=== PATIENT | male | born 1940 | race Two or more races ===

== ENCOUNTER 2016-07-10 17:23 | Inpatient (IN) | payer MEDICAID, MEDICARE ==
[~2016-07-10] VITALS: Ht 172.7 cm; Wt 77.1 kg
[~2016-07-10 17:23] MED LIST: ACET650S26 GT; ALBU2.5V13 HHN; AMIN30LI4 GT; ASCO500S2 GT; ASPI81TA2 GT; BACL10TA GT; BISA10SU8 RC; DOCU50LI GT; FAMO20TA8 GT; FOLI1TAB16 GT; GABA-534 GT; IPRA0.2S9 HHN; LACT-96 GT; MAGN400O6 GT; MULT1TAB11 GT; NA P133E RC; TAMS0.4C34 GT
--- NOTE | 2016-07-10 17:30 | NUR ---
NADER FROM [facility] FOR LOW O2 SAT- PT ON T PIECE. NOTED OBTUNDED. VSS. IV ACCESS DIVISION OPERATIONS MANAGER ON LH 22G. AT BS FOR EVAL. SAFETY AND COMFORT MEASURES PROVIDED. WILL MONITOR.
[2016-07-10] MEDS ORDERED: IV NS 0.9% 1,000 ML ONE (17:55)
[2016-07-10] MEDS ORDERED: IV SET PRIMARY PUMP SET 1 EA INFUS.SET MC ONE ×5 (17:55→21:39)
--- NOTE | 2016-07-10 17:55 | NUR ---
MANAGER DISH AT FOR BLOOD DRAW.
--- NOTE | 2016-07-10 17:55 | NUR ---
CALLED NURSING SUP. FOR INOCENCIO BED
[2016-07-10] MEDS ORDERED: IV NS 0.9% 1,000 ML BAG IV ONE (18:00)
--- NOTE | 2016-07-10 18:00 | NUR ---
IV ACCESS STARTED. PT MEDICATED ORDERED.
[2016-07-10 18:06] LABS: BASOPHILS % (AUTO) 0.2 % (0.0-2.0); EOSINOPHILS % (AUTO) 8.1 % (0.0-6.0); HEMATOCRIT 31 % (39-51); HEMOGLOBIN 10.3 g/dL (13.5-17.5); LYMPHOCYTES # (AUTO) 1.1 /CMM (0.8-4.8); LYMPHOCYTES % (AUTO) 8.2 % (20.0-44.0); MEAN CORPUSCULAR HEMOGLOBIN 30 PG (26.0-33.0); MEAN CORPUSCULAR HGB CONC 33 g/dl (31.0-36.0); MEAN CORPUSCULAR VOLUME 91 fL (80-96); MONOCYTES % (AUTO) 7.5 % (2.0-12.0); NEUTROPHILS # (AUTO) 9.8 /CMM (1.8-8.9); PLATELET COUNT (AUTO) 348 /CMM (150-450); RDW COEFFICIENT OF VARIATION 15.8 (11.5-15.0); RED BLOOD CELL COUNT(AUTO) 3.42 MIL/uL (4.5-6.0); WHITE BLOOD COUNT (AUTO) 12.9 K/uL (4.3-11.0)
[2016-07-10 18:13] LABS: CALCIUM, SERUM 8.8 mg/dL (8.5-10.1); CARBON DIOXIDE 39 mmol/L (21-32); CHLORIDE 93 mmol/L (98-107); CREATININE 0.7 mg/dL (0.6-1.3); GLUCOSE 73 mg/dL (74-106); POTASSIUM 4.2 mmol/L (3.5-5.1); SODIUM SERUM 130 mmol/L (136-145); UREA NITROGEN, BLOOD 17 mg/dL (7-18)
[2016-07-10 18:21] LABS: TROPONIN I < 0.017 ng/mL (0.00-0.056)
[2016-07-10] MEDS ORDERED: FLUO15GE TP (18:21)
[2016-07-10] MEDS ORDERED: FURO-145 GT (18:21)
[2016-07-10] MEDS ORDERED: FERR300L GT (18:21)
[2016-07-10] MEDS ORDERED: IPRA0.2S9 IH (18:21)
[2016-07-10] MEDS ORDERED: EPOE1VIA6 SQ (18:21)
[2016-07-10] MEDS ORDERED: BLOO-668 IN (18:21)
[2016-07-10] MEDS ORDERED: INSU100V3 SQ (18:21)
[2016-07-10] MEDS ORDERED: SCOP1PAT TD (18:21)
[2016-07-10] MEDS ORDERED: SACC250C6 GT (18:21)
[2016-07-10] MEDS ORDERED: BENZ1LOZ58 MM (18:21)
[2016-07-10] MEDS ORDERED: ALBU2.5V13 IH (18:21)
[2016-07-10] MEDS ORDERED: HYDR-3326 GT (18:21)
[2016-07-10] MEDS ORDERED: MONT10TA22 GT (18:21)
[2016-07-10] MEDS ORDERED: INSU100V7 SQ (18:21)
[2016-07-10] MEDS ORDERED: AMOX500C2 GT (18:21)
[2016-07-10 18:26] LABS: ALANINE AMINOTRANSFERASE 20 U/L (12-78); ALBUMIN 2.7 g/dL (3.4-5.0); ALKALINE PHOSPHATASE 70 U/L (46-116); ASPARTATE AMINOTRANSFERASE 17 U/L (15-37); B-TYPE NATRIURETIC PEPTIDE 221 PG/ML (0-125); BILIRUBIN,DIRECT 0.1 mg/dL (0.0-0.2); BILIRUBIN,TOTAL 0.2 mg/dL (0.2-1.0); TOTAL PROTEIN, SERUM 7.2 g/dL (6.4-8.2)
[2016-07-10] MEDS ORDERED: CEFTRIAXONE 1GM BAG (ER ONLY) 50 ML IV ONE ×2 (19:00→19:03)
[2016-07-10] MEDS ORDERED: VANCOMYCIN 1 GM in IV D5W 250 ML IV ONE (19:00)
[2016-07-10] MEDS ORDERED: AZITHROMYCIN 500 MG in IV D5W 250 ML IV ONE (19:00)
--- NOTE | 2016-07-10 19:00 | NUR ---
REPORT RECEIVED BY LABERTA OSORIO
--- NOTE | 2016-07-10 19:01 | NUR ---
PT OBTUNDED, CONNECTED TO TRACH, INTACT AND PATENT CONNECTED TO 02 5LMP. NO SOB NOTED. PT NOTED WITH GT INTACT AND PATENT. PT ALSO NOTED WITH F/C DRAINING WELL. PT ALSO NOTED WITH RASH THROUGHOUT BODY. PT GOWNED AND PLACED ON MONITOR. WILL CONTINUE TO MONITOR.
--- NOTE | 2016-07-10 19:04 | NUR ---
OCCULT STOOL COLLECTED.
--- NOTE | 2016-07-10 19:10 | NUR ---
CLEANED PT, STOOL OB OBTAINED, SENT.
--- NOTE | 2016-07-10 19:25 | NUR ---
PT ASSIGNED TO INOCENCIO BED 104
[2016-07-10] MEDS ORDERED: AZITHROMYCIN 500 MG VIAL ONE (19:50)
[2016-07-10] MEDS ORDERED: IV D5W 250 ML IV ONE ×2 (19:51→21:35)
--- NOTE | 2016-07-10 19:59 | NUR ---
INFORMED DR. MCGARRY PT NOTED WITH RASHS ON PRASANTH ARMS.
[2016-07-10] MEDS ORDERED: diphenhydrAMINE HCL 50 MG/ML VIAL IV ONE (20:00)
[2016-07-10] MEDS ORDERED: diphenhydrAMINE HCL 50 MG/ML VIAL ONE (20:00)
--- NOTE | 2016-07-10 20:15 | NUR ---
REPORT GIVEN TO ALBERTA CABRERA FOR C.O.C.
[2016-07-10 20:25] VITALS: BP 128/71
--- NOTE | 2016-07-10 20:38 | NUR ---
PT TRASNFERED PER ACLS PROTOCOL.
[2016-07-10 20:45] VITALS: BP 128/71
--- NOTE | 2016-07-10 20:45 | NUR ---
WAITER/WAITRESS COCKTAIL LOUNGE INITIAL NOTES RECEIVED PATIENT ASLEEP VIA GURNEY. RECEIVED REPORT FROM ER NURSE ROSALEE. NO S/S OF PAIN OR DISCOMFORT. RESPIRATIONS EVEN AND UNLABORED, WITH T-MASK 5LPMO2, SPO2 100%. SKIN WARM AND DRY TO TOUCH. WITH LAC 20 PATENT AND INTACT WITH ZITHROMAX RUNNING. PER REPORT VANCO STILL NEEDS TO BE GIVEN. WITH GT PATENT AND INTACT, IN PLACE. F/C DRAINING BY GRAVITY. ON TELE MONITOR SINUS RHYTHM. BODY ASSESSMENT DONE. HOB KEPT ELEVATED. SIDE RAILS UP AND LOCKED. BED KEPT AT LOWEST POSITION. WILL CONTINUE TO MONITOR.
[2016-07-10] MEDS ORDERED: ACETAMINOPHEN 650 MG/20.3 ML UDC GT PRN (21:00)
[2016-07-10] MEDS ORDERED: ENOXAPARIN SODIUM 40 MG/0.4 ML DISP.SYRIN SQ SCH (21:00)
[2016-07-10] MEDS ORDERED: MORPHINE SULFATE INJ 2 MG/ML DISP.SYRIN IV PRN (21:00)
[2016-07-10] MEDS ORDERED: BLOOD SUGAR DIAGNOSTIC 1 EACH STRIP IN SCH (21:00)
--- NOTE | 2016-07-10 21:00 | NUR ---
WITH ORDERS FOR ZOSYN, PATIENT WITH ALLERGY TO CEFTRIAXONE, INFORMED CINDA OLSON TO GIVE ZOSYN AND CONTINUE GTF ORDER FROM FACILITY.
[2016-07-10] MEDS ORDERED: FAMOTIDINE (20 MG) 20 MG TABLET ONE (21:35)
[2016-07-10] MEDS ORDERED: ENOXAPARIN SODIUM 40 MG/0.4 ML DISP.SYRIN SQ ONE (21:35)
[2016-07-10] MEDS ORDERED: VANCOMYCIN 1 GM VIAL ONE (21:35)
[2016-07-10] MEDS ORDERED: PIPERACILLIN /TAZOBACTAM 3.375 G VIAL IV ONE (21:35)
[2016-07-10] MEDS ORDERED: IV D5W 100 ML IV ONE (21:36)
[2016-07-10] MEDS ORDERED: SECONDARY IV SET 1 EA INFUS.SET MC ONE (21:40)
[2016-07-10] MEDS ORDERED: IV D5/ 0.9% NACL 1,000 ML IV ONE (21:40)
[2016-07-10] MEDS: IV D5/ 0.9% NACL 1,000 ML IV PRN (21:45)
[2016-07-10] MEDS: PIPERACILLIN /TAZOBACTAM 3.375 G in IV D5W 50 ML IV SCH (21:53)
[2016-07-10] MEDS: FAMOTIDINE (20 MG) 20 MG TABLET GT SCH (21:54)
[2016-07-10] MEDS: FIBERSOURCE HN 1,000 ML BOTTLE GT PRN (22:31)
[2016-07-10] MEDS ORDERED: Z GUARD REMEDY 2 OZ OINT TP PRN (23:30)
[2016-07-10] MEDS ORDERED: IPRATROPIUM NEB FS 0.5 MG/2.5 ML AMPUL.NEB NEB PRN (23:30)
[2016-07-10] MEDS ORDERED: BISACODYL SUPP (10 MG) 10 MG/SUPP.RECT SUPP.RECT RC PRN (23:30)
[2016-07-10] MEDS ORDERED: MENTHOL/CETYLPYRD (CEPACOL) 1 LOZ LOZENGE PO PRN (23:30)
[2016-07-10] MEDS ORDERED: ALBUTEROL FS 2.5 MG/3 ML VIAL.NEB NEB PRN (23:30)
[2016-07-10] MEDS ORDERED: INSULIN DETEMIR 100 UNIT/ML CARTRIDGE SQ ONE (23:46)
[2016-07-10] MEDS: INSULIN REGULAR, HUMAN 100 UNIT/ML 3 ML VIAL SQ PRN (23:56)
[2016-07-10] MEDS: INSULIN DETEMIR 100 UNIT/ML CARTRIDGE SQ SCH (23:56)
[2016-07-11] VITALS: BP 115/55
[2016-07-11] MEDS ORDERED: DEXTROSE 50%-WATER 50 ML DISP.SYRIN IV PRN
[2016-07-11] MEDS ORDERED: NA PHOS,M-B/NA PHOS,DI-BA 1 EA ENEMA RC PRN ×2 (00:30→08:30)
[2016-07-11] MEDS: IPRATROPIUM NEB FS 0.5 MG/2.5 ML AMPUL.NEB NEB SCH ×4 (01:27→20:20)
[2016-07-11] MEDS: ALBUTEROL FS 2.5 MG/3 ML VIAL.NEB NEB SCH ×4 (01:27→20:20)
[2016-07-11] MEDS ORDERED: BACLOFEN (10 MG) 10 MG TABLET ONE (01:28)
--- NOTE | 2016-07-11 01:38 | NUR ---
ALL [facility] ONCE CLEARED FOR PATIENTS SAFETY.
[2016-07-11 04:00] VITALS: BP 110/55
[2016-07-11] MEDS ORDERED: BACLOFEN (10 MG) 10 MG TABLET PO SCH (05:00)
[2016-07-11] MEDS ORDERED: ACETAMINOPHEN 325 MG TABLET ONE (05:01)
[2016-07-11] MEDS ORDERED: ACETAMINOPHEN 650 MG/20.3 ML UDC ONE (05:05)
[2016-07-11] MEDS: PIPERACILLIN /TAZOBACTAM 3.375 G in IV D5W 50 ML IV SCH (05:06)
[2016-07-11] MEDS: BLOOD SUGAR DIAGNOSTIC 1 EACH STRIP IN SCH ×4 (05:06→17:39)
[2016-07-11] MEDS: INSULIN REGULAR, HUMAN 100 UNIT/ML 3 ML VIAL SQ PRN ×2 (05:09→13:04)
[2016-07-11 05:56] LABS: BASOPHILS % (AUTO) 0.2 % (0.0-2.0); EOSINOPHILS # (AUTO) 0.6 /CMM (0.0-0.7); EOSINOPHILS % (AUTO) 5.1 % (0.0-6.0); HEMATOCRIT 30 % (39-51); HEMOGLOBIN 9.7 g/dL (13.5-17.5); LYMPHOCYTES # (AUTO) 1.2 /CMM (0.8-4.8); LYMPHOCYTES % (AUTO) 11.1 % (20.0-44.0); MEAN CORPUSCULAR HEMOGLOBIN 30 PG (26.0-33.0); MEAN CORPUSCULAR HGB CONC 33 g/dl (31.0-36.0); MEAN CORPUSCULAR VOLUME 92 fL (80-96); MONOCYTES # (AUTO) 0.9 /CMM (0.1-1.30); MONOCYTES % (AUTO) 8.6 % (2.0-12.0); NEUTROPHILS # (AUTO) 8.1 /CMM (1.8-8.9); PLATELET COUNT (AUTO) 332 /CMM (150-450); RDW COEFFICIENT OF VARIATION 16.8 (11.5-15.0); RED BLOOD CELL COUNT(AUTO) 3.24 MIL/uL (4.5-6.0); WHITE BLOOD COUNT (AUTO) 10.8 K/uL (4.3-11.0)
[2016-07-11 06:06] LABS: CALCIUM, SERUM 8.6 mg/dL (8.5-10.1); CREATININE 0.7 mg/dL (0.6-1.3); POTASSIUM 4.4 mmol/L (3.5-5.1)
--- NOTE | 2016-07-11 07:30 | NUR ---
RN NOTES RN NOTES RECEIVED PATIENT IN BED ASLEEP WITH BREATHING NORMAL, EVEN AND UNLABORED. NO SOB NOTED. ON COOL AEROSOL WITH O2 5L, SATURATING WELL. NO ACUTE DISTRESS NOTED. NO PAIN, NO DISCOMFORT NOTED. IV LAC AND LH ARE PATENT AND INTACT, NO INFILTRATION NOTED, CONT ON IVF PER ORDER. BOWEL SOUNDS PRESENT. ON GT FEED TOLERATED WELL. ASPIRATION PRECAUTION TAKEN. F/C IS PATENT AND INTACT, DRAINING WITH GRAVITY. PULSES PRESENT. SAFETY MEASURE OBSERVED. ALL NEEDS ATTENDED. CALL LIGHT WITH IN REACH. WILL CONT TO MONITOR.
--- NOTE | 2016-07-11 07:35 | NUR ---
WAREHOUSE ADMINISTRATOR CLOSING NOTES NO SIGNIFICANT CHANGES OVERNIGHT. ALL NEEDS ANTICIPATED AND MET. NO RESPIRATORY DISTRESS NOTED. ALL DUE MEDS GIVEN. TOLERATING GTF. F/C DRAINING. IVF RUNNING. HOB KEPT ELEVATED. SIDE RAILS UP AND LOCKED. BED KEPT AT LOWEST POSITION. CALL LIGHT KEPT WITHIN EASY REACH. CONTINUITY OF CARE ENDORSED TO AM NURSE.
[2016-07-11 08:00] VITALS: BP 129/47
[2016-07-11] MEDS ORDERED: ENOXAPARIN SODIUM 40 MG/0.4 ML DISP.SYRIN SQ SCH (08:29)
[2016-07-11] MEDS ORDERED: FIBER GT SCH (08:30)
[2016-07-11] MEDS ORDERED: [UNRECOGNIZED DRUG - OTHER] GT SCH (08:30)
[2016-07-11] MEDS ORDERED: LACTOSE FREE FOOD GT SCH (08:30)
[2016-07-11] MEDS ORDERED: IPRATROPIUM NEB FS 0.5 MG/2.5 ML AMPUL.NEB IH PRN (08:30)
[2016-07-11] MEDS ORDERED: INSULIN REGULAR, HUMAN 100 UNIT/ML 3 ML VIAL SQ PRN (08:30)
[2016-07-11] MEDS ORDERED: FEE PK DOSING 1 MIN EA MC ONE (08:49)
[2016-07-11] MEDS ORDERED: HYDROCODONE/APAP 5/325MG 1 EACH TABLET GT SCH (09:00)
[2016-07-11] MEDS ORDERED: GABAPENTIN 300 MG CAPSULE GT SCH (09:00)
[2016-07-11] MEDS ORDERED: Medication Not On Formulary EA (Saccharomyces Boulardii (Florastor) 250 MG) GT SCH (09:00)
[2016-07-11] MEDS ORDERED: FUROSEMIDE 20 MG TABLET GT SCH (09:00)
[2016-07-11] MEDS ORDERED: FOLIC ACID 1 MG TABLET GT SCH (09:00)
[2016-07-11] MEDS ORDERED: FERROUS SULFATE UDC 300 MG/5 ML UDC GT SCH (09:00)
[2016-07-11] MEDS ORDERED: DOCUSATE SODIUM LIQ 100 MG/10 ML UDC GT SCH (09:00)
[2016-07-11] MEDS ORDERED: SECONDARY IV SET 1 EA INFUS.SET MC ONE (09:09)
[2016-07-11] MEDS: LACTOBACILLUS RHAMNOSUS GG 1 EACH CAP.SPRINK PO SCH ×2 (09:25→17:39)
[2016-07-11] MEDS: FERROUS SULFATE UDC 300 MG/5 ML UDC PO SCH (09:25)
[2016-07-11] MEDS: DOCUSATE SODIUM LIQ 100 MG/10 ML UDC GT SCH (09:25)
[2016-07-11] MEDS: GABAPENTIN 300 MG CAPSULE GT SCH (09:25)
[2016-07-11] MEDS: FOLIC ACID 1 MG TABLET GT SCH (09:25)
[2016-07-11] MEDS: FUROSEMIDE 20 MG TABLET GT SCH (09:27)
[2016-07-11] MEDS: FAMOTIDINE (20 MG) 20 MG TABLET GT SCH ×2 (09:27→21:12)
[2016-07-11] MEDS: VANCOMYCIN 1 GM in IV D5W 250 ML IV SCH ×2 (09:28→21:13)
[2016-07-11] MEDS: HYDROCODONE/APAP 5/325MG 1 EACH TABLET GT SCH ×2 (09:29→21:13)
[2016-07-11] MEDS: FLUOCINONIDE 0.05% 15 GM OINT..GM. TP SCH ×2 (09:42→17:40)
[2016-07-11] MEDS ORDERED: FAMOTIDINE (20 MG) 20 MG TABLET GT SCH (11:00)
[2016-07-11 12:00] VITALS: BP 105/49
[2016-07-11] MEDS: PIPERACILLIN /TAZOBACTAM 4.5 G in IV D5W 50 ML IV SCH ×2 (12:56→17:39)
[2016-07-11] MEDS: BACLOFEN (10 MG) 10 MG TABLET GT SCH ×2 (12:56→21:13)
[2016-07-11] MEDS ORDERED: IPRATROPIUM NEB FS 0.5 MG/2.5 ML AMPUL.NEB HHN SCH (13:30)
[2016-07-11 16:00] VITALS: BP 101/43
[2016-07-11] MEDS: IV D5/ 0.9% NACL 1,000 ML IV PRN (17:58)
--- NOTE | 2016-07-11 19:50 | NUR ---
RN NOTES RECEIVED PT AWKE WATCHING TV ON BED. NO ACUTE RESP DISTRESS NALLELY. TRACH WITH C/A SATING 96% ABLE TO EXPRESS FEELINGS AOX 1 NON VERBAL. WITH GTF FIBERSOURCE @ 60 CC/HR NALLELY/ WELL INTACT PATENCY CHECKED NO RESIDUAL IV SITE ON LAC G 20 AND LEFT HAND G 22 WITH D5NS @ 70 CC/HR INTACT AND PATENT. F/C DRAINED WITH YELLOW COLOR URINE. KEPT PT CLEAN AND COMFORTABLE IN BED. BED LOCKED AND SECURED. OFFLOADED EXT WITH PILLOWS. REDUCED PRESSURE TO BONY PROMINENCE AREA. WILL CONTINUE TO MONITOR.
--- NOTE | 2016-07-11 19:52 | NUR ---
RN NOTES PATIENT ENDORSED TO NEXT SHIFT IN STABLE CONDITION WITH BREATHING NORMAL, EVEN AND UNLABORED. NO SOB NOTED. NO ACUTE DISTRESS NOTED. KEPT CLEAN, DRY AND COMFORTABLE. ALL NEEDS ATTENDED. CALL LIGHT WITH IN REACH. SAFETY MEASURE OBSERVED. WILL CONT TO MONITOR.
[2016-07-11 20:00] VITALS: BP 115/70
[2016-07-11] MEDS: TAMSULOSIN 0.4 MG CAP.SR.24H GT SCH (21:12)
[2016-07-11] MEDS: MONTELUKAST SODIUM (10MG) 10 MG TABLET GT SCH (21:13)
[2016-07-11] MEDS: ENOXAPARIN SODIUM 40 MG/0.4 ML DISP.SYRIN SQ SCH (21:14)
[2016-07-11] MEDS: FIBERSOURCE HN 1,000 ML BOTTLE GT PRN (21:14)
[2016-07-11] MEDS: INSULIN DETEMIR 100 UNIT/ML CARTRIDGE SQ SCH (21:32)
[2016-07-11] MEDS ORDERED: TAMSULOSIN 0.4 MG CAP.SR.24H GT SCH (22:00)
[2016-07-11] MEDS ORDERED: INSULIN GLARGINE HUM REC ANLOG 10 UNIT SQ SCH (22:00)
[2016-07-11] MEDS ORDERED: MONTELUKAST SODIUM (10MG) 10 MG TABLET GT SCH (22:00)
[2016-07-12] MEDS: PIPERACILLIN /TAZOBACTAM 4.5 G in IV D5W 50 ML IV SCH ×4 (00:22→17:00)
[2016-07-12] MEDS: BLOOD SUGAR DIAGNOSTIC 1 EACH STRIP IN SCH ×4 (00:31→17:01)
[2016-07-12] MEDS: INSULIN REGULAR, HUMAN 100 UNIT/ML 3 ML VIAL SQ PRN ×3 (00:41→11:36)
[2016-07-12] MEDS: ALBUTEROL FS 2.5 MG/3 ML VIAL.NEB NEB SCH ×4 (01:54→19:28)
[2016-07-12] MEDS: IPRATROPIUM NEB FS 0.5 MG/2.5 ML AMPUL.NEB NEB SCH ×4 (01:54→19:28)
[2016-07-12 04:00] VITALS: BP 115/50
[2016-07-12] MEDS: BACLOFEN (10 MG) 10 MG TABLET GT SCH ×3 (05:14→22:11)
--- NOTE | 2016-07-12 06:24 | NUR ---
RN NOTES PT REMAINED IN STABLE CONDITION TOLERATED TRACH WITH C/A SATING 97%. NO ACUTE RESP DISTRESS. SUCTIONED FREQ. DUE TO EXCESSIVE SECRETION WITH WHITISH THICK SECRETIONS. PT EXPRESSED. DENIED ANY PAIN REPOSITIONED Q 2HOURS AND PRN PT COMFORTABLE. F/C REMAINED INTACT WITH ADEQ URINE OUTPUT. IV SITE INTACT AND PATENT. NO S/S OF HYPO OR HYPERGLYCEMIA NOTED. PHOTO TAKEN FOR ANY SKIN ISSUE. KEPT CLEAN AND DRY. ALL NEEDS ATTENDED.
--- NOTE | 2016-07-12 07:00 | NUR ---
RN NOTES RECEIVED PT ON BED ,ALERT , NON VERBAL , TRACH PORTEX #8 WITH 35% COOL AEROSOL, TRACH CARE DONE , NO SOB NOTED, FIBERSOURCE @ 60 CC/HR RUNNING VIA GT , TOLERATING WELL, NO RESIDUAL IV SITE ON LAC G 20 AND LEFT HAND G 22 WITH D5NS @ 70 CC/HR INTACT AND PATENT. F/C DRAINED WITH YELLOW COLOR URINE.SR UP x3, CALL LIGHT WITHIN EASY REACH , OFFLOADED EXT WITH PILLOWS. REDUCED PRESSURE TO BONY PROMINENCE AREA. WILL CONTINUE TO MONITOR PT CLOSELY AND NOTIFY MD FOR ANY SIGNIFICANT CHANGES.
[2016-07-12 07:31] LABS: CALCIUM, SERUM 8.3 mg/dL (8.5-10.1); CREATININE 0.7 mg/dL (0.6-1.3); POTASSIUM 4.1 mmol/L (3.5-5.1)
[2016-07-12 08:00] VITALS: BP 130/65
[2016-07-12] MEDS: FERROUS SULFATE UDC 300 MG/5 ML UDC PO SCH (08:28)
[2016-07-12] MEDS: DOCUSATE SODIUM LIQ 100 MG/10 ML UDC GT SCH (08:28)
[2016-07-12] MEDS: FAMOTIDINE (20 MG) 20 MG TABLET GT SCH ×2 (08:29→22:11)
[2016-07-12] MEDS: LACTOBACILLUS RHAMNOSUS GG 1 EACH CAP.SPRINK PO SCH ×2 (08:29→16:00)
[2016-07-12] MEDS: FOLIC ACID 1 MG TABLET GT SCH (08:29)
[2016-07-12] MEDS: VANCOMYCIN 1 GM in IV D5W 250 ML IV SCH ×2 (08:29→21:00)
[2016-07-12] MEDS: HYDROCODONE/APAP 5/325MG 1 EACH TABLET GT SCH ×2 (08:29→22:12)
[2016-07-12] MEDS: GABAPENTIN 300 MG CAPSULE GT SCH (08:29)
[2016-07-12] MEDS: FUROSEMIDE 20 MG TABLET GT SCH (08:29)
[2016-07-12] MEDS: FLUOCINONIDE 0.05% 15 GM OINT..GM. TP SCH ×2 (08:31→16:02)
[2016-07-12] MEDS: LORAZEPAM INJ 2 MG/ML VIAL IV PRN ×2 (10:00→15:58)
[2016-07-12] MEDS ORDERED: HYDROGEL DRESSING 90 GM TUBE TP PRN (10:30)
--- NOTE | 2016-07-12 10:37 | NUR ---
WOUND CARE CONSULT: PT PRESENTS WITH RASHES AND WOUNDS, PRESENT ON ADMISSION. RAISED SCAR NOTED TO SACRAL AREA. RECOMMENDATIONS MADE FOR SKIN PROTECTION AND WOUND CARE. DISCUSSED WITH NURSING STAFF. PT ON RAFFAELE ISOFLEX LOW AIRLOSS BED. PT HAS CONTRACTED LOWER EXTREMITIES. PT TO BE TURNED AND REPOSITIONED EVERY 2 HRS PT CONDITION PERMITS, HEELS FLOATED. IN AGREEMENT WITH PLAN OF CARE. Addendum: 07/12/16 at 1039 by DOMINIQUE BLUNT WNDNU Amended: Links added.
[2016-07-12] MEDS: HYDROGEL DRESSING 90 GM TUBE TP SCH (11:33)
[2016-07-12] MEDS: CLOTRIMAZOLE 1% 15 GM TUBE TP SCH ×2 (11:33→16:03)
[2016-07-12 12:00] VITALS: BP_SYST 101; BP_DIAS 43; BP_DIAS 53
--- NOTE | 2016-07-12 12:00 | NUR ---
RN NOTES DR GILLIAM NOTIFIED REGARDING DIETITIAN RECOMMENDATION FOR TUBE FEEDING AND VITAMIN C AND MVI , NO NEW ORDER GIVEN .
[2016-07-12] MEDS: FIBERSOURCE HN 1,000 ML BOTTLE GT PRN (14:53)
[2016-07-12 16:00] VITALS: BP 118/62
--- NOTE | 2016-07-12 18:06 | NUR ---
RN NOTES TRACH CARE DONE, VSS STABLE, TOLERATING TF WELL, NO RESIDUAL NOTED, ON TELE SR -ST , SR UP x3. CALL LIGHT WITHIN EASY REACH , MEDICATED PER MD ORDER , NO SIGNIFICANT CHANGES NOTED ON THIS SHIFT.
--- NOTE | 2016-07-12 19:00 | NUR ---
RN INITIAL NOTES: PT RECEIVED FROM AM STAFF. PT WITH TRACH PORTEX 8 /COOL AEROSOL W/FIO2 35%, TOLERATING WELL, NO SHORTNESS OF BREATH OR S/S OF DISTRESS. ON TELE ST/HR 108. SUCTION W/ WHITE THICK SECRETION. ON GTF/FIBERSOUCE TOLERATING WELL. PATENCY CHECK NO RESIDUAL. IV SITE LAC/20G LH 22HL. INTACT AND PATENT FLUSHED. KEPT PT CLEAN AND DRY. OFF LOADED EXTREMITIES WITH PILLOWS. WILL CONTINUE TO MONITOR PT.
[2016-07-12 20:00] VITALS: BP 125/61
[2016-07-12] MEDS: TAMSULOSIN 0.4 MG CAP.SR.24H GT SCH (22:11)
[2016-07-12] MEDS: ENOXAPARIN SODIUM 40 MG/0.4 ML DISP.SYRIN SQ SCH (22:13)
[2016-07-12] MEDS: INSULIN DETEMIR 100 UNIT/ML CARTRIDGE SQ SCH (22:22)
[2016-07-12] MEDS: MONTELUKAST SODIUM (10MG) 10 MG TABLET GT SCH (22:22)
[2016-07-13] VITALS (7 sets, daily range): BP systolic 98–135; BP diastolic 43–90
[2016-07-13] MEDS: PIPERACILLIN /TAZOBACTAM 4.5 G in IV D5W 50 ML IV SCH ×4 (00:33→17:38)
[2016-07-13] MEDS: BLOOD SUGAR DIAGNOSTIC 1 EACH STRIP IN SCH ×4 (00:41→17:38)
[2016-07-13] MEDS: INSULIN REGULAR, HUMAN 100 UNIT/ML 3 ML VIAL SQ PRN ×3 (00:44→17:48)
[2016-07-13] MEDS: ALBUTEROL FS 2.5 MG/3 ML VIAL.NEB NEB SCH ×4 (01:53→19:19)
[2016-07-13] MEDS: IPRATROPIUM NEB FS 0.5 MG/2.5 ML AMPUL.NEB NEB SCH ×4 (01:53→19:19)
[2016-07-13] MEDS: LORAZEPAM INJ 2 MG/ML VIAL IV PRN ×2 (04:34→16:07)
[2016-07-13] MEDS: BACLOFEN (10 MG) 10 MG TABLET GT SCH ×3 (04:43→21:37)
[2016-07-13] MEDS ORDERED: IV D5/ 0.9% NACL 0 ML IV ONE (04:50)
[2016-07-13] MEDS ORDERED: IV NS 0.9% 250 ML IV ONE (05:39)
--- NOTE | 2016-07-13 07:02 | NUR ---
RN NOTES TRACH CARE DONE, VSS STABLE, TOLERATING TF WELL, AFEBRILE, SUCTIONED FREQUENTLY, NO RESIDUAL NOTED, ON TELE SR 98 , SR UP x3. CALL LIGHT WITHIN EASY REACH , MEDICATED PER MD ORDER , NO SIGNIFICANT CHANGES NOTED ON SCALE TANK OPERATOR. WILL ENDORSE TO MORNING SHIFT.
[2016-07-13 07:15] LABS: CALCIUM, SERUM 9.1 mg/dL (8.5-10.1); CREATININE 0.7 mg/dL (0.6-1.3); MAGNESIUM 1.9 mg/dL (1.8-2.4); POTASSIUM 4.4 mmol/L (3.5-5.1)
[2016-07-13] MEDS: HYDROGEL DRESSING 90 GM TUBE TP SCH (08:05)
[2016-07-13] MEDS: FAMOTIDINE (20 MG) 20 MG TABLET GT SCH ×2 (08:16→21:38)
[2016-07-13] MEDS: GABAPENTIN 300 MG CAPSULE GT SCH (08:16)
[2016-07-13] MEDS: FUROSEMIDE 20 MG TABLET GT SCH (08:16)
[2016-07-13] MEDS: LACTOBACILLUS RHAMNOSUS GG 1 EACH CAP.SPRINK PO SCH ×2 (08:16→16:04)
[2016-07-13] MEDS: HYDROCODONE/APAP 5/325MG 1 EACH TABLET GT SCH ×2 (08:17→21:38)
[2016-07-13] MEDS: FOLIC ACID 1 MG TABLET GT SCH (08:17)
[2016-07-13] MEDS: DOCUSATE SODIUM LIQ 100 MG/10 ML UDC GT SCH (08:17)
[2016-07-13] MEDS: FERROUS SULFATE UDC 300 MG/5 ML UDC PO SCH (08:17)
[2016-07-13] MEDS: CLOTRIMAZOLE 1% 15 GM TUBE TP SCH ×2 (08:21→16:01)
[2016-07-13] MEDS: FLUOCINONIDE 0.05% 15 GM OINT..GM. TP SCH ×2 (08:21→16:00)
[2016-07-13 08:26] LABS: BASOPHILS % (AUTO) 0.3 % (0.0-2.0); EOSINOPHILS # (AUTO) 0.5 /CMM (0.0-0.7); EOSINOPHILS % (AUTO) 4.6 % (0.0-6.0); HEMATOCRIT 30 % (39-51); HEMOGLOBIN 9.7 g/dL (13.5-17.5); LYMPHOCYTES # (AUTO) 1.8 /CMM (0.8-4.8); LYMPHOCYTES % (AUTO) 16.4 % (20.0-44.0); MEAN CORPUSCULAR HEMOGLOBIN 30 PG (26.0-33.0); MEAN CORPUSCULAR HGB CONC 32 g/dl (31.0-36.0); MEAN CORPUSCULAR VOLUME 92 fL (80-96); MONOCYTES # (AUTO) 1.1 /CMM (0.1-1.30); MONOCYTES % (AUTO) 10.3 % (2.0-12.0); NEUTROPHILS # (AUTO) 7.6 /CMM (1.8-8.9); NEUTROPHILS % (AUTO) 68.4 % (43.0-81.0); PLATELET COUNT (AUTO) 306 /CMM (150-450); RDW COEFFICIENT OF VARIATION 17.4 (11.5-15.0); RED BLOOD CELL COUNT(AUTO) 3.28 MIL/uL (4.5-6.0); WHITE BLOOD COUNT (AUTO) 11.1 K/uL (4.3-11.0)
--- NOTE | 2016-07-13 09:00 | NUR ---
INSTITUTIONAL RESEARCH COORDINATOR NOTE Pt in bed. AOx1, anxious. Denies pain. Gtube going at 60ml/hr, no residuals. Tpiece, O2 100% on cool aerosol. Tele monitoring. Esparza patent with yellow urine. Ok'd by pharmacy to hang vanco in left hand PIV, left AC SL. Will cont to monitor.
[2016-07-13] MEDS: VANCOMYCIN 0.75 GM in IV D5W 250 ML IV SCH ×2 (10:54→21:43)
[2016-07-13] MEDS: FIBERSOURCE HN 1,000 ML BOTTLE GT PRN (12:09)
--- NOTE | 2016-07-13 17:55 | NUR ---
POND SCALER NOTE No changes. Esparza with adequate UO. Restless, ativan x1 given, desatted to 88-90's from ativan. VSS. Will endorse to next RN.
--- NOTE | 2016-07-13 19:30 | NUR ---
RN NOTES RECEIVED PT RESTING ON BED WITH PORTEX 8 AND C/A FIO2 35%. NO SOB OR DISTRESS. SATING 96% BILATERAL BREATH SOUND DIMINISHED/AOX 1-2 ABLE TO EXPRESSED FEELINGS AND MOUTHING NEEDS BUT UNABLE TO UNDERSTAND. SR HR 94 DENIES PAIN. WITH GTF FIBERSOURCE @ 60 CC/HR PATENCY CHECKED ZERO RESIDUAL. IV SITE ON LAC G 20 AND LH G 22 INTACT AND PATENT/ F/C DRAINED WITH YELLOW COLOR URINE VIA GRAVITY. KEPT PT CLEAN AND DRY OFFLOADED EXT WITH PILLOWS. WILL MONITORED CLOSELY.
[2016-07-13] MEDS: TAMSULOSIN 0.4 MG CAP.SR.24H GT SCH (21:38)
[2016-07-13] MEDS: MONTELUKAST SODIUM (10MG) 10 MG TABLET GT SCH (21:38)
[2016-07-13] MEDS: ENOXAPARIN SODIUM 40 MG/0.4 ML DISP.SYRIN SQ SCH (21:39)
[2016-07-13] MEDS: INSULIN DETEMIR 100 UNIT/ML CARTRIDGE SQ SCH (21:53)
[2016-07-14] VITALS: BP 112/64
[2016-07-14] MEDS: PIPERACILLIN /TAZOBACTAM 4.5 G in IV D5W 50 ML IV SCH ×5 (00:50→23:51)
[2016-07-14] MEDS: INSULIN REGULAR, HUMAN 100 UNIT/ML 3 ML VIAL SQ PRN ×4 (00:53→23:58)
[2016-07-14] MEDS: LORAZEPAM INJ 2 MG/ML VIAL IV PRN (00:56)
[2016-07-14] MEDS: ALBUTEROL FS 2.5 MG/3 ML VIAL.NEB NEB SCH ×4 (01:39→19:24)
[2016-07-14] MEDS: IPRATROPIUM NEB FS 0.5 MG/2.5 ML AMPUL.NEB NEB SCH ×4 (01:39→19:24)
[2016-07-14 04:00] VITALS: BP 133/60
[2016-07-14] MEDS: FIBERSOURCE HN 1,000 ML BOTTLE GT PRN (05:30)
[2016-07-14] MEDS: BACLOFEN (10 MG) 10 MG TABLET GT SCH ×3 (05:30→21:18)
[2016-07-14] MEDS: BLOOD SUGAR DIAGNOSTIC 1 EACH STRIP IN SCH ×5 (05:32→23:53)
--- NOTE | 2016-07-14 06:41 | NUR ---
RN NOTES PT ASLEEP AND RESTING WELL ON THIS SHIFT NO SIGNIFICANT CHANGES NOTED. AFEBRILE VS MAINTAINED WNL. ALL DUE MEDICINE TOLERATED WELL CONTINUE ON IV ATB ORDERED. KEPT EXT OFFLOADED WITH PILLOWS. KEPT CLEAN AND DRY. FREQ. MONITOR AND SUCTIONED. WILL CONTINUE TO MONITOR.
[2016-07-14 06:59] LABS: CALCIUM, SERUM 8.8 mg/dL (8.5-10.1); CREATININE 0.6 mg/dL (0.6-1.3)
[2016-07-14 07:19] LABS: POTASSIUM 4.1 mmol/L (3.5-5.1)
--- NOTE | 2016-07-14 07:23 | NUR ---
FLEET MECHANIC INITIAL NOTES RECEIVED REPORT AND PT FROM PM NURSE, PT RESTING IN BED NOT IN ANY ACUTE DISTRESS OR SOB, ON TPIECE PORTEX 8 WITH FIO2 35% SAT ABOVE 97%, ON TELE MON SR WITH HR 86, , BAPTISTE CATH DRAINING URINE VIA GRAVITY, ON GTUBE FEEDING INTACT RUNNING FIBERSOURCE @ 60 C[facility] NO RESIDUAL NOTED, LT AC 20 G AND LT HAND 22 G ALL INTACT AND PATENT NO S.S OF INFILTRATION, ALL NEEDS MET, ALL SAFETY MEASURES INITIATED SIDE RAILS X2, BED LOW AND LOCKED, CALL LIGHT WITHIN REACH.
[2016-07-14 08:00] VITALS: BP_SYST 124; BP_DIAS 54; BP_DIAS 56
[2016-07-14] MEDS: FOLIC ACID 1 MG TABLET GT SCH (08:24)
[2016-07-14] MEDS: FERROUS SULFATE UDC 300 MG/5 ML UDC PO SCH (08:24)
[2016-07-14] MEDS: FAMOTIDINE (20 MG) 20 MG TABLET GT SCH ×2 (08:24→21:18)
[2016-07-14] MEDS: FUROSEMIDE 20 MG TABLET GT SCH (08:24)
[2016-07-14] MEDS: LACTOBACILLUS RHAMNOSUS GG 1 EACH CAP.SPRINK PO SCH ×2 (08:24→17:49)
[2016-07-14] MEDS: GABAPENTIN 300 MG CAPSULE GT SCH (08:24)
[2016-07-14] MEDS: DOCUSATE SODIUM LIQ 100 MG/10 ML UDC GT SCH (08:24)
[2016-07-14] MEDS: CLOTRIMAZOLE 1% 15 GM TUBE TP SCH ×2 (08:25→17:50)
[2016-07-14] MEDS: FLUOCINONIDE 0.05% 15 GM OINT..GM. TP SCH ×2 (08:25→17:49)
[2016-07-14] MEDS: HYDROGEL DRESSING 90 GM TUBE TP SCH (08:25)
[2016-07-14] MEDS: HYDROCODONE/APAP 5/325MG 1 EACH TABLET GT SCH ×2 (08:32→21:18)
[2016-07-14] MEDS: VANCOMYCIN 0.75 GM in IV D5W 250 ML IV SCH ×2 (08:32→21:17)
[2016-07-14 12:00] VITALS: BP 135/64
--- NOTE | 2016-07-14 14:00 | NUR ---
CALLED TO PATIENT'S ROOM DUE TO DESATURATION. UPON ARRIVAL PATIENT'S SP02=96%. TREATMENT GIVEN AND SUCTIONED TO OBTAIN LARGE THICK OLIVAREZ SECRETIONS. WILL CONTINUE TO MONITOR.
[2016-07-14 16:00] VITALS: BP 112/46
--- NOTE | 2016-07-14 18:25 | NUR ---
COPRA PROCESSOR ENDING NOTES NO ACUTE CHANGES NOTED, PT STABLE AND WILL ENDORSE TO PM NURSE.
--- NOTE | 2016-07-14 19:20 | NUR ---
RN NOTES RECEIVED PT RESTING ON BED WITH PORTEX 8 AND C/A FIO2 35%. NO SOB OR DISTRESS. SATURATION WENT TO 86% SUCTIONED WITH MODERATE WHITISH THICK SECRETION SATING 95% AFETR SX. BILATERAL BREATH SOUND DIMINISHED AOX 1-2 ABLE TO EXPRESSED FEELINGS AND MOUTH NEEDS. SR HR 94 DENIES PAIN. WITH GTF FIBERSOURCE @ 60 CC/HR PATENCY CHECKED ZERO RESIDUAL. IV SITE ON LAC G 20 AND LH G 22 INTACT AND PATENT/ F/C DRAINED WITH YELLOW COLOR URINE VIA GRAVITY. KEPT PT CLEAN AND DRY OFFLOADED EXT WITH PILLOWS. REDUCED PRESSURE TO BONY PROMINENCE AREA. WILL MONITORED CLOSELY.
[2016-07-14 20:00] VITALS: BP 116/57
[2016-07-14] MEDS: MONTELUKAST SODIUM (10MG) 10 MG TABLET GT SCH (21:18)
[2016-07-14] MEDS: ENOXAPARIN SODIUM 40 MG/0.4 ML DISP.SYRIN SQ SCH (21:18)
[2016-07-14] MEDS: TAMSULOSIN 0.4 MG CAP.SR.24H GT SCH (21:18)
[2016-07-14] MEDS: INSULIN DETEMIR 100 UNIT/ML CARTRIDGE SQ SCH (21:29)
[2016-07-15] VITALS: BP 107/53
[2016-07-15] MEDS: FIBERSOURCE HN 1,000 ML BOTTLE GT PRN (00:05)
[2016-07-15] MEDS: IPRATROPIUM NEB FS 0.5 MG/2.5 ML AMPUL.NEB NEB SCH ×3 (01:23→13:06)
[2016-07-15] MEDS: ALBUTEROL FS 2.5 MG/3 ML VIAL.NEB NEB SCH ×3 (01:23→13:06)
[2016-07-15 04:00] VITALS: BP 106/60
--- NOTE | 2016-07-15 04:13 | NUR ---
EXTRACTIONS TECHNOLOGIST NOTES RECEIVED REPORT FROM RORY. PATIENT IN STABLE CONDITION. NO RESPIRATORY DISTRESS NOTED. WILL CONTINUE TO MONITOR.
--- NOTE | 2016-07-15 04:15 | NUR ---
RN NOTES TRANSFER CARE TO [facility] FOR CONTINUITY OF CARE
[2016-07-15] MEDS: BACLOFEN (10 MG) 10 MG TABLET GT SCH ×2 (05:21→12:25)
[2016-07-15] MEDS: BLOOD SUGAR DIAGNOSTIC 1 EACH STRIP IN SCH ×2 (05:21→11:36)
[2016-07-15] MEDS: PIPERACILLIN /TAZOBACTAM 4.5 G in IV D5W 50 ML IV SCH ×2 (05:21→11:36)
[2016-07-15] MEDS ORDERED: SECONDARY IV SET 1 EA INFUS.SET MC ONE (05:22)
--- NOTE | 2016-07-15 06:38 | NUR ---
HAM ROLLING MACHINE OPERATOR CLOSING NOTES NO SIGNIFICANT CHANGES OVERNIGHT. NO RESPIRATORY DISTRESS NOTED. SUCTIONED NEEDED. KEPT CLEAN AND DRY. TURNED AND REPOSITIONED Q2 AND PRN. TOLERATED GTF. SIDE RAILS UP AND LOCKED. BED KEPT AT LOWEST POSITION. HOB KEPT ELEVATED. CALL LIGHT KEPT WITHIN EASY REACH. WILL ENDORSE CONTINUITY OF CARE TO AM NURSE.
[2016-07-15 06:56] LABS: CALCIUM, SERUM 8.8 mg/dL (8.5-10.1); CREATININE 0.7 mg/dL (0.6-1.3); POTASSIUM 4.4 mmol/L (3.5-5.1)
[2016-07-15 08:00] VITALS: BP 125/65
--- NOTE | 2016-07-15 08:00 | NUR ---
STRUCTURAL STEEL EQUIPMENT ERECTOR NOTE PATIENT IN BED, VERY ANXIOUS AND RESTLESS, REPOSITION DONE ,ASKED RT TO DO BREATHING TX , WITH TRACH TO T [place] TO COLLER AEROSOL 36% 8L O2 , IN TELE MONITOR, SR , WITH F\C TO GRAVITY WITH YELLOW COLOR URINE , ON ISOFLEX BED FOR SKIN MANAGEMENT , WITH GTUBE FEEDING ORDERED NO RESIDUAL NOTED , KEEP HOB ELEVATED AT ALL TIME,BED IN LOWEST AND LOCKED POSITION , PLAN OF CARE DISCUSSED WITH PATIENT , LT HAND HL FLUSHED WELL . CHEST X RAY DONE ORDERED WILL CONT TO MONITOR CLOSELY
[2016-07-15] MEDS: DOCUSATE SODIUM LIQ 100 MG/10 ML UDC GT SCH (08:01)
[2016-07-15] MEDS: FERROUS SULFATE UDC 300 MG/5 ML UDC PO SCH (08:01)
[2016-07-15] MEDS: LACTOBACILLUS RHAMNOSUS GG 1 EACH CAP.SPRINK PO SCH ×2 (08:01→16:20)
[2016-07-15] MEDS: FUROSEMIDE 20 MG TABLET GT SCH (08:01)
[2016-07-15] MEDS: GABAPENTIN 300 MG CAPSULE GT SCH (08:01)
[2016-07-15] MEDS: HYDROGEL DRESSING 90 GM TUBE TP SCH (08:02)
[2016-07-15] MEDS: FAMOTIDINE (20 MG) 20 MG TABLET GT SCH (08:02)
[2016-07-15] MEDS: HYDROCODONE/APAP 5/325MG 1 EACH TABLET GT SCH (08:02)
[2016-07-15] MEDS: VANCOMYCIN 0.75 GM in IV D5W 250 ML IV SCH (08:02)
[2016-07-15] MEDS: FOLIC ACID 1 MG TABLET GT SCH (08:02)
[2016-07-15] MEDS: FLUOCINONIDE 0.05% 15 GM OINT..GM. TP SCH ×2 (08:03→16:20)
[2016-07-15] MEDS: CLOTRIMAZOLE 1% 15 GM TUBE TP SCH ×2 (08:03→16:21)
--- NOTE | 2016-07-15 09:00 | NUR ---
WIRED MUSIC OPERATOR NOTE VERY AGITATED ATIVAN 0.25 MG IV GIVEN ORDERED
[2016-07-15] MEDS ORDERED: IV SET PRIMARY PUMP SET 1 EA INFUS.SET MC ONE (09:36)
[2016-07-15] MEDS ORDERED: IV NS 0.9% 500 ML IV ONE (09:38)
[2016-07-15] MEDS ORDERED: IV NS 0.9% 250 ML IV ONE (09:39)
[2016-07-15] MEDS: LORAZEPAM INJ 2 MG/ML VIAL IV PRN (09:54)
--- NOTE | 2016-07-15 11:00 | NUR ---
FIELD PROPERTY LOSS SPECIALIST NOTE PER DR GILLIAM DISCHARGE TO SNF CASE [facility]I ANDRES
[2016-07-15] MEDS: INSULIN REGULAR, HUMAN 100 UNIT/ML 3 ML VIAL SQ PRN (11:39)
[2016-07-15 12:00] VITALS: BP 133/60
--- NOTE | 2016-07-15 13:00 | NUR ---
SPONGE PRESS OPERATOR NOTE ALL NEEDS ATTENDED ,NOT IN ACUTE DISTRESS
[2016-07-15 16:00] VITALS: BP 118/59
--- NOTE | 2016-07-15 16:30 | NUR ---
RADIO FREQUENCY DESIGN ENGINEER NOTE CALLED TO FACILITY SPOKE WITH RAHAT SHAH GIVEN
--- NOTE | 2016-07-15 17:30 | NUR ---
HAM PUMPER NOTE TELE REMOVED , HL REMOVED WENT TO SNF WITH STABLE CONDITION
--- NOTE | 2016-07-15 17:32 | NUR ---
APPEALS ANALYST NOTE AMBULANCE ARRIVED REPORT GIVEN
== END 2016-07-15 18:00 | DRG 720 ==
LOC: ER 17:25 → TELE-TD 19:57 → TELE1 21:30 → MEDSG1 07-11 14:42 → TELE1 07-12 11:43
PROVIDERS: ADMIT Legal Medicine; ATTEND Legal Medicine
DX: A41.9 Sepsis, unspecified organism (principal); J96.20 Acute and chronic respiratory failure, unspecified whether with hypoxia or hypercapnia; G93.40 Encephalopathy, unspecified; G82.50 Quadriplegia, unspecified; J96.10 Chronic respiratory failure, unspecified whether with hypoxia or hypercapnia; J15.9 Unspecified bacterial pneumonia; Z93.0 Tracheostomy status; E11.22 Type 2 diabetes mellitus with diabetic chronic kidney disease; I25.10 Atherosclerotic heart disease of native coronary artery without angina pectoris; I12.9 Hypertensive chronic kidney disease with stage 1 through stage 4 chronic kidney disease, or unspecified chronic kidney disease; J44.0 Chronic obstructive pulmonary disease with (acute) lower respiratory infection; J45.909 Unspecified asthma, uncomplicated; M19.90 Unspecified osteoarthritis, unspecified site; M54.5 Low back pain; G89.29 Other chronic pain; G95.9 Disease of spinal cord, unspecified; B86 Scabies; R21 Rash and other nonspecific skin eruption; K21.9 Gastro-esophageal reflux disease without esophagitis; N18.9 Chronic kidney disease, unspecified; N40.0 Benign prostatic hyperplasia without lower urinary tract symptoms; Y95 Nosocomial condition
CPT/HCPCS: 31720; 36415; 71010-TC; 80048-TC; 80076-TC; 80202-TC; 82962-TC; 83605-TC; 83735-TC; 83880; 84484-TC; 85025-TC; 87040-TC; 87070-TC; 87081-TC; 87186-TC; 94640-TC; 94760-TC; A4606; A6248; A6253; A6402; J0456; J0696; J1200; J1650; J1815; J2060; J2543; J3370; J7030; J7040; J7042; J7050; J7060; Z7610

== ENCOUNTER 2017-05-29 16:50 | Inpatient (IN) | payer MEDICARE, MEDICAID ==
[~2017-05-29] VITALS: Ht 170.2 cm; Wt 68.0 kg
[~2017-05-29 16:50] MED LIST changes: +ALBU2.5V13 IH; -AMIN30LI4 GT; +AMOX500C2 GT; -ASCO500S2 GT; -ASPI81TA2 GT; +BENZ1LOZ58 MM; +BLOO-668 IN; +FERR300L GT; +FLUO15GE TP; +FURO-145 GT; +HYDR-3974 GT; +INSU100V3 SQ; +INSU100V7 SQ; +IPRA0.2S9 IH; +MONT10TA22 GT; -MULT1TAB11 GT; +SACC250C GT; +SCOP1PAT TD
[2017-05-29 18:13] LABS: BASOPHILS % (AUTO) 0.3 % (0.0-2.0); EOSINOPHILS # (AUTO) 0.2 /CMM (0.0-0.7); EOSINOPHILS % (AUTO) 1.9 % (0.0-6.0); HEMATOCRIT 30 % (39-51); HEMOGLOBIN 10.2 g/dL (13.5-17.5); LYMPHOCYTES # (AUTO) 1.1 /CMM (0.8-4.8); LYMPHOCYTES % (AUTO) 11.5 % (20.0-44.0); MEAN CORPUSCULAR HEMOGLOBIN 30 PG (26.0-33.0); MEAN CORPUSCULAR HGB CONC 35 g/dl (31.0-36.0); MEAN CORPUSCULAR VOLUME 87 fL (80-96); MONOCYTES # (AUTO) 0.6 /CMM (0.1-1.30); MONOCYTES % (AUTO) 6.5 % (2.0-12.0); NEUTROPHILS # (AUTO) 7.8 /CMM (1.8-8.9); NEUTROPHILS % (AUTO) 79.8 % (43.0-81.0); PLATELET COUNT (AUTO) 331 /CMM (150-450); RDW COEFFICIENT OF VARIATION 14.8 (11.5-15.0); RED BLOOD CELL COUNT(AUTO) 3.39 MIL/uL (4.5-6.0); WHITE BLOOD COUNT (AUTO) 9.7 K/uL (4.3-11.0)
[2017-05-29] MEDS ORDERED: EPOE1VIA6 SQ (18:15)
[2017-05-29] MEDS ORDERED: FINA5TAB11 GT (18:15)
[2017-05-29] MEDS ORDERED: HYDR-552 PO (18:15)
[2017-05-29] MEDS ORDERED: NUT.237L30 GT (18:15)
[2017-05-29] MEDS ORDERED: ASPI-1169 PO (18:15)
[2017-05-29 18:23] LABS: CALCIUM, SERUM 9.1 mg/dL (8.5-10.1); CARBON DIOXIDE 35 mmol/L (21-32); CHLORIDE 93 mmol/L (98-107); CREATININE 0.7 mg/dL (0.6-1.3); GLUCOSE 112 mg/dL (74-106); POTASSIUM 5.1 mmol/L (3.5-5.1); SODIUM SERUM 127 mmol/L (136-145); UREA NITROGEN, BLOOD 31 mg/dL (7-18)
[2017-05-29 18:30] LABS: ALANINE AMINOTRANSFERASE 28 U/L (12-78); ALBUMIN 2.8 g/dL (3.4-5.0); ALKALINE PHOSPHATASE 75 U/L (46-116); ASPARTATE AMINOTRANSFERASE 19 U/L (15-37); BILIRUBIN,DIRECT 0.2 mg/dL (0.0-0.2); BILIRUBIN,TOTAL 0.5 mg/dL (0.2-1.0); TOTAL PROTEIN, SERUM 7.3 g/dL (6.4-8.2)
[2017-05-29 18:31] LABS: TROPONIN I < 0.017 ng/mL (0.00-0.056)
[2017-05-29 18:32] LABS: INR 0.94 (0.85-1.15)
[2017-05-29 20:00] VITALS: BP 94/52
[2017-05-29] MEDS ORDERED: IPRATROPIUM NEB FS 0.5 MG/2.5 ML AMPUL.NEB IH PRN (23:00)
[2017-05-29] MEDS ORDERED: MAGNESIUM HYDROXIDE 30 ML UDC GT PRN (23:00)
[2017-05-29] MEDS ORDERED: NA PHOS,M-B/NA PHOS,DI-BA 1 EA ENEMA RC PRN (23:00)
[2017-05-29] MEDS ORDERED: ALBUTEROL FS 2.5 MG/0.5 ML VIAL.NEB IH PRN (23:00)
[2017-05-29] MEDS ORDERED: ACETAMINOPHEN 650 MG/20.3 ML UDC GT PRN (23:00)
[2017-05-29] MEDS ORDERED: HYDROCODONE/APAP 5/325MG 1 EACH TABLET PO PRN (23:00)
[2017-05-29] MEDS ORDERED: BISACODYL SUPP (10 MG) 10 MG/SUPP.RECT SUPP.RECT RC PRN (23:00)
[2017-05-29] MEDS ORDERED: LEVOFLOXACIN 500 MG /D5W 100ML 100 ML IV ONE (23:24)
[2017-05-29] MEDS ORDERED: VANCOMYCIN 1 GM in IV NS 0.9% 250 ML IV ONE (23:30)
[2017-05-30] VITALS: BP 121/75
[2017-05-30] MEDS ORDERED: DEXTROSE 50%-WATER 50 ML DISP.SYRIN IV PRN
[2017-05-30] MEDS: LEVOFLOXACIN 500 MG /D5W 100ML 500 MG in PREMIX 1 EA IV SCH ×2 (00:11→22:44)
[2017-05-30] MEDS ORDERED: VANCOMYCIN 1 GM VIAL ONE (00:59)
[2017-05-30] MEDS: IPRATROPIUM NEB FS 0.5 MG/2.5 ML AMPUL.NEB HHN SCH ×4 (01:33→19:32)
[2017-05-30] MEDS: ALBUTEROL FS 2.5 MG/0.5 ML VIAL.NEB HHN SCH ×4 (01:33→19:32)
[2017-05-30] MEDS ORDERED: GLYTROL 1,000 ML BAG GT PRN (02:00)
[2017-05-30] MEDS: GLYTROL 1,000 ML BAG GT SCH (03:58)
[2017-05-30 04:00] VITALS: BP 111/50
[2017-05-30] MEDS: BLOOD SUGAR DIAGNOSTIC 1 EACH STRIP IN SCH ×4 (06:21→21:18)
[2017-05-30 08:00] VITALS: BP 120/57
[2017-05-30] MEDS ORDERED: FEE PK DOSING 1 MIN EA MC ONE (08:21)
[2017-05-30 08:28] LABS: BASOPHILS % (AUTO) 0.2 % (0.0-2.0); EOSINOPHILS # (AUTO) 0.1 /CMM (0.0-0.7); EOSINOPHILS % (AUTO) 0.6 % (0.0-6.0); HEMATOCRIT 30 % (39-51); HEMOGLOBIN 10.1 g/dL (13.5-17.5); LYMPHOCYTES # (AUTO) 1.2 /CMM (0.8-4.8); LYMPHOCYTES % (AUTO) 12.1 % (20.0-44.0); MEAN CORPUSCULAR HEMOGLOBIN 30 PG (26.0-33.0); MEAN CORPUSCULAR HGB CONC 34 g/dl (31.0-36.0); MEAN CORPUSCULAR VOLUME 89 fL (80-96); MONOCYTES # (AUTO) 0.7 /CMM (0.1-1.30); MONOCYTES % (AUTO) 7.1 % (2.0-12.0); NEUTROPHILS # (AUTO) 7.9 /CMM (1.8-8.9); PLATELET COUNT (AUTO) 348 /CMM (150-450); RDW COEFFICIENT OF VARIATION 15.6 (11.5-15.0); WHITE BLOOD COUNT (AUTO) 9.8 K/uL (4.3-11.0)
[2017-05-30 08:34] LABS: ALANINE AMINOTRANSFERASE 30 U/L (12-78); ALBUMIN 2.9 g/dL (3.4-5.0); ALKALINE PHOSPHATASE 72 U/L (46-116); ASPARTATE AMINOTRANSFERASE 16 U/L (15-37); B-TYPE NATRIURETIC PEPTIDE 398 PG/ML (0-125); BILIRUBIN,TOTAL 0.6 mg/dL (0.2-1.0); CALCIUM, SERUM 9.3 mg/dL (8.5-10.1); CARBON DIOXIDE 33 mmol/L (21-32); CHLORIDE 98 mmol/L (98-107); CREATININE 0.7 mg/dL (0.6-1.3); GLUCOSE 111 mg/dL (74-106); PHOSPHORUS 3.6 mg/dL (2.5-4.9); POTASSIUM 4.8 mmol/L (3.5-5.1); SODIUM SERUM 137 mmol/L (136-145); TOTAL PROTEIN, SERUM 7.5 g/dL (6.4-8.2); UREA NITROGEN, BLOOD 27 mg/dL (7-18)
[2017-05-30 08:38] LABS: CHOLESTEROL 82 mg/dL (<200); LDL 45 mg/dL (0-99); THYROID STIMULATING HORMONE 0.891 uIU/mL (0.358-3.74); TRIGLYCERIDES 63 mg/dL (30-150)
[2017-05-30] MEDS: ASPIRIN 81 MG TAB.CHEW PO SCH (09:26)
[2017-05-30] MEDS: DOCUSATE SODIUM LIQ 100 MG/10 ML UDC GT SCH ×2 (09:29→16:51)
[2017-05-30] MEDS: FUROSEMIDE 20 MG/2 ML VIAL IV SCH (09:29)
[2017-05-30] MEDS: HYDROCODONE/APAP 5/325MG 1 EACH TABLET GT SCH ×2 (09:29→21:16)
[2017-05-30] MEDS: FERROUS SULFATE UDC 300 MG/5 ML UDC GT SCH (09:35)
[2017-05-30 09:58] LABS: IRON, SERUM 17 ug/dl (50-175); TOTAL IRON BINDING CAPACITY 197 ug/dl (250-450)
[2017-05-30] MEDS: FAMOTIDINE (20 MG) 20 MG TABLET GT SCH (11:38)
[2017-05-30] MEDS: INSULIN REGULAR, HUMAN 100 UNIT/ML 3 ML VIAL SQ PRN ×2 (12:05→18:47)
[2017-05-30 12:06] LABS: HDL CHOLESTEROL < 10 mg/dL (40-60)
[2017-05-30] MEDS: VANCOMYCIN 1 GM in IV D5W 250 ML IV SCH (14:15)
[2017-05-30 16:00] VITALS: BP 123/50
[2017-05-30 20:00] VITALS: BP 118/57
[2017-05-30] MEDS: INSULIN GLARGINE, 100 UNIT/ML CARTRIDGE SQ SCH (21:14)
[2017-05-30] MEDS: MONTELUKAST SODIUM (10MG) 10 MG TABLET GT SCH (21:16)
[2017-05-30] MEDS: FINASTERIDE (5 MG) 5 MG TABLET GT SCH (21:16)
[2017-05-30] MEDS: TAMSULOSIN 0.4 MG CAP.SR.24H GT SCH (21:16)
[2017-05-31] MEDS: VANCOMYCIN 1 GM in IV D5W 250 ML IV SCH ×2 (01:07→14:00)
[2017-05-31] MEDS: ALBUTEROL FS 2.5 MG/0.5 ML VIAL.NEB HHN SCH ×4 (02:13→19:41)
[2017-05-31] MEDS: IPRATROPIUM NEB FS 0.5 MG/2.5 ML AMPUL.NEB HHN SCH ×4 (02:13→19:41)
[2017-05-31] MEDS: GLYTROL 1,000 ML BAG GT SCH (03:54)
[2017-05-31] MEDS: BLOOD SUGAR DIAGNOSTIC 1 EACH STRIP IN SCH ×4 (06:39→21:12)
[2017-05-31 08:00] VITALS: BP_SYST 116; BP_DIAS 58; BP_DIAS 85
[2017-05-31 08:05] LABS: BASOPHILS % (AUTO) 0.3 % (0.0-2.0); EOSINOPHILS % (AUTO) 0.3 % (0.0-6.0); HEMATOCRIT 31 % (39-51); HEMOGLOBIN 10.2 g/dL (13.5-17.5); LYMPHOCYTES # (AUTO) 1.2 /CMM (0.8-4.8); LYMPHOCYTES % (AUTO) 13.6 % (20.0-44.0); MEAN CORPUSCULAR HEMOGLOBIN 30 PG (26.0-33.0); MEAN CORPUSCULAR HGB CONC 33 g/dl (31.0-36.0); MEAN CORPUSCULAR VOLUME 89 fL (80-96); MONOCYTES # (AUTO) 0.7 /CMM (0.1-1.30); MONOCYTES % (AUTO) 8.1 % (2.0-12.0); NEUTROPHILS # (AUTO) 6.8 /CMM (1.8-8.9); NEUTROPHILS % (AUTO) 77.7 % (43.0-81.0); PLATELET COUNT (AUTO) 341 /CMM (150-450); RDW COEFFICIENT OF VARIATION 15.8 (11.5-15.0); RED BLOOD CELL COUNT(AUTO) 3.45 MIL/uL (4.5-6.0); WHITE BLOOD COUNT (AUTO) 8.8 K/uL (4.3-11.0)
[2017-05-31 08:09] LABS: CALCIUM, SERUM 9.2 mg/dL (8.5-10.1); CARBON DIOXIDE 33 mmol/L (21-32); CHLORIDE 97 mmol/L (98-107); CREATININE 0.9 mg/dL (0.6-1.3); GLUCOSE 131 mg/dL (74-106); POTASSIUM 4.5 mmol/L (3.5-5.1); SODIUM SERUM 136 mmol/L (136-145); UREA NITROGEN, BLOOD 29 mg/dL (7-18)
[2017-05-31] MEDS: FERROUS SULFATE UDC 300 MG/5 ML UDC GT SCH (08:52)
[2017-05-31] MEDS: HYDROCODONE/APAP 5/325MG 1 EACH TABLET GT SCH ×2 (08:52→21:16)
[2017-05-31] MEDS: ASPIRIN 81 MG TAB.CHEW PO SCH (08:52)
[2017-05-31] MEDS: DOCUSATE SODIUM LIQ 100 MG/10 ML UDC GT SCH ×2 (08:52→17:05)
[2017-05-31] MEDS: FUROSEMIDE 20 MG/2 ML VIAL IV SCH (08:52)
[2017-05-31] MEDS: FAMOTIDINE (20 MG) 20 MG TABLET GT SCH (11:55)
[2017-05-31] MEDS: INSULIN REGULAR, HUMAN 100 UNIT/ML 3 ML VIAL SQ PRN ×2 (12:01→18:03)
[2017-05-31 16:00] VITALS: BP 115/75
[2017-05-31 19:01] LABS: ABG BASE EXCESS 7.3 mmol/L; ABG PCO2 49.4 mmHg (35.0-45.0); ABG PH 7.441 (7.350-7.450); ABG PO2 68.7 mmHg (75.0-100.0); AaDO2 159.7 mmHg; COHb 0.6 % (0.5-1.5); MetHb 0.8 % (0.0-1.5); O2Hb 92.1 % (94.0-97.0); SITE, ABG Right Brachial; VENT MODE, BG COOL AEROSOL 40%
[2017-05-31] MEDS ORDERED: GLYTROL 1,000 ML BAG GT SCH (19:37)
[2017-05-31 20:00] VITALS: BP 144/61
[2017-05-31] MEDS: FINASTERIDE (5 MG) 5 MG TABLET GT SCH (21:15)
[2017-05-31] MEDS: MONTELUKAST SODIUM (10MG) 10 MG TABLET GT SCH (21:15)
[2017-05-31] MEDS: TAMSULOSIN 0.4 MG CAP.SR.24H GT SCH (21:15)
[2017-05-31] MEDS: INSULIN GLARGINE, 100 UNIT/ML CARTRIDGE SQ SCH (21:16)
[2017-06-01] MEDS: ALBUTEROL FS 2.5 MG/0.5 ML VIAL.NEB HHN SCH ×3 (01:26→14:19)
[2017-06-01] MEDS: IPRATROPIUM NEB FS 0.5 MG/2.5 ML AMPUL.NEB HHN SCH ×3 (01:26→14:19)
[2017-06-01] MEDS: VANCOMYCIN 0.75 GM in IV D5W 250 ML IV SCH ×2 (02:47→15:17)
[2017-06-01] MEDS: BLOOD SUGAR DIAGNOSTIC 1 EACH STRIP IN SCH ×2 (06:34→12:33)
[2017-06-01 07:48] LABS: CALCIUM, SERUM 9.2 mg/dL (8.5-10.1); CARBON DIOXIDE 34 mmol/L (21-32); CHLORIDE 98 mmol/L (98-107); CREATININE 0.9 mg/dL (0.6-1.3); GLUCOSE 106 mg/dL (74-106); POTASSIUM 4.7 mmol/L (3.5-5.1); SODIUM SERUM 138 mmol/L (136-145); UREA NITROGEN, BLOOD 36 mg/dL (7-18)
[2017-06-01 08:00] VITALS: BP 136/88
[2017-06-01] MEDS ORDERED: PROSOURCE / PROSTAT (PYXIS) 30 ML UDC GT SCH (09:00)
[2017-06-01] MEDS ORDERED: MUPIROCIN OINT 2% 22 GM TUBE TP SCH (09:30)
[2017-06-01] MEDS: DOCUSATE SODIUM LIQ 100 MG/10 ML UDC GT SCH (09:48)
[2017-06-01] MEDS: ASPIRIN 81 MG TAB.CHEW PO SCH (09:48)
[2017-06-01] MEDS: FUROSEMIDE 20 MG/2 ML VIAL IV SCH (09:48)
[2017-06-01] MEDS: HYDROCODONE/APAP 5/325MG 1 EACH TABLET GT SCH (09:49)
[2017-06-01] MEDS: FERROUS SULFATE UDC 300 MG/5 ML UDC GT SCH (10:48)
[2017-06-01] MEDS: FAMOTIDINE (20 MG) 20 MG TABLET GT SCH (11:17)
[2017-06-01] MEDS: INSULIN REGULAR, HUMAN 100 UNIT/ML 3 ML VIAL SQ PRN (12:36)
[2017-06-01] MEDS ORDERED: Z GUARD REMEDY 4 OZ OINT TP PRN (13:30)
[2017-06-01 16:00] VITALS: BP 113/59
== END 2017-06-01 16:45 | DRG 393 ==
LOC: ER 16:52 → TELE 19:38 → MED 05-30 09:37
PROVIDERS: ADMIT Internal Medicine; ATTEND Internal Medicine
DX: K94.22 Gastrostomy infection (principal); E43 Unspecified severe protein-calorie malnutrition; J69.0 Pneumonitis due to inhalation of food and vomit; G92 Toxic encephalopathy; J96.12 Chronic respiratory failure with hypercapnia; R53.2 Functional quadriplegia; D68.59 Other primary thrombophilia; E11.22 Type 2 diabetes mellitus with diabetic chronic kidney disease; E11.65 Type 2 diabetes mellitus with hyperglycemia; L03.311 Cellulitis of abdominal wall; N39.0 Urinary tract infection, site not specified; E87.1 Hypo-osmolality and hyponatremia; L03.114 Cellulitis of left upper limb; J44.1 Chronic obstructive pulmonary disease with (acute) exacerbation; S42.442 Displaced fracture (avulsion) of medial epicondyle of left humerus; E87.5 Hyperkalemia; Y83.3 Surgical operation with formation of external stoma as the cause of abnormal reaction of the patient, or of later complication, without mention of misadventure at the time of the procedure; Y92.009 Unspecified place in unspecified non-institutional (private) residence as the place of occurrence of the external cause; Y82.9 Unspecified medical devices associated with adverse incidents; Z87.891 Personal history of nicotine dependence; Z86.73 Personal history of transient ischemic attack (TIA), and cerebral infarction without residual deficits; Z79.82 Long term (current) use of aspirin; Z74.01 Bed confinement status; N40.0 Benign prostatic hyperplasia without lower urinary tract symptoms; M81.0 Age-related osteoporosis without current pathological fracture; K21.9 Gastro-esophageal reflux disease without esophagitis; M48.00 Spinal stenosis, site unspecified; Z88.1 Allergy status to other antibiotic agents; Z79.899 Other long term (current) drug therapy; Z79.4 Long term (current) use of insulin; M77.9 Enthesopathy, unspecified; I25.10 Atherosclerotic heart disease of native coronary artery without angina pectoris; Z87.310 Personal history of (healed) osteoporosis fracture; E86.0 Dehydration; F09 Unspecified mental disorder due to known physiological condition; D50.9 Iron deficiency anemia, unspecified; G89.29 Other chronic pain; I12.9 Hypertensive chronic kidney disease with stage 1 through stage 4 chronic kidney disease, or unspecified chronic kidney disease; N18.9 Chronic kidney disease, unspecified; W19.XXXD Unspecified fall, subsequent encounter
CPT/HCPCS: 31720; 36415; 36600; 71045-TC; 73080-TC; 73090-TC; 73110; 80048-TC; 80053-TC; 80061-TC; 80076-TC; 80202-TC; 82962-TC; 83540-TC; 83735-TC; 83880; 84100-TC; 84443-TC; 84484-TC; 85025-TC; 85730-TC; 87081-TC; 93307-TC; 93971-TC; 94640-TC; 94664-TC; 94760-TC; 94762-TC; 94799-TC; A4216; A4606; A4623; A7526; J1815; J1940; J1956; J3370; J7040; J7050; J7060; Z7610

== ENCOUNTER 2019-06-29 20:27 | Inpatient (IN) | payer MEDICARE, OTHER ==
[~2019-06-29] VITALS: Ht 172.7 cm; Wt 86.2 kg
[~2019-06-29 20:27] MED LIST changes: -AMOX500C2 GT; +ASPI-1169 GT; -BACL10TA GT; -BENZ1LOZ58 MM; +BISA10SU11 RC; -BISA10SU8 RC; -BLOO-668 IN; +EPOE1VIA6 SQ; +FINA5TAB11 GT; -FLUO15GE TP; -FOLI1TAB16 GT; -FURO-145 GT; +HYDR-4384 PO; -LACT-96 GT; +NUT.237L30 GT; -SACC250C GT; -SCOP1PAT TD
[2019-06-29] MEDS ORDERED: IV NS 0.9% 500 ML BAG IV ONE (21:00)
--- NOTE | 2019-06-29 21:14 | NUR ---
PRIETO FROM [facility] C/O FEVER. PER REPORT "HIGH SUSPICION FOR VIRAL INFECTION". PT HAS TRACH IN PLACE AND VENT DEPENDENT. CONSTANTLY PRODUCES FOAMY SPUTUM AND SPITS IT OUT. ALL FOUR EXTREMITIES SLIGHTLY CONTRACTED. SKIN WARM, DRY, INTACT. NO ACUTE DISTRESS NOTED. CONTACT/DROPLET PRECAUTIONS IN PLACE. SEEN BY DR HARDY. AWAITING ORDERS
[2019-06-29 22:00] LABS: BASOPHILS % (AUTO) 0.3 % (0.0-2.0); EOSINOPHILS % (AUTO) 0.1 % (0.0-6.0); HEMATOCRIT 32 % (39-51); HEMOGLOBIN 10.5 g/dL (13.5-17.5); LYMPHOCYTES # (AUTO) 1.8 /CMM (0.8-4.8); LYMPHOCYTES % (AUTO) 12.7 % (20.0-44.0); MEAN CORPUSCULAR HGB CONC 33 g/dl (31.0-36.0); MEAN CORPUSCULAR VOLUME 92 fL (80-96); MONOCYTES # (AUTO) 1.2 /CMM (0.1-1.30); MONOCYTES % (AUTO) 8.3 % (2.0-12.0); NEUTROPHILS # (AUTO) 11.2 /CMM (1.8-8.9); NEUTROPHILS % (AUTO) 78.6 % (43.0-81.0); PLATELET COUNT (AUTO) 193 /CMM (150-450); RED BLOOD CELL COUNT(AUTO) 3.47 MIL/uL (4.5-6.0); WHITE BLOOD COUNT (AUTO) 14.3 K/uL (4.3-11.0)
[2019-06-29 22:06] LABS: CALCIUM, SERUM 9.4 mg/dL (8.5-10.1); CARBON DIOXIDE 29 mmol/L (21-32); CHLORIDE 98 mmol/L (98-107); CREATININE 1.2 mg/dL (0.6-1.3); GLUCOSE 140 mg/dL (74-106); POTASSIUM 4.6 mmol/L (3.5-5.1); SODIUM SERUM 134 mmol/L (136-145); UREA NITROGEN, BLOOD 70 mg/dL (7-18)
--- NOTE | 2019-06-29 22:20 | NUR ---
RT pt received in er. placed on settings from facility. trached with portex 7. vent plugged in to red outlet. ambu bag at bedside. hob at 30 degrees. suctioned moderate thick, yellow secretions via inline. awaiting md orders. will continue to monitor
[2019-06-29 22:22] LABS: ALANINE AMINOTRANSFERASE 24 U/L (12-78); ALBUMIN 3.4 g/dL (3.4-5.0); ALKALINE PHOSPHATASE 112 U/L (46-116); ASPARTATE AMINOTRANSFERASE 23 U/L (15-37); B-TYPE NATRIURETIC PEPTIDE 890 PG/ML (0-125); BILIRUBIN,DIRECT 0.2 mg/dL (0.0-0.2); BILIRUBIN,TOTAL 0.8 mg/dL (0.2-1.0); TOTAL PROTEIN, SERUM 8.6 g/dL (6.4-8.2)
[2019-06-29 22:41] LABS: APPEARANCE,URINE CLOUDY (CLEAR)
[2019-06-29 22:43] LABS: BLOOD, URINE 2+ Ery/uL (NEGATIVE); PROTEIN,URINE 2+ mg/dl (NEGATIVE); UGLUCOSE NEGATIVE (NEGATIVE)
[2019-06-29 22:44] LABS: BILIRUBIN,URINE NEGATIVE (NEGATIVE); KETONES,URINE NEGATIVE (NEGATIVE); LEUKOCYTE ESTERASE ,URINE 3+ (NEGATIVE); NITRITE, URINE POSITIVE (NEGATIVE); UROBILINOGEN,URINE 0.2 EU/dL (0.2)
[2019-06-29 22:48] LABS: BACTERIA,URINE Many /HPF (None Seen)
[2019-06-29 22:49] LABS: SQUAMOUS EPITHELIAL CELL,UR Few /HPF (None Seen); WBC,URINE TOO NUMEROUS TO COUN /HPF (0-3)
--- NOTE | 2019-06-29 22:52 | NUR ---
PT RESTING COMFORTABLY IN BED. NO ACUTE DISTRESS NOTED. VSS. WILL CONT TO MONITOR.
[2019-06-29] MEDS ORDERED: VANCOMYCIN 1 GM in IV D5W 250 ML IV ONE (23:00)
[2019-06-29] MEDS ORDERED: PIPERACILLIN /TAZOBACTAM 3.375 G in IV D5W 50 ML IV ONE (23:00)
[2019-06-29] MEDS ORDERED: TRAM50TA2 GT (23:05)
[2019-06-29] MEDS ORDERED: GLYC2TAB21 GT (23:05)
[2019-06-29] MEDS ORDERED: SENN-168 GT (23:05)
[2019-06-29] MEDS ORDERED: BACL10TA GT (23:05)
[2019-06-29] MEDS ORDERED: ATOR20TA GT (23:05)
[2019-06-29] MEDS ORDERED: METO25TA6 GT (23:05)
[2019-06-29] MEDS ORDERED: NUTR1PAC14 GT (23:05)
[2019-06-29] MEDS ORDERED: SIME80TA15 GT (23:05)
[2019-06-29] MEDS ORDERED: INSU100V27 SQ (23:05)
--- NOTE | 2019-06-29 23:06 | NUR ---
RECIEVED BED 101
--- NOTE | 2019-06-29 23:12 | NUR ---
SPOKE WITH GARLAND FROM PUBLIC HEALTH DEPARTMENT AND INFORMED PATIENT WILL BE ADMITTED. THEY WILL FOLLOW UP REGARDING COVID TESTING
--- NOTE | 2019-06-29 23:38 | NUR ---
report given to rn bandar for rufina 101
[2019-06-29] MEDS ORDERED: PIPERACILLIN /TAZOBACTAM 3.375 G VIAL IV ONE (23:40)
[2019-06-29] MEDS ORDERED: VANCOMYCIN 1 GM VIAL ONE (23:40)
--- NOTE | 2019-06-30 00:23 | NUR ---
[facility]
[2019-06-30] MEDS ORDERED: Z GUARD REMEDY 2 OZ OINT TP PRN (00:30)
[2019-06-30] MEDS ORDERED: MAG HYDROX/AL HYDROX/SIMETH 30 ML UDC PO PRN (00:30)
[2019-06-30] MEDS ORDERED: ONDANSETRON HCL/PF 4 MG/2 ML VIAL IVP PRN (00:30)
[2019-06-30] MEDS ORDERED: DEXTROSE 50%-WATER 50 ML DISP.SYRIN IV PRN (00:30)
[2019-06-30] MEDS ORDERED: MAGNESIUM HYDROXIDE 30 ML UDC PO PRN (00:30)
[2019-06-30 00:38] VITALS: BP 117/53
--- NOTE | 2019-06-30 00:58 | NUR ---
SPOKE WITH DR. ANDRE FROM [facility] HEALTH DEPARTMENT. PER DR. ANDRE, PT SHOULD BE TESTED FOR COVID. COLLECT SPECIMEN AND SEND IT TO OUTSIDE LAB. DR. ZHANG MADE AWARE.
--- NOTE | 2019-06-30 01:05 | NUR ---
PER [facility] LAB DEPARTMENT, UNABLE TO COLLECT SPECIMEN AND SEND TO OUTSIDE LAB FOR COVID TESTING. CALLED DEPARTMENT OF PUBLIC HEALTH TO INFORM NO KITS AVAILABLE. WILL CALL BACK WITH MORE INFORMATION
--- NOTE | 2019-06-30 01:20 | NUR ---
SPOKE WITH DR. ANDRE FROM DEPARTMENT OF PUBLIC HEALTH. INFORMED BY DR. ANDRE TO COLLECT SPECIMEN AND FORMS ON THE DEPARTMENT OF PUBLIC HEALTH [facility] AND SOMEONE FROM THE DEPARTMENT WILL OIL PRODUCER SPECIMEN IN THE MORNING. INOCENCIO CHARGE NURSE MADE AWARE.
[2019-06-30] MEDS: IV NS 0.9% 1,000 ML IV PRN ×2 (01:24→18:56)
[2019-06-30] MEDS: JEVITY 1.2 CAL 1,000 ML BOTTLE GT PRN (02:34)
--- NOTE | 2019-06-30 03:00 | NUR ---
SPOKE WITH DR. ANDRE FROM DEPARTMENT OF PUBLIC HEALTH AND INFORMED [facility] DOES NOT HAVE PROPER SWABS/TRANSPORTATION VIAL FOR SPECIMEN COLLECTION. PER DR. ANDRE, WILL FOLLOW UP IN THE MORNING.
[2019-06-30 04:00] VITALS: BP 136/65
[2019-06-30] MEDS: ACETAMINOPHEN 325 MG TABLET PO PRN (04:26)
[2019-06-30] MEDS ORDERED: PIPERACILLIN /TAZOBACTAM 3.375 G VIAL IV ONE (05:21)
--- NOTE | 2019-06-30 05:26 | NUR ---
RN NOTE @0426 ADMINISTERED ACETAMINOPHEN 325MG 2 TABS VIA GT FOR TEMP 102.7 AXILLARY. COOLING MEASURES ALSO APPLIED. @0581 NOTED WITH IMPROVEMENT IN TEMP 99.7 AXILLARY.
[2019-06-30] MEDS ORDERED: PIPERACILLIN /TAZOBACTAM 3.375 G in IV NS 0.9% 50 ML IV ONE (06:00)
[2019-06-30] MEDS: BLOOD SUGAR DIAGNOSTIC 1 EACH STRIP VI SCH ×4 (07:30→23:36)
--- NOTE | 2019-06-30 07:40 | NUR ---
RN NOTE RECEIVED CALL FROM DR. CHRISTINA GARZA [phone] FROM [facility]. PER MD. HOSPITAL IS SUPPOSED TO PROVIDE VIRAL KIT SWAB FOR CORONAVIRUS TESTING. NOTIFIED LAB WHO STATES THAT TESTING CANNOT BE DONE HERE AT [facility] PER MILITARY AIRCRAFT DESIGNER AND THAT [facility] MUST PROVIDE TESTING KIT. ENDORSED TO MORNING SHIFT TO FOLLOW UP.
--- NOTE | 2019-06-30 07:40 | NUR ---
rn opening note: Patient on negative room air room. On contact and droplet precautions. Precautions strictly observed. Received patient in bed. Awake, alert and oriented x2. Patient is non-verbal but responds with yes or no questions by nodding and making noises. No pain reported. No SOB noted and patient is not on respiratory distress. On Mechanical Ventilation and tolerating it well. IV sites clean, dry, patent and intact. call light in reach. Side rails up x3. Bed locked, low and at semi-spaulding's position. safety ensured and observed. will continue to monitor. Will f/u endorsed information by Night Nurse regarding obtaining and doing testing to R/O Covid-19.
[2019-06-30 08:00] VITALS: BP 122/62
--- NOTE | 2019-06-30 09:13 | NUR ---
rn note: spoke to JUWAN Sin coordinator regarding patient's current situation. Read back disposition note from Dr. Meza's admission note. She acknowledged information. I asked whether there is a need to follow-up with CDC about the testing to be done to the patient and was informed that it need not be and that they were already informed by the ER staff upon admission. ID and MD will be the ones to communicate with the CDC regarding matter. Strict infection control measures to be followed were reiterated.
[2019-06-30 12:00] VITALS: BP_SYST 122; BP_SYST 123; BP_DIAS 52
[2019-06-30] MEDS: PIPERACILLIN /TAZOBACTAM 3.375 G in IV D5W 100 ML IV SCH ×2 (12:28→21:00)
[2019-06-30] MEDS: *INSULIN REGULAR(HUMULIN R)HUM 100 UNIT/ML VIAL SQ PRN (12:29)
[2019-06-30 16:00] VITALS: BP 112/56
--- NOTE | 2019-06-30 16:16 | NUR ---
rn note: JUWAN Sin called back and asked for update regarding patient. Informed her that no one from the CDC came and did the swab for the patient. Informed her that Dr. Estrada is the attending and that Dr. crow is covering for him today. Dr. crow is aware of the situation.
[2019-06-30] MEDS: INSULIN REGULAR, HUMAN 100 UNIT/ML 3 ML VIAL SQ PRN ×2 (18:33→23:36)
--- NOTE | 2019-06-30 19:50 | NUR ---
rn closing note: Patient still on negative room air room. On contact and droplet precautions. Precautions strictly observed. He is in bed. Awake, alert and oriented x2. Tele monitoring showing Sinus Tachycardia. Patient is non-verbal but responds with yes or no questions by nodding and making noises. No pain reported. No SOB noted and patient is not on respiratory distress. On Mechanical Ventilation and tolerating it well. IV sites clean, dry, patent and intact. call light in reach. Side rails up x3. Bed locked, low and at semi-spaulding's position. safety ensured and observed. No testing to R/O Covid-19 was done. January is aware that no CDC staff came for testing. Patient medications not yet reconciled. Dr. Dowell is aware of the situation. Endorsed to oncoming shift for ELEANOR.
[2019-06-30 20:00] VITALS: BP 127/69
[2019-07-01] VITALS: BP 123/59
[2019-07-01 04:00] VITALS: BP 127/82
--- NOTE | 2019-07-01 05:30 | NUR ---
PATIENT RECEIVED ON VENT SUPPORT WITH A SHILEY XLT 8 TRACH TUBE AND SETTINGS OF AC 16, 500 VT, 40%, +5. SUCTIONED FOR MINIMAL, THIN, WHITE, FROTHY SECRETIONS. AMBU BAG AT BEDSIDE. VENT AND PULSE OXIMETER ALARMS AUDIBLE AND VISIBLE. VENT PLUGGED INTO RED OUTLET. Addendum: 07/01/19 at 0532 by HARIS HIGH RT Amended: Links added.
[2019-07-01] MEDS: PIPERACILLIN /TAZOBACTAM 3.375 G in IV D5W 100 ML IV SCH ×3 (06:28→20:37)
[2019-07-01] MEDS: JEVITY 1.2 CAL 1,000 ML BOTTLE GT PRN ×2 (06:30→14:30)
[2019-07-01] MEDS: IV NS 0.9% 1,000 ML IV PRN ×2 (06:33→18:52)
[2019-07-01 08:00] VITALS: BP 109/49
[2019-07-01] MEDS: INSULIN REGULAR, HUMAN 100 UNIT/ML 3 ML VIAL SQ PRN ×3 (08:05→18:18)
[2019-07-01] MEDS: BLOOD SUGAR DIAGNOSTIC 1 EACH STRIP VI SCH ×4 (08:05→22:51)
[2019-07-01 10:24] LABS: CREATININE 0.7 mg/dL (0.6-1.3); MAGNESIUM 1.4 mg/dL (1.8-2.4); PHOSPHORUS 1.9 mg/dL (2.5-4.9); POTASSIUM 2.9 mmol/L (3.5-5.1)
[2019-07-01 12:00] VITALS: BP 135/60
[2019-07-01] MEDS ORDERED: NEUTRA PHOS 1 POWD.PACKET GT ONE (12:00)
[2019-07-01 16:00] VITALS: BP 136/67
--- NOTE | 2019-07-01 19:12 | NUR ---
Handoff with night team registered nurse. Олег Mo RN
--- NOTE | 2019-07-01 19:25 | NUR ---
RN OPENING NOTE PATIENT RECEIVED ON VENT SUPPORT, PT IN NO RESPIRATORY DISTRESS BREATHING EVEN AND UNLABORED, JEVITY 1.2 RUNNING AT 70 ML/HE, IVF NS TO LEFT HAND RUNNING AT 75 ML/HR SIDE RAIL UP X 2 AMBU BAG AT BEDSIDE. VENT AND PULSE OXIMETER ALARMS AUDIBLE AND VISIBLE.WILL CONTINUE TO MONITOR PT.
[2019-07-01 20:00] VITALS: BP_SYST 136; BP_SYST 138; BP_DIAS 60; BP_DIAS 67
[2019-07-01] MEDS: *INSULIN REGULAR(HUMULIN R)HUM 100 UNIT/ML VIAL SQ PRN (23:34)
[2019-07-02] VITALS: BP 141/72
[2019-07-02 04:00] VITALS: BP 158/75
[2019-07-02] MEDS: PIPERACILLIN /TAZOBACTAM 3.375 G in IV D5W 100 ML IV SCH ×3 (05:12→21:14)
[2019-07-02] MEDS: JEVITY 1.2 CAL 1,000 ML BOTTLE GT PRN ×2 (05:34→21:15)
--- NOTE | 2019-07-02 07:07 | NUR ---
RN CLOSING NOTE PATIENT AWAKE ON VENT SUPPORT, PT IN NO RESPIRATORY DISTRESS BREATHING EVEN AND UNLABORED, JEVITY 1.2 RUNNING AT 70 ML/HE, IVF NS TO LEFT HAND RUNNING AT 75 ML/HR SIDE RAIL UP X 2 AMBU BAG AT BEDSIDE, PT TURNED AND REPOSITIONED Q 2 HRS, WILL ENDORSE TO AM NURSE FOR ELEANOR.
[2019-07-02] MEDS: BLOOD SUGAR DIAGNOSTIC 1 EACH STRIP VI SCH ×4 (07:30→22:21)
--- NOTE | 2019-07-02 07:30 | NUR ---
RN OPENING NOTE RECEIVED PT AWAKE IN BED NO SIGNS OF DISTRESS. ON TRACH AND VENT. TRIES TO COMMUNICATE BY POINTING WITH LIPS. NOTED WITH GT. PATENT AND FEEDING RUNNING. BOWEL SOUNDS PRESENT. TELE READING SR. IV LINE ON R HAND AND L HAND INTACT AND PATENT. NO SIGNS OF INFILTRATION. NOTED WITH FEVER OF 103.0 F. WILL GIVE ORDERED ANTIPYRETIC. CONTINUES ON IV HYDRATION AND ANTIBIOTICS. SAFETY MEASURES IMPLEMENTED. BED ON LOCKED AND LOWEST POSITION. CALL LIGHT WITHIN REACH. WILL CONTINUE TO MONITOR. Addendum: 07/02/19 at 1315 by TERRA PATRICIO RN CORRECTION: FEVER CORRECT TEMP IS 100.2. COOLING MEASURES APPLIED. ADDENDUM: PATIENT STILL FOR TESTING FOR COVID 19. WILL CALL DR. CHRISTINA [facility] [phone]
--- NOTE | 2019-07-02 07:50 | NUR ---
RT PATIENT REC'D TRACHED ON [facility] WITH ORDERED SETTINGS NALLELY WELL. VENT ALARMS CHECKED + AUDIBLE. AIRWAY PATENT AND SECURE. AIRWAY SUCTIONED. AMBU BAG AT HOB Addendum: 07/02/19 at 1817 by TREVIN GIMENEZ RT Amended: Links added.
[2019-07-02 08:00] VITALS: BP_SYST 150; BP_SYST 156; BP_DIAS 75
--- NOTE | 2019-07-02 08:00 | NUR ---
ALBERTA NOTE NOT ABLE TO GIVE REGULAR INSULIN AT 730AM. ORDERED FROM PHARMACY. Addendum: 07/02/19 at 1316 by TERRA PATRICIO RN ADDENDUM: DRUG NOT AVAILABLE. CALLED IN TWICE TO PHARMACY
--- NOTE | 2019-07-02 08:15 | NUR ---
RN NOTES PLACED A CALL TO DR. CHRISTINA PATIÑO [facility] FOR PATIENT NEEDED TO BE TESTED FOR COVID 19. NO ANSWER. LEFT A MESSAGE.
[2019-07-02 08:48] LABS: BASOPHILS % (AUTO) 0.3 % (0.0-2.0); EOSINOPHILS % (AUTO) 0.7 % (0.0-6.0); HEMATOCRIT 28 % (39-51); HEMOGLOBIN 9.2 g/dL (13.5-17.5); LYMPHOCYTES # (AUTO) 0.9 /CMM (0.8-4.8); LYMPHOCYTES % (AUTO) 11.4 % (20.0-44.0); MEAN CORPUSCULAR HGB CONC 33 g/dl (31.0-36.0); MEAN CORPUSCULAR VOLUME 94 fL (80-96); MONOCYTES # (AUTO) 0.8 /CMM (0.1-1.30); MONOCYTES % (AUTO) 9.9 % (2.0-12.0); NEUTROPHILS % (AUTO) 77.7 % (43.0-81.0); PLATELET COUNT (AUTO) 173 /CMM (150-450); RED BLOOD CELL COUNT(AUTO) 2.98 MIL/uL (4.5-6.0); WHITE BLOOD COUNT (AUTO) 7.7 K/uL (4.3-11.0)
[2019-07-02 08:56] LABS: CALCIUM, SERUM 8.5 mg/dL (8.5-10.1); POTASSIUM 4.3 mmol/L (3.5-5.1)
[2019-07-02 09:21] LABS: PHOSPHORUS 2.7 mg/dL (2.5-4.9)
[2019-07-02] MEDS: ACETAMINOPHEN 325 MG TABLET PO PRN ×3 (09:44→22:44)
[2019-07-02 09:46] LABS: ALBUMIN 2.7 g/dL (3.4-5.0); BILIRUBIN,TOTAL 0.4 mg/dL (0.2-1.0); MAGNESIUM 2.2 mg/dL (1.8-2.4); PHOSPHORUS 2.7 mg/dL (2.5-4.9); POTASSIUM 4.3 mmol/L (3.5-5.1); TOTAL PROTEIN, SERUM 7.6 g/dL (6.4-8.2)
[2019-07-02] MEDS: IV NS 0.9% 1,000 ML IV PRN ×2 (11:46→22:45)
--- NOTE | 2019-07-02 11:48 | NUR ---
RN NOTES FOLLOW UP CALL TO DR. CHRISTINA PATIÑO, [facility] FOR PATIENT NEEDED TO BE TESTED FOR COVID 19. NO ANSWER. LEFT A MESSAGE Addendum: 07/02/19 at 1151 by STEPHAN VILLA RN ADDENDUM: JERSON INFECTION CONTROL AWARE.
[2019-07-02 12:00] VITALS: BP 157/73
--- NOTE | 2019-07-02 12:00 | NUR ---
RN NOTE BS 308 REGULAR INSULIN ADMNISTERED WAS 12 UNITS NOT 9 UNITS.
[2019-07-02] MEDS: INSULIN REGULAR, HUMAN 100 UNIT/ML 3 ML VIAL SQ PRN ×2 (12:20→18:37)
--- NOTE | 2019-07-02 13:18 | NUR ---
RN NOTES PLACED A CALL AT [facility] [phone]. SPOKE WITH NOBLE. WILL HAVE A DOCTOR CALL WITHIN 10 MINUTES.
--- NOTE | 2019-07-02 13:34 | NUR ---
RN NOTES SPOKE WITH BEST FROM [facility] [phone]. RELAYED HISTORY OF PATIENT, THAT PATIENT RESIDES FROM [facility]. CHEST XRAY RESULT RELAYED AND THAT [facility] WAS CONTACTED BY ER STAFF ON 06/29/19 FOR A TEST KIT, HOWEVER, NO TEST WAS DONE. SHE SAID SHE WILL CALL BACK TO FOLLOW UP IF THE PATIENT WAS ALREADY REPORTED PRIOR.
--- NOTE | 2019-07-02 15:42 | NUR ---
RN NOTES SPOKE WITH BEST FROM [facility], ASKED FOR SOME INFORMATION ABOUT PATIENT. DR. MARY GILLIAM'S PHONE NUMBER GIVEN. PER BEST, THEY WILL CONTACT PT'S PCP- DR. GILLIAM. THEN A DOCTOR FROM [facility], PROBABLY DR. CHRISTINA PATIÑO WILL GIVE US A CALL FOR FURTHER INSTRUCTIONS. CHARGE NURSE SOON, LETITIA INFECTION CRYPTOLOGIST AND BECCA PAINTER ICU DIRECTOR NOTIFIED.
[2019-07-02 16:00] VITALS: BP_SYST 157; BP_SYST 163; BP_DIAS 71; BP_DIAS 73
--- NOTE | 2019-07-02 18:54 | NUR ---
RN CLOSING NOTE PT IS AWAKE APPEARS CALM AND RELAXED. NO FEVER AT THIS TIME. ON VENT AND GT FEEDING. R HAND AND LEFT HAND IV LINE INTACT. GT FEEDING RUNNING. TOLERATING WELL. NO CHANGE OF CONDITION AT THIS. SUCTION NEEDED THROUGHOUT THE SHIFT. ALL NEEDS MET. REINFORCED SAFETY MEASURES. WILL ENDORSE TO AUTOMATIC MACHINE ATTENDANT.
--- NOTE | 2019-07-02 19:05 | NUR ---
RN OPENING NOTES RECEIVED PATIENT RESTING IN BED, NONVERBAL, OPENS EYES. ON TELE MONITOR SR-ST WITH HR 90'S-100'S. [facility] ORDERED, NO SOB OR RESPIRATORY DISTRESS NOTED. SATURATING 100% AT THE MOMENT. NOTED WITH YELLOW FROTHY SPUTUM FROM MOUTH, SUCTIONED NEEDED. GTF RUNNING AT 70ML/HR, MINIMAL RESIDUAL NOTED. IV SITES BOTH FLUSHING AND PATENT, SITES C/D/I. ON ISOLATION PRECAUTION, RULE OUT COVID-19; [facility] AWARE AND AWAITING FOR TEST KIT PER AM RN. SAFETY MEASURES IN PLACE; CALL LIGHT WITHIN REACH, SIDE RAILS UP X2, HOB ELEVATED, BED LOCKED AND IN LOW POSITION. WILL CONT TO MONITOR PATIENT CLOSELY.
--- NOTE | 2019-07-02 19:17 | NUR ---
RN CLOSING NOTE ENDORSED TO THE NEXT SHIFT FOR ELEANOR.
[2019-07-02 20:00] VITALS: BP 147/69
--- NOTE | 2019-07-02 20:00 | NUR ---
RN NOTES AT 1930: LAB PERSONNEL, CYRUS GAVE TOWEL ROLLING MACHINE OPERATOR KIT FOR COVID-19 AND STATED "FOLLOW THE INSTRUCTIONS GIVEN HERE AND SEND THIS TO LAB, PLEASE DOUBLE BAG THE CULTURES" AT 1999: CALLED NURSING ERECTING ENGINEER FOR N95 MASK, AWAITING FOR RESPONSE.
--- NOTE | 2019-07-02 20:45 | NUR ---
RN NOTES PATIENT TEMP 99.4 VIA AXILLARY, COOLING MEASURES PLACED, WILL ADMINISTER PRN TYLENOL.
--- NOTE | 2019-07-02 22:00 | NUR ---
RN NOTES AT 2114: RN PAGED RT AND SPOKE TO AD REGARDING HOW TO SWAB/COLLECT VIA OROPHARYNGEAL ON A PATIENT WITH TRACH/MECHANICAL VENT AND STATED "IT'S THE SAME WITH PATIENTS WITH NO TRACH" AT 2199: RN COLLECTED SPECIMEN FOR COVID-19 VIA OROPHARYNGEAL AND NASOPHARYNGEAL USING THE TEST KIT FROM LAB AND FOLLOWING THE INSTRUCTIONS PROVIDED BY [facility]. AT 2214: RN SENT SPECIMEN TO LAB, SPECIMEN TAKEN BY LUCIO, AND STATED "[facility] WILL PICK THIS UP TOMORROW BECAUSE IT IS NOT A STAT ORDER" CHARGE NURSE, SANKET MADE AWARE.
[2019-07-02] MEDS: *INSULIN REGULAR(HUMULIN R)HUM 100 UNIT/ML VIAL SQ PRN (22:49)
[2019-07-03] VITALS (7 sets, daily range): BP systolic 138–162; BP diastolic 68–85
--- NOTE | 2019-07-03 | NUR ---
RN NOTES PATIENT TEMP 99.7, PRN TYLENOL GIVEN AT 2249, COOLING MEASURES KEPT IN PLACE. WILL CONT TO MONITOR CLOSELY.
--- NOTE | 2019-07-03 02:05 | NUR ---
REPORT GIVEN TO ALBERTA OLIVA FOR ELEANOR.
--- NOTE | 2019-07-03 02:10 | NUR ---
RT Pt trach remains on [facility] vent. No resp distress noted. Trach secure and patent. Addendum: 07/03/19 at 0211 by TASNEEM VANG RT Amended: Links added.
--- NOTE | 2019-07-03 04:34 | NUR ---
RN NOTE: REPORT GIVEN TO ALBERTA PRAKASH FOR CONTINUITY OF CARE.
--- NOTE | 2019-07-03 04:35 | NUR ---
RN NOTES RECEIVED ENDORSEMENT FROM ALBERTA OLIVA FOR Pt's ELEANOR.
[2019-07-03] MEDS: PIPERACILLIN /TAZOBACTAM 3.375 G in IV D5W 100 ML IV SCH ×3 (06:02→21:34)
[2019-07-03 06:36] LABS: BASOPHILS % (AUTO) 0.3 % (0.0-2.0); EOSINOPHILS % (AUTO) 1.7 % (0.0-6.0); HEMATOCRIT 29 % (39-51); HEMOGLOBIN 9.5 g/dL (13.5-17.5); LYMPHOCYTES # (AUTO) 1.2 /CMM (0.8-4.8); LYMPHOCYTES % (AUTO) 17.6 % (20.0-44.0); MEAN CORPUSCULAR HGB CONC 33 g/dl (31.0-36.0); MEAN CORPUSCULAR VOLUME 94 fL (80-96); MONOCYTES # (AUTO) 0.6 /CMM (0.1-1.30); MONOCYTES % (AUTO) 9.2 % (2.0-12.0); NEUTROPHILS # (AUTO) 4.8 /CMM (1.8-8.9); NEUTROPHILS % (AUTO) 71.2 % (43.0-81.0); PLATELET COUNT (AUTO) 176 /CMM (150-450); RED BLOOD CELL COUNT(AUTO) 3.09 MIL/uL (4.5-6.0); WHITE BLOOD COUNT (AUTO) 6.7 K/uL (4.3-11.0)
[2019-07-03] MEDS: ACETAMINOPHEN 325 MG TABLET PO PRN (06:40)
[2019-07-03 06:44] LABS: ALBUMIN 2.6 g/dL (3.4-5.0); BILIRUBIN,TOTAL 0.4 mg/dL (0.2-1.0); MAGNESIUM 2.1 mg/dL (1.8-2.4); POTASSIUM 4.6 mmol/L (3.5-5.1); TOTAL PROTEIN, SERUM 7.7 g/dL (6.4-8.2)
--- NOTE | 2019-07-03 08:00 | NUR ---
RN CLOSING NOTES REPORT GIVEN TO INOCENCIO RN MAICO FOR Pt's ELEANOR. Pt IS A/OX0, NONVERBAL, BUT CAN OPEN EYES AND TRACK, Pt SEEMS TO BE ABLE TO NOD HEAD. Pt CAN ALSO CLICK TONGUE TO GET ATTENTION. Pt IS ON [facility] VENT, WITH SETTINGS AT: AC 16, TV 500, FIO2 40%, PEEP 5. PORTEX #7. TELE READING 90 SR O2 100%. NO S/S OF ACUTE DISTRESS OR SOB NOTED DURING THE NIGHT. ALL NEEDS MET AND ATTENDED TO. SAFETY MEASURES IN PLACE.
[2019-07-03] MEDS: BLOOD SUGAR DIAGNOSTIC 1 EACH STRIP VI SCH ×4 (08:49→21:34)
[2019-07-03] MEDS: INSULIN REGULAR, HUMAN 100 UNIT/ML 3 ML VIAL SQ PRN ×4 (08:50→21:55)
--- NOTE | 2019-07-03 09:55 | NUR ---
WOUND CARE CONSULT: PT PRESENTS WITH RT LOWER LEG SCARRING, SACRAL SCARRING WHICH EXTENDS TO BUTTOCKS AND FRAGILE SKIN TO LEFT HEEL, PRESENT ON ADMISSION. RECOMMENDATIONS MADE FOR SKIN PROTECTION. DISCUSSED WITH NURSING STAFF. PT ON LUCILE ISOFLEX LOW AIRLOSS BED. WILL SEE PRN. [place] IN AGREEMENT WITH PLAN OF CARE.
--- NOTE | 2019-07-03 13:28 | NUR ---
PT RCVD TRACH'D ON MECHANICAL VENT WITH CHARTED SETTINGS. SX DONE. PT TRACH IS PATENT AND SECURE. VENT ALARMS ARE ON, SET, AND AUDIBLE. VENT PLUGGED INTO RED OUTLET. AMBU BAG AT BEDSIDE. NO SOB NOTED. Addendum: 07/03/19 at 1328 by MAYDA JOHNSON RT Amended: Links added.
[2019-07-03] MEDS ORDERED: GLUCERNA 1.2 1,000 ML BOTTLE NG PRN (14:00)
[2019-07-03] MEDS ORDERED: GLUCERNA 1.2 1,000 ML BOTTLE GT PRN (14:30)
[2019-07-03] MEDS ORDERED: CEFTRIAXONE 1 G in IV D5W 50 ML IV SCH (14:30)
[2019-07-03] MEDS: GLUCERNA 1.2 1,000 ML BOTTLE NG PRN (19:19)
[2019-07-03] MEDS: IV NS 0.9% 1,000 ML IV PRN (19:19)
--- NOTE | 2019-07-03 19:34 | NUR ---
TELE/RN CLOSING NOTES PATIENT CONTINUES TO REMAIN IN STABLE CONDITION THROUGHOUT THE SHIFT. PROVIDED COMFORT AND SAFETY. PATIENT ABLE TO TOLERATE FEEDING AND MEDS WELL. HOB ELEVATED AT ALL TIMES. BED WAS ALSO SWITCHED TO ISOFLEX PER WOUND CARE NURSE. STILL AWAITING RESULTS FOR COVID-19 AFTER SENDING SPECIMEN. ALL NEEDS ANTICIPATED. CALL LIGHT WITHIN REACHED. BED LOCKED AND IN LOWEST POSITION. WILL CONTINUE TO MONITOR CLOSELY. ENDORSED TO PM NURSE FOR ELEANOR.
--- NOTE | 2019-07-03 19:40 | NUR ---
RN OPENING NOTES RECEIVED PATIENT IN BED, NONVERBAL, OPENS EYES. BREATHING NORMAL NO SOB NOTED. SKIN WARM AND DRY TO TOUCH. ON TELE MONITOR SR-ST WITH HR IN 90'S. ON [facility] VENT SETTINGS ORDERED, NO SOB OR RESPIRATORY DISTRESS NOTED. SATURATING 97% AT THIS TIME. CONTINUES ON GTF RUNNING AT GLUCERNA 1.2 AT 65ML/HR NO RESIDUAL NOTED. HOB ELEVATED. IV SITES BOTH FLUSHING WELL, PATENT AND INTACT. PT REMAINS ON ISOLATION PRECAUTION, SAFETY MEASURES IN PLACE; CALL LIGHT WITHIN REACH, SIDE RAILS UP X2, BED LOCKED AND IN LOW POSITION. WILL CONT TO MONITOR
[2019-07-04] VITALS (7 sets, daily range): BP systolic 136–155; BP diastolic 63–85
[2019-07-04] MEDS: PIPERACILLIN /TAZOBACTAM 3.375 G in IV D5W 100 ML IV SCH ×3 (04:03→21:00)
--- NOTE | 2019-07-04 06:47 | NUR ---
CABLE WEAVER CLOSING NOTE PT IS AWAKE APPEARS CALM AND RELAXED. NO FEVER AT THIS TIME. CONT ON VENT SETTING TOLERATING ORDERED. CONTINUE ON GT FEEDING TOLERATING WELL. R HAND AND LEFT HAND IV LINE INTACT. NO CHANGE OF CONDITION AT THIS. SUCTION NEEDED THROUGHOUT THE SHIFT. CONTINUE ON ISOLATION. TURNING AND REPOSITIONING Q2H ORDERED. KEPT PT CLEAN, DRY, AND COMFORTABLE.SAFETY MEASURES IN PLACE, BED IN LOW AND LOCKED POSITION. WILL ENDORSE TO DAY SHIFT NURSE.
--- NOTE | 2019-07-04 07:30 | NUR ---
WOOD TREATING INSPECTOR NOTES ON TELEMONITORING ST: 108
--- NOTE | 2019-07-04 07:30 | NUR ---
CHIMNEY CONSTRUCTION SUPERVISOR NOTES RECEIVED PATIENT IN BED ALERT AND AWAKE. HOB ELEVATED. NO SOB. ON MECHANICAL VENTILATION ORDERED NALLELY WELL. SUCTIONED PATIENT, OBTAINED THICK YELLOW SECRETION VIA TRACH. LEFT HAND # 20 INTACT AND PATENT INFUSING NS @ 75ML/HR. GT INTACT AND PATENT, NO RESIDUAL NOTED NALLELY FEEDING WELL ORDERED. ON CONTACT PRECAUTIONS OBSERVED AT ALL TIMES. BED IN LOWEST POSITION, LOCKED. BED ALARM ON. CALL LIGHT WITHIN REACH.
[2019-07-04] MEDS: BLOOD SUGAR DIAGNOSTIC 1 EACH STRIP VI SCH ×4 (09:45→21:00)
[2019-07-04] MEDS: IV NS 0.9% 1,000 ML IV PRN (12:21)
[2019-07-04] MEDS: HYDROCODONE/APAP 5/325MG 1 EACH TABLET PO PRN (12:27)
[2019-07-04] MEDS: INSULIN REGULAR, HUMAN 100 UNIT/ML 3 ML VIAL SQ PRN ×2 (12:51→17:26)
--- NOTE | 2019-07-04 19:10 | NUR ---
RN OPENING NOTES: Received pt in bed, A&Ox1, opening eyes, nonverbal. On trach and vent tolerating settings well. No respiratory distress noted. On tele monitor showing SR. On GT feeding of Glucerna 1.2 at 65cc/hr. Tolerating well. Has IV sites on right hand #22 and left hand #20 with NS running at 75cc/hr. Lines patent, flushed and dressings c/d/i. Has woods cath, patent and draining urine. Safety measures in place. Bed in lowest and locked position, side rails up x3, and call light within reach. Will continue to monitor.
--- NOTE | 2019-07-04 19:28 | NUR ---
HYDROELECTRIC MACHINERY MECHANIC NOTES PATIENT RESTING COMFORTABLY IN BED. HOB ELEVATED. NO S/S OF RESPIRATORY DISTRESS. . ON MECHANICAL VENTILATION ORDERED NALLELY WELL AC 16 TV 500 FIO2 4% PEEP 5 SHILEY XLT # 8 INTACT . LEFT HAND # 20 INTACT AND PATENT INFUSING NS @ 75ML/HR. GT INTACT AND PATENT NALLELY FEEDING WELL OF GLUCERNA 1.2 @ 65ML/HR. NO RESIDUAL NOTED. ON CONTACT PRECAUTIONS OBSERVED AT ALL TIMES. BED IN LOWEST POSITION, LOCKED. BED ALARM ON. CALL LIGHT WITHIN REACH. IN NO APPARENT DISTRESS.
--- NOTE | 2019-07-04 20:37 | NUR ---
RT NOTE Pt rec'd trached on [facility] vent on AC mode settings as charted. Pt shows no signs of resp distress or sob. Sx'd for thick mod amt of carranza secretions. Alarms are set and audible. Vent plugged into red outlet. Ambu bag bedside. Will continue to monitor. Addendum: 07/04/19 at 2037 by CHACHO MANCERA RT Amended: Links added.
[2019-07-04] MEDS: ACETAMINOPHEN 325 MG TABLET PO PRN (21:22)
[2019-07-04] MEDS: *INSULIN REGULAR(HUMULIN R)HUM 100 UNIT/ML VIAL SQ PRN (21:29)
--- NOTE | 2019-07-04 21:31 | NUR ---
RN NOTE: Pt noted w/ temp of 102.6. Tylenol given, cooling measures implemented. Will continue to monitor.
[2019-07-05] VITALS (18 sets, daily range): BP systolic 103–160; BP diastolic 48–75
[2019-07-05] MEDS: IV NS 0.9% 1,000 ML IV PRN ×2 (00:02→16:05)
[2019-07-05] MEDS: PIPERACILLIN /TAZOBACTAM 3.375 G in IV D5W 100 ML IV SCH ×3 (04:16→21:02)
[2019-07-05] MEDS: GLUCERNA 1.2 1,000 ML BOTTLE NG PRN ×2 (05:38→23:50)
--- NOTE | 2019-07-05 06:49 | NUR ---
RN CLOSING NOTES: Pt in bed A&Ox1, opens eyes and is nonverbal. On trach and vent tolerating settings well. No respiratory distress noted during shift. Pt on isolation to rule out Covid-19, awaiting results. On tele monitor showing sinus tachy. Tolerating GT feeding of Glucerna 1.2 at 65cc/hr with no residuals noted. Has IV sites on right and left hands, #22 both lines patent and flushed. Dressings c/d/i. Safety measures in place. Bed in lowest and locked position, side rails up x3, call light within reach. Will endorse to AM nurse for ELEANOR.
--- NOTE | 2019-07-05 07:30 | NUR ---
television anchor note received patent in bed with a lot of secretion noted from trach and mouth , patient with trach to vent setting as ordered, saturation was at this time 73% trach and mouth care done suction , keep hob elevated with g tube feeding as ordered g tube changed due to was plugged, , Patient awake alert time 1, ,called rt ,abg done per dr GILLIAM order, Addendum: 07/05/19 at 1845 by HALEY GUEVARA RN 0730 IV HL ON RT HAND IS SWOLLEN WITH BLISTER INTACT , CHANGED IV ON LT HAND
--- NOTE | 2019-07-05 08:00 | NUR ---
telehealth director note on 100% setting by rt ,sat 91% will transfer to icu per dr rivas order ,report given to elsi marion
[2019-07-05] MEDS: INSULIN REGULAR, HUMAN 100 UNIT/ML 3 ML VIAL SQ PRN ×3 (08:51→17:35)
[2019-07-05] MEDS: BLOOD SUGAR DIAGNOSTIC 1 EACH STRIP VI SCH ×2 (08:58→12:00)
--- NOTE | 2019-07-05 09:20 | NUR ---
GENERATOR REPAIRER NOTES RECEIVED REPORT FROM HALEY FOR CONTINUITY OF CARE
--- NOTE | 2019-07-05 09:30 | NUR ---
SHOT LIGHTER NOTES RECEIVED PATIENT OPENS EYES ,TRACKS NON VERBAL , ON MECHANICAL VENT WITH SETTINGS OF AC 22 TV 550 FIO2 100% AND PEEP OF 9 WITH SPO2 OF 98% , ST 102 ON BEDSIDE MONITOR , GT PATENT AND INTACT WITH GLUCERNA @ 65ML/HR WITH NO RESIDUALS NOTED , FC DRAINING VIA GRAVITY , IV OF L HAND # 20 WITH NS @75ML/HR , R HAND # 20 PATENT AND INTACT , ALL NEEDS ATTENDED , BED ON LOW AND LOCKED POSITION , SIDE RAILS X2 ,CALL LIGHT WITHIN REACH , HOB @ 45 , ISOLATION PREC OBSERVED WILL CONTINUE TO MONITOR .
--- NOTE | 2019-07-05 09:40 | NUR ---
rn tele note transferred patient to icu by bed with acls protocol
--- NOTE | 2019-07-05 10:00 | NUR ---
FIRE ALARM OPERATOR NOTES RIGHT HAND # 20 IV INFILTRATED WITH BLISTER , DISCONTINUED LEFT HAND # 20 LEAKING , DISCONTINUED INSERTED IV @ MIKE # 20 AND LEFT WRIST # 22 PATENT AND INTACT , WITH NS @ 75ML/HR
--- NOTE | 2019-07-05 11:00 | NUR ---
PEDIATRIC SURGEON NOTES NOTIFIED DR MILNER REGARDING ABG RESULT , ORDERED TO CHANGE VENT SETTINGS TO AC 16 TV 550 FIO2 TITRATE TO KEEP SPO2 ABOVE 92% , PEEP OF 5 , ORDERS CARRIED OUT , RT EYAD CHANGED VENT SETTINGS
[2019-07-05 11:04] LABS: ABG BASE EXCESS 3.6 mmol/L; ABG OXYGEN SATURATION 99.1 % (92.0-98.5); ABG PCO2 38.1 mmHg (35.0-45.0); ABG PH 7.473 (7.350-7.450); ABG PO2 447.4 mmHg (75.0-100.0); AaDO2 227.5 mmHg; COHb 0.3 % (0.5-1.5); MetHb 0.4 % (0.0-1.5); O2Hb 98.4 % (94.0-97.0); PEEP,BG 8 cm H2O; SITE, ABG Left Brachial; VT, ABG 550 mL
[2019-07-05] MEDS: ACETYLCYSTEINE 10% SOLN 400 MG/4 ML VIAL NEB SCH ×3 (11:30→23:56)
[2019-07-05] MEDS: ALBUTEROL HALF STRENGTH 1.25 MG/3 ML VIAL.NEB NEB SCH ×5 (11:30→23:56)
[2019-07-05] MEDS: methylPREDNISolone SOD SUCC 125 MG/2ML VIAL IV SCH ×2 (11:36→16:05)
--- NOTE | 2019-07-05 12:00 | NUR ---
SAFETY PERSON NOTES SEEN AND EVALUATED BY DR GLILIAM , DISCUSSED PT GOT TRANSFERRED IN ICU DUE TO HYPOXIA , SPO2 OF 70% ON VENT SETTINGS ORDERED THIS AM , AFEBIRLE , VS WNL , PT IS TOLERATING CURRENT VENT SETTINGS @ AC 16 TV 550 FIO2 50% AND PEEP OF 5 WITH NO DISTRESS . MD AWARE
[2019-07-05] MEDS: IPRATROPIUM NEB FS 0.5 MG/2.5 ML AMPUL.NEB NEB SCH ×4 (12:04→23:55)
[2019-07-05] MEDS ORDERED: INSULIN REGULAR, HUMAN 100 UNIT/ML 3 ML VIAL SQ PRN (14:00)
[2019-07-05] MEDS ORDERED: DEXTROSE 50%-WATER 50 ML DISP.SYRIN IV PRN ×2 (14:00→17:30)
--- NOTE | 2019-07-05 17:33 | NUR ---
ROOM SERVICE RUNNER NOTES NOTIFIED DR GILLIAM REGARDING BS OF 315 ON MODERATE SSI Q6 , PT TOLERATING GT FEEDING OF GLYTROL @ 65ML/HR , VERIFIED IF HE WANTS TO CHANGE SSI TO AGGRESSIVE AND ORDER LABS TOMORROW , PER MD CHANGE SSI TO AGGRESSIVE AND OK FOR LABS TOMORROW , ORDERS CARRIED OUT .
[2019-07-05] MEDS: BLOOD SUGAR DIAGNOSTIC 1 EACH STRIP IN SCH (17:35)
[2019-07-05] MEDS ORDERED: BLOOD SUGAR DIAGNOSTIC 1 EACH STRIP IN SCH (18:00)
--- NOTE | 2019-07-05 18:47 | NUR ---
ABRASIVES SALES REPRESENTATIVE NOTES PATIENT STABLE , OPENS EYES ,TRACKS NON VERBAL , ON MECHANICAL VENT WITH SETTINGS OF AC 16 TV 550 FIO2 50% AND PEEP OF 5 WITH SPO2 OF 98% , SR 90 ON BEDSIDE MONITOR , GT PATENT AND INTACT WITH GLUCERNA @ 65ML/HR WITH NO RESIDUALS NOTED , FC DRAINING VIA GRAVITY , IV OF MIKE #20 PATENT AND INTACT , R WRIST # 22 WITH NS @ 75ML/HR INFUSING WELL , ALL NEEDS ATTENDED , BED ON LOW AND LOCKED POSITION , SIDE RAILS X2 ,CALL LIGHT WITHIN REACH , HOB @ 45 , ISOLATION PREC OBSERVED REPORT GIVEN TO HENRY FOR CONTINUITY OF CARE
--- NOTE | 2019-07-05 19:00 | NUR ---
Received patient on isolation ,r/o Covid 19. Awake,alert,seems to understand, with trache to the ventilator on AC mode,not in any distress,saturating 99-100 %. + generalized edema. G tube intact with on going tube feeding ,tolerating ,no residuals. Comfort care done,needs attended.
--- NOTE | 2019-07-05 20:10 | NUR ---
RT NOTE PT RECEIVED TRACHD ON MECHANICAL VENT. PATIENT IS TOLERATING CURRENT ORDERED AC SETTINGS. NO SIGNS OF RESPIRATORY DISTRESS NOTED. PATIENT SUCTIONED FOR THICK, OLIVAREZ SECRETIONS. ALARMS ARE SET AND AUDIBLE. MECHANICAL VENT IS PLUGGED INTO RED OUTLET. EMERGENCY EQUIPMENT AT BEDSIDE. Addendum: 07/05/19 at 2234 by CLAIRE MCGARRY RT Amended: Links added.
--- NOTE | 2019-07-05 22:00 | NUR ---
Stable,alert.copious amount of secretions orally.
[2019-07-06] VITALS (25 sets, daily range): BP systolic 124–162; BP diastolic 42–72
--- NOTE | 2019-07-06 | NUR ---
Status unchanged ,stable,not in any distress,awake,does not follow .
[2019-07-06] MEDS: BLOOD SUGAR DIAGNOSTIC 1 EACH STRIP IN SCH ×4 (00:22→17:47)
[2019-07-06] MEDS: INSULIN REGULAR, HUMAN 100 UNIT/ML 3 ML VIAL SQ PRN ×4 (00:25→17:50)
[2019-07-06] MEDS: ALBUTEROL HALF STRENGTH 1.25 MG/3 ML VIAL.NEB NEB SCH ×6 (03:53→23:20)
[2019-07-06] MEDS: IPRATROPIUM NEB FS 0.5 MG/2.5 ML AMPUL.NEB NEB SCH ×6 (03:53→23:20)
--- NOTE | 2019-07-06 04:00 | NUR ---
Still febrile,AM bath done with cool water,patient remains stable,not in any distress.
[2019-07-06] MEDS: ACETAMINOPHEN 325 MG TABLET PO PRN ×2 (04:47→17:26)
[2019-07-06] MEDS: IV NS 0.9% 1,000 ML IV PRN ×2 (04:54→18:18)
[2019-07-06] MEDS: PIPERACILLIN /TAZOBACTAM 3.375 G in IV D5W 100 ML IV SCH ×3 (04:54→20:36)
[2019-07-06 05:08] LABS: HEMATOCRIT 26 % (39-51); HEMOGLOBIN 8.2 g/dL (13.5-17.5); LYMPHOCYTES # (AUTO) 0.7 /CMM (0.8-4.8); LYMPHOCYTES % (AUTO) 5.6 % (20.0-44.0); MEAN CORPUSCULAR HGB CONC 32 g/dl (31.0-36.0); MEAN CORPUSCULAR VOLUME 95 fL (80-96); MONOCYTES # (AUTO) 0.6 /CMM (0.1-1.30); MONOCYTES % (AUTO) 5.3 % (2.0-12.0); NEUTROPHILS # (AUTO) 10.6 /CMM (1.8-8.9); NEUTROPHILS % (AUTO) 89.1 % (43.0-81.0); PLATELET COUNT (AUTO) 147 /CMM (150-450); RED BLOOD CELL COUNT(AUTO) 2.71 MIL/uL (4.5-6.0); WHITE BLOOD COUNT (AUTO) 11.9 K/uL (4.3-11.0)
[2019-07-06 05:25] LABS: CALCIUM, SERUM 8.9 mg/dL (8.5-10.1); CREATININE 1.1 mg/dL (0.6-1.3); MAGNESIUM 2.1 mg/dL (1.8-2.4); PHOSPHORUS 3.2 mg/dL (2.5-4.9); POTASSIUM 4.1 mmol/L (3.5-5.1)
--- NOTE | 2019-07-06 07:00 | NUR ---
Report given to Ansley PINZON
--- NOTE | 2019-07-06 07:05 | NUR ---
BUILDINGS PAINTER NOTES NITROGLYCERIN NOT AVAILABLE CALLED PHARMACY FOR DELIVERY.
[2019-07-06] MEDS: ENOXAPARIN SODIUM 40 MG/0.4 ML DISP.SYRIN SQ SCH (07:24)
[2019-07-06] MEDS: ACETYLCYSTEINE 10% SOLN 400 MG/4 ML VIAL NEB SCH ×3 (07:35→23:20)
--- NOTE | 2019-07-06 07:38 | NUR ---
WOUND CARE CONSULT: PT PRESENTS WITH BLISTERS TO RT HAND. RECOMMENDATIONS MADE FOR SKIN PROTECTION AND WOUND CARE. DISCUSSED WITH NURSING STAFF. PT REMAINS ON [place] ISOFLEX LOW AIRLOSS BED. WILL SEE PRN.
[2019-07-06] MEDS: methylPREDNISolone SOD SUCC 125 MG/2ML VIAL IV SCH (08:24)
[2019-07-06] MEDS: NITROGLYCERIN 30 GM TUBE TP SCH ×3 (08:26→20:38)
--- NOTE | 2019-07-06 08:30 | NUR ---
SUPERVISOR WARPING DEPARTMENT OPENING PATIENT IN BED AWAKE ALERT BUT NONVERBAL. NO SOB OR DISTRESS NOTED AT THIS TIME. NO RESIDUAL NOTED FROM GTUBE. LEFT HAND IV PATENT RUNNING NS AT 75ML/HR. NOTED DISTENDED ABDOMEN , AUSCULTATED AND HYPERACTIVE. BAPTISTE CATHETER 200CC.CALL LIGHT WITHIN REACH BED AT THE LOWEST POSITION LOCKED. WILL CONTINUE TO MONITOR PATIENT.
--- NOTE | 2019-07-06 09:09 | NUR ---
ICU NURSING NOTES (NITROGLYCERINE OINT) THE MEDICATION WAS NOT ADMINISTRATED AT 0900 BECAUSE THE MEDICATION WAS NOT GIVEN AT 0630 BY PREVIOUS NURSE DUE TO UNAVAILABILITY OF MED. THE 0630 MED WAS ADMINISTRATED AT 0826.
--- NOTE | 2019-07-06 13:27 | NUR ---
MUNITIONS HANDLER SUPERVISOR NOTES SOLU MEDROL GIVEN AT 0824 IN THE MORNING, PER DR MILNER IT IS OK TO SCHEDULE THE NEW DOSE 40MG IN THE MORNING ON 07/07/2019.
[2019-07-06] MEDS ORDERED: methylPREDNISolone SOD SUCC 125 MG/2ML VIAL IV SCH (13:30)
[2019-07-06] MEDS: SOD FERRIC GLUC 125 MG in IV NS 0.9% 100 ML IV SCH (13:54)
--- NOTE | 2019-07-06 16:00 | NUR ---
OPERATIONS ANALYST NOTES (CALL FROM LAB ABOUT COVID-19) RECEIVED A CALL FROM LAB THAT THE COVID-19 SAMPLE WAS REJECTED BY LAB [facility] AND THEY REQUESTED ANOTHER SAMPLE FOR IT. COVID-19 KIT OBTAINED FROM LAB PERSONALLY AND PERFORMED THE TEST WITH THE HELP OF CHARGE NURSE. DROP OFF THE SAMPLE BY GURJIT ALVAREZ RN TO LAB.
--- NOTE | 2019-07-06 17:26 | NUR ---
LAYBOY OPERATOR NOTES (TYLENOL ADMINISTRATION) ASKED PATIENT IF HE HAS ANY PAIN AND HE NODDED HIS HEAD. TYLENOL ADMINISTRATED.
--- NOTE | 2019-07-06 17:39 | NUR ---
RT NOTE: PATIENT RECEIVED TRACHED ON MECHANICAL VENT. ALARMS VERIFIED AND AUDIBLE. VENT PLUGGED INTO RED OUTLET. AMBU BAG @ [facility].
[2019-07-06] MEDS: GLUCERNA 1.2 1,000 ML BOTTLE NG PRN (18:41)
--- NOTE | 2019-07-06 19:15 | NUR ---
ICU/RN OPENING NOTE RECEIVED PATIENT ON VENTILATOR WITH NO SIGN OF ANY DISTRESS. RESPONSIVE TO PAIN STIMULI, NO SIGNS OF SOB.. RESPIRATIONS EVEN AND UNLABORED. SPO2@ 100% VIA MECHANICAL VENT SETTINGS ORDERED. TRACH IN PLACE, SR 95 ON BEDSIDE MONITOR GTUBE PATENT AND FLUSHED AND ASPIRATED WITH NO RESIDUAL AND GLUCERNA RUNNING AT 65ML/HR. FC DRAINING VIA GRAVITY WITH YELLOW OUTPUT.NS RUNNING AT 75CC/HR ON MIKE #20, LT HAND #22G PATENT AND FLUSHED. NS TKO INFUSING WELL. ALL SAFETY PRECAUTIONS APPLIED. WILL CONTINUE TO MONITOR PATIENT THROUGHOUT SHIFT.
--- NOTE | 2019-07-06 19:26 | NUR ---
HIV NURSE NOTES PATIENT IN BED NON VERBAL/ALERT AWAKE. ALL MEEDS ATTENDED ALL MEDICATIONS ADMINISTRATED. NO SOB OR DISCOMFORT AT THIS TIME. CALL LIGHT WITHIN REACH BED AT THE LOWEST POSITION LOCKED. ENDORSED TO NIGHT SHIDT NURSE FOR ELEANOR.
--- NOTE | 2019-07-06 19:54 | NUR ---
RT NOTES PT RECEIVED TRACHED ON [facility] VENT ON CHARTED SETTINGS. NO SIGNS OF RESP DISTRESS/SOB NOTED AT THIS TIME. AIRWAY PATENT AND SECURED. CYBER LEGAL ADVISOR DONE. PT SUCTIONED. HHN TX GIVEN. NO ADVERSE REACTIONS NOTED. ALARMS SET AND AUDIBLE. AMBUBAG AND SPARE TRACH PRESENT. VENT PLUGGED INTO RED OUTLET. WILL CONT TO MONITOR. Addendum: 07/06/19 at 2025 by JESSICA FRANZ RT Amended: Links added.
[2019-07-07] VITALS (24 sets, daily range): BP systolic 126–160; BP diastolic 56–74
[2019-07-07] MEDS: BLOOD SUGAR DIAGNOSTIC 1 EACH STRIP IN SCH ×4 (00:43→18:42)
[2019-07-07] MEDS: INSULIN REGULAR, HUMAN 100 UNIT/ML 3 ML VIAL SQ PRN ×4 (00:45→18:46)
[2019-07-07] MEDS: ALBUTEROL HALF STRENGTH 1.25 MG/3 ML VIAL.NEB NEB SCH ×6 (03:53→23:03)
[2019-07-07] MEDS: IPRATROPIUM NEB FS 0.5 MG/2.5 ML AMPUL.NEB NEB SCH ×6 (03:53→23:03)
[2019-07-07] MEDS: ACETAMINOPHEN 325 MG TABLET PO PRN ×2 (04:01→09:00)
[2019-07-07] MEDS: HYDROCODONE/APAP 5/325MG 1 EACH TABLET PO PRN (04:01)
--- NOTE | 2019-07-07 04:24 | NUR ---
ICU/RN NOTE DROPPED OFF CORONAVIRUS SPECIMEN AT LAB.
[2019-07-07 05:29] LABS: EOSINOPHILS % (AUTO) 0.1 % (0.0-6.0); HEMATOCRIT 24 % (39-51); HEMOGLOBIN 7.7 g/dL (13.5-17.5); LYMPHOCYTES % (AUTO) 8.1 % (20.0-44.0); MEAN CORPUSCULAR HGB CONC 32 g/dl (31.0-36.0); MEAN CORPUSCULAR VOLUME 95 fL (80-96); MONOCYTES # (AUTO) 0.6 /CMM (0.1-1.30); MONOCYTES % (AUTO) 4.6 % (2.0-12.0); NEUTROPHILS # (AUTO) 11.3 /CMM (1.8-8.9); NEUTROPHILS % (AUTO) 87.2 % (43.0-81.0); PLATELET COUNT (AUTO) 156 /CMM (150-450); RED BLOOD CELL COUNT(AUTO) 2.53 MIL/uL (4.5-6.0); WHITE BLOOD COUNT (AUTO) 12.9 K/uL (4.3-11.0)
[2019-07-07] MEDS: PIPERACILLIN /TAZOBACTAM 3.375 G in IV D5W 100 ML IV SCH (05:39)
[2019-07-07 05:43] LABS: CALCIUM, SERUM 8.8 mg/dL (8.5-10.1); POTASSIUM 3.7 mmol/L (3.5-5.1)
--- NOTE | 2019-07-07 07:10 | NUR ---
ICU/RN CLOSING NOTE PATIENT ON VENTILATOR WITH NO SIGN OF ANY DISTRESS. RESPONSIVE TO PAIN STIMULI, NO SIGNS OF SOB.. RESPIRATIONS EVEN AND UNLABORED. SPO2@ 100% VIA MECHANICAL VENT SETTINGS ORDERED. TRACH IN PLACE, SR 100 ON BEDSIDE MONITOR GTUBE PATENT AND FLUSHED AND ASPIRATED WITH NO RESIDUAL AND GLUCERNA RUNNING AT 65ML/HR. FC DRAINING VIA GRAVITY WITH YELLOW OUTPUT.NS RUNNING AT 75CC/HR ON MIKE #20, LT HAND #22G PATENT AND FLUSHED. NS TKO INFUSING WELL. ALL SAFETY PRECAUTIONS APPLIED. ENDORSED PATIENT TO MORNING SHIFT NURSE FOR ELEANOR.
--- NOTE | 2019-07-07 07:15 | NUR ---
TIN CAN FEEDER NOTES RECEIVED PT , ALERT TO SELF, OPENS EYES ,TRACKS NON VERBAL , ON MECHANICAL VENT WITH SETTINGS OF AC 16 TV 550 FIO2 50% AND PEEP OF 5 WITH SPO2 OF 100% , JUNCTIONAL RYTHM 96 ON BEDSIDE MONITOR , GT PATENT AND INTACT WITH GLUCERNA @ 65ML/HR WITH NO RESIDUALS NOTED , FC DRAINING VIA GRAVITY , IV OF MIKE #20 PATENT AND INTACT , L WRIST # 22 WITH NS @ 75ML/HR INFUSING WELL , ALL NEEDS ATTENDED , BED ON LOW AND LOCKED POSITION , SIDE RAILS X2 ,CALL LIGHT WITHIN REACH , HOB @ 45 , ISOLATION PREC OBSERVED , WILL CONTINUE TO MONITOR
[2019-07-07] MEDS: ACETYLCYSTEINE 10% SOLN 400 MG/4 ML VIAL NEB SCH ×3 (07:47→23:03)
[2019-07-07] MEDS: IV NS 0.9% 1,000 ML IV PRN ×2 (08:00→22:26)
[2019-07-07] MEDS: GLUCERNA 1.2 1,000 ML BOTTLE NG PRN (08:00)
--- NOTE | 2019-07-07 08:00 | NUR ---
SENIOR SYSTEMS SOFTWARE ENGINEER NOTES PT TOLERATING GT FEEDING NO RESIDUALS , ABDOMEN MILDLY DISTENDED , SOFT TO TOUCH , WILL CONTINUE TO MONITOR
[2019-07-07] MEDS: methylPREDNISolone SOD SUCC 125 MG/2ML VIAL IV SCH (08:08)
[2019-07-07] MEDS: NITROGLYCERIN 30 GM TUBE TP SCH ×2 (08:09→20:43)
[2019-07-07] MEDS: ENOXAPARIN SODIUM 40 MG/0.4 ML DISP.SYRIN SQ SCH (08:09)
--- NOTE | 2019-07-07 09:06 | NUR ---
VEGETABLE GRADER NOTES SEEN AND EVALUATED BY MAICO CAPELLAN NEWSPAPER COLUMNIST , DISCUSSED LABS , PT TEMP OF 101F , COOLING MEASURES RENDERED , TYLENOL PRN GIVEN , TOLERATING CURRENT VENT SETTINGS WITH NO SIGNS OF DISTRESS , SPO2 OF 100% , GOOD URINE OUTPUT , TOLERATING GTF . WILL CONTINUE TO MONITOR
--- NOTE | 2019-07-07 10:12 | NUR ---
CITY JAILER NOTES SEEN AND EVALUATED BY DR MILNER , DISCUSSED LABS , PT TEMP OF 101F , COOLING MEASURES RENDERED , TYLENOL PRN GIVEN , TOLERATING CURRENT VENT SETTINGS WITH NO SIGNS OF DISTRESS , SPO2 OF 100% , GOOD URINE OUTPUT , TOLERATING GTF . PER MD ORDER BLOOD CULTURE X2 , URINALYSIS AND URINE CULTURE , ORDERS CARRIED OUT
[2019-07-07 11:33] LABS: IRON, SERUM 43 ug/dl (50-175); TOTAL IRON BINDING CAPACITY 117 ug/dl (250-450)
[2019-07-07 11:59] LABS: FERRITIN 1349 ng/mL (8-388)
[2019-07-07] MEDS ORDERED: MEROPENEM 1 G in IV NS 0.9% 100 ML IV ONE (12:00)
[2019-07-07] MEDS: PANTOPRAZOLE 40 MG VIAL IV SCH (12:25)
[2019-07-07] MEDS: SUCRALFATE 1 G TABLET PO SCH ×3 (12:25→22:37)
[2019-07-07] MEDS: SOD FERRIC GLUC 125 MG in IV NS 0.9% 100 ML IV SCH (13:15)
--- NOTE | 2019-07-07 16:00 | NUR ---
IVORY POLISHER NOTES ABDOMEN NOTED WITH DISTENTION , BUT SOFT TO TOUCH , TOLERATING GT FEEDING ,MIKE # 20 IV INTACT , PT IS HARD STICK , , NOTIFIED MAICO CAPELLAN , AWAITING FOR CALL BACK
--- NOTE | 2019-07-07 16:00 | NUR ---
JET INSPECTOR NOTES GT FEEDING HELD DUE TO ABD DISTENTION , NO RESIDUALS , SOFT TO TOUCH, WILL NOTIFY MD .
--- NOTE | 2019-07-07 16:30 | NUR ---
MORTGAGE LENDER NOTES CALLED [facility] , SPOKE WITH GURJIT , DISCUSSED THAT [facility] FOR [facility]ENSITIVITY TO [place] TO [place] , ADVICE TO CALL TOMORROW AM
--- NOTE | 2019-07-07 18:30 | NUR ---
ART HISTORY INSTRUCTOR NOTES COVID SWAB COLLECTED , LABELED AND DROPPED TO LAB , LABELED NOTED WITH NASAL PER [facility] , SPUTUM AND URINE SPECIMEN COLLECTED, LABELED , CALL LAB FOR FUSING MACHINE FEEDER .
--- NOTE | 2019-07-07 18:30 | NUR ---
STAGE BUILDER NOTES SPOKE WITH AUSTEN CAPELLAN , PER SHIFT LAB TECHNICIAN OK TO INSERT MIDLINE , NOTIFIED [facility] , AND OK TO DO KUV , FEEDING HELD , GT CLAMPED , WILL CONTINUE TO MONITOR
[2019-07-07] MEDS: MEROPENEM 1 G in IV NS 0.9% 100 ML IV SCH (18:42)
[2019-07-07 18:52] LABS: APPEARANCE,URINE SL CLOUDY (CLEAR); BILIRUBIN,URINE NEGATIVE (NEGATIVE); BLOOD, URINE SMALL Ery/uL (NEGATIVE); COLOR,URINE YELLOW (YELLOW); KETONES,URINE NEGATIVE (NEGATIVE); LEUKOCYTE ESTERASE ,URINE SMALL (NEGATIVE); NITRITE, URINE NEGATIVE (NEGATIVE); PH,URINE 6.5 (5.0-8.0); PROTEIN,URINE 100 mg/dl (NEGATIVE); UGLUCOSE 100 MG/DL mg/dL (NEGATIVE); UROBILINOGEN,URINE 0.2 EU/dL (0.2)
[2019-07-07] MEDS ORDERED: FEE PK DOSING 1 MIN EA MC ONE (19:00)
[2019-07-07 19:22] LABS: BACTERIA,URINE 1+ /HPF (None Seen); SQUAMOUS EPITHELIAL CELL,UR 0-2 /HPF (None Seen); YEAST,URINE Few /HPF (None Seen)
[2019-07-07 19:40] LABS: HEMOGLOBIN 8.3 g/dL (13.5-17.5)
[2019-07-07] MEDS: VANCOMYCIN 0.75 GM in IV D5W 250 ML IV SCH (20:42)
[2019-07-08] VITALS (24 sets, daily range): BP systolic 111–160; BP diastolic 49–96
--- NOTE | 2019-07-08 01:50 | NUR ---
ICU/BREAK AND LOAD OPERATOR REPORT FROM LONA De La Cruz RN FOR CONT OF CARE.
[2019-07-08] MEDS: MEROPENEM 1 G in IV NS 0.9% 100 ML IV SCH ×3 (02:10→17:04)
[2019-07-08] MEDS: ALBUTEROL HALF STRENGTH 1.25 MG/3 ML VIAL.NEB NEB SCH ×6 (03:03→22:49)
[2019-07-08] MEDS: IPRATROPIUM NEB FS 0.5 MG/2.5 ML AMPUL.NEB NEB SCH ×6 (03:03→22:49)
[2019-07-08 05:20] LABS: BASOPHILS % (AUTO) 0.1 % (0.0-2.0); EOSINOPHILS % (AUTO) 0.1 % (0.0-6.0); HEMATOCRIT 24 % (39-51); HEMOGLOBIN 7.7 g/dL (13.5-17.5); LYMPHOCYTES # (AUTO) 1.2 /CMM (0.8-4.8); LYMPHOCYTES % (AUTO) 11.3 % (20.0-44.0); MEAN CORPUSCULAR HGB CONC 33 g/dl (31.0-36.0); MEAN CORPUSCULAR VOLUME 94 fL (80-96); MONOCYTES # (AUTO) 0.6 /CMM (0.1-1.30); MONOCYTES % (AUTO) 5.6 % (2.0-12.0); NEUTROPHILS # (AUTO) 8.9 /CMM (1.8-8.9); NEUTROPHILS % (AUTO) 82.9 % (43.0-81.0); PLATELET COUNT (AUTO) 162 /CMM (150-450); WHITE BLOOD COUNT (AUTO) 10.7 K/uL (4.3-11.0)
[2019-07-08 05:30] LABS: CALCIUM, SERUM 8.5 mg/dL (8.5-10.1); CREATININE 0.9 mg/dL (0.6-1.3); POTASSIUM 3.2 mmol/L (3.5-5.1)
[2019-07-08] MEDS: VANCOMYCIN 0.75 GM in IV D5W 250 ML IV SCH ×2 (06:04→21:58)
[2019-07-08] MEDS: BLOOD SUGAR DIAGNOSTIC 1 EACH STRIP IN SCH ×4 (06:06→17:05)
--- NOTE | 2019-07-08 08:00 | NUR ---
ICU/RN AM SHIFT OPENING NOTES Received Pt. awake in bed, A/O x 1, open eyes, no acute change of condition or grimacing. Vent dependent with rates set as prescribed, saturating @ 94%, respirations even & unlabored, noted with diminished lung sounds, foamy clear secretion in the mouth, suctioned orally and through trached tube for airway clearance. On tele monitoring with sinus rhythm with junctional rhythm, HR 87. Noted with pitting edema on all extremities, Noted with distended, abdomen, GT intact, clamp, on NPO status at this time. Esparza catheter intact with cloudy yellow urine output with sediments. IV sites, flushed, patent with no S/S of infection, with on going IV infusion on Left Upper arm peripheral IV with NS @ 75cc/hr. Pt is comfortable, scheduled AM meds to be given. CL within reached, safety maintained and isolation observed for possible coronavirus infection. On going monitoring.
[2019-07-08] MEDS: ACETYLCYSTEINE 10% SOLN 400 MG/4 ML VIAL NEB SCH ×3 (08:10→22:49)
[2019-07-08] MEDS: IV NS 0.9% 1,000 ML IV PRN (09:59)
[2019-07-08] MEDS: SUCRALFATE 1 G TABLET PO SCH ×4 (11:06→22:07)
[2019-07-08] MEDS: methylPREDNISolone SOD SUCC 125 MG/2ML VIAL IV SCH (11:07)
[2019-07-08] MEDS: POTASSIUM CL. PREMIX PERIPHER. 50 ML IV SCH ×4 (11:07→17:04)
[2019-07-08] MEDS: NITROGLYCERIN 30 GM TUBE TP SCH ×2 (11:08→21:52)
[2019-07-08] MEDS: ENOXAPARIN SODIUM 40 MG/0.4 ML DISP.SYRIN SQ SCH (11:09)
--- NOTE | 2019-07-08 12:00 | NUR ---
ICU/RN NOON ROUNDS Pt needing frequent trach and oral suctioning, noted with thick clear secretions. No change of condition. Monitoring continued.
[2019-07-08] MEDS: PANTOPRAZOLE 40 MG VIAL IV SCH (12:49)
--- NOTE | 2019-07-08 13:00 | NUR ---
ICU/RN FOLLOW-UP RESULT Called laboratory to follow-up on result of the coronavirus test, per earth science laboratory technician no result yet. Notified both charge nurse and pharmacy.
[2019-07-08] MEDS: INSULIN REGULAR, HUMAN 100 UNIT/ML 3 ML VIAL SQ PRN ×2 (13:04→17:16)
--- NOTE | 2019-07-08 17:30 | NUR ---
ICU/RN AFTERNOON ROUNDS PM care provided, no change of condition. On going monitoring.
[2019-07-08 17:45] LABS: HEMOGLOBIN 8.1 g/dL (13.5-17.5)
--- NOTE | 2019-07-08 19:30 | NUR ---
ICU/RN AM SHIFT CLOSING NOTES All needs met. No acute change of condition noted during the shift. Pt endorsed to PM nurse to continue care. CL within reached, safety maintained and isolation observed.
--- NOTE | 2019-07-08 19:30 | NUR ---
FRONT END WHEEL LOADER OPERATOR OPENING NOTES RECEIVED PATIENT, A/O X1. UNDERSTANDS [place] AND FOLLOWS COMMENDS. PATIENT IS ON DROPLET ISOLATION TO R/O COVID 19. NOTED WITH WHITE FOAMY SECREATION AROUND MOUTH AND NECK, SUCTIONED BY MOUTH AND TRACH TO CLEAR THE AIRWAY. ON MECHANICAL VENT WITH SETTINGS OF AC 16, TV 550, FIO2 50% AND PEEP OF 5 WITH SPO2 OF 100%, JUNCTIONAL RHYTHM OF LOW 60s ON BEDSIDE MONITOR, GT CLAMPED AND PATIENT IS ON NPO STATUES UNTIL FARTHER NOTE. GT SITE PATENT AND NO RESIDUAL NOTED AT THIS TIME. ABDOMEN IS EXTENDED WITH NO BOWEL SOUND AT THIS TIME. BAPTISTE DRAINING VIA GRAVITY. IV OF MIKE#20 PATENT AND INTACT, WITH NS @75ML/HR INFUSING, AND JOSE MIDLINE #18 PATENT AND INTACT. NO S/S OF INFILTRATION NOTED AT IV SITES. BED IN LOW LOCKED POSITION. CALL LIGHT WITHIN REACH, SIDE RAILS UP X2, WILL CONTINUE TO MONITOR THE PATIENT CLOSELY.
[2019-07-09] VITALS (24 sets, daily range): BP systolic 132–168; BP diastolic 48–80
[2019-07-09] MEDS: BLOOD SUGAR DIAGNOSTIC 1 EACH STRIP IN SCH ×4 (00:14→17:33)
[2019-07-09] MEDS: INSULIN REGULAR, HUMAN 100 UNIT/ML 3 ML VIAL SQ PRN ×2 (00:27→17:34)
[2019-07-09] MEDS: MEROPENEM 1 G in IV NS 0.9% 100 ML IV SCH ×3 (01:52→17:05)
[2019-07-09] MEDS: ALBUTEROL HALF STRENGTH 1.25 MG/3 ML VIAL.NEB NEB SCH ×6 (03:13→23:30)
[2019-07-09] MEDS: IPRATROPIUM NEB FS 0.5 MG/2.5 ML AMPUL.NEB NEB SCH ×6 (03:14→23:30)
[2019-07-09 05:08] LABS: BASOPHILS % (AUTO) 0.1 % (0.0-2.0); EOSINOPHILS % (AUTO) 0.1 % (0.0-6.0); HEMATOCRIT 25 % (39-51); LYMPHOCYTES # (AUTO) 1.1 /CMM (0.8-4.8); LYMPHOCYTES % (AUTO) 11.6 % (20.0-44.0); MEAN CORPUSCULAR HGB CONC 32 g/dl (31.0-36.0); MEAN CORPUSCULAR VOLUME 94 fL (80-96); MONOCYTES # (AUTO) 0.5 /CMM (0.1-1.30); MONOCYTES % (AUTO) 5.6 % (2.0-12.0); NEUTROPHILS # (AUTO) 7.7 /CMM (1.8-8.9); NEUTROPHILS % (AUTO) 82.6 % (43.0-81.0); PLATELET COUNT (AUTO) 146 /CMM (150-450); RED BLOOD CELL COUNT(AUTO) 2.61 MIL/uL (4.5-6.0); WHITE BLOOD COUNT (AUTO) 9.3 K/uL (4.3-11.0)
[2019-07-09 05:37] LABS: CALCIUM, SERUM 8.4 mg/dL (8.5-10.1); CREATININE 0.8 mg/dL (0.6-1.3); POTASSIUM 3.4 mmol/L (3.5-5.1)
[2019-07-09] MEDS: IV NS 0.9% 1,000 ML IV PRN ×2 (06:11→20:17)
[2019-07-09] MEDS: ACETYLCYSTEINE 10% SOLN 400 MG/4 ML VIAL NEB SCH ×3 (07:25→23:30)
--- NOTE | 2019-07-09 07:30 | NUR ---
ELDER ASSISTANT OPENING NOTE RECEIVED BEDSIDE REPORT. PATIENT IN BED, A/O X1. PATIENT IS ON DROPLET ISOLATION TO R/O COVID 19. ON MECHANICAL VENT, TOLERATING SETTINGS WELL, NO SIGNS OF RESPIRATORY DISTRESS NOTED. SINUS RHYTHM ON TELE MONITOR, GT CLAMPED, PATENT, NO RESIDUAL NOTED AT THIS TIME. ABDOMEN IS DISTENDED. BAPTISTE CATH INTACT, PATENT, DRAINING CLEAR YELLOW URINE. IV SITE ON LEFT AC G20, INTACT, PATENT, WITH NS INFUSING AT 75CC/HR, NO SIGNS OF INFILTRATION NOTED. JOSE MIDLINE PATENT, INTACT. BED IN LOW LOCKED POSITION. CALL LIGHT WITHIN REACH, SIDE RAILS UP X2.
--- NOTE | 2019-07-09 07:35 | NUR ---
TRANSPORTATION DEPARTMENT HEAD CLOSING NOTES, PATIENT IN BED, A/O X1. PATIENT IS ON DROPLET ISOLATION TO R/O COVID 19. ON MECHANICAL VENT WITH SETTINGS OF AC 16, TV 550, FIO2 50% AND PEEP OF 5 WITH SPO2 OF 100%, SINUS RHYTHM OF LOW 60s ON BEDSIDE MONITOR, GT CLAMPED AND PATIENT IS ON NPO STATUES UNTIL FARTHER NOTE. SUCTIONED MOUTH AND TRACH TO CLEAR THE AIRWAY THOROUGH THE NIGHT. GT SITE PATENT AND NO RESIDUAL NOTED AT THIS TIME. ABDOMEN IS EXTENDED WITH NO BOWEL SOUND AT THIS TIME. BAPTISTE DRAINING VIA GRAVITY. IV OF MIKE#20 PATENT AND INTACT, WITH NS @75ML/HR INFUSING, AND JOSE MIDLINE #18 PATENT AND INTACT. NO S/S OF INFILTRATION NOTED AT IV SITES. BED IN LOW LOCKED POSITION. CALL LIGHT WITHIN REACH, SIDE RAILS UP X2, ENDORSED THE PATIENT TO AM RN FOR ELEANOR.
[2019-07-09] MEDS: POTASSIUM CL. PREMIX PERIPHER. 50 ML IV SCH ×2 (07:52→08:55)
[2019-07-09] MEDS: SUCRALFATE 1 G TABLET PO SCH ×4 (07:52→21:49)
[2019-07-09] MEDS: VANCOMYCIN 0.75 GM in IV D5W 250 ML IV SCH ×2 (07:53→19:39)
[2019-07-09] MEDS: methylPREDNISolone SOD SUCC 125 MG/2ML VIAL IV SCH (08:03)
[2019-07-09] MEDS: ENOXAPARIN SODIUM 40 MG/0.4 ML DISP.SYRIN SQ SCH (08:06)
[2019-07-09] MEDS: NITROGLYCERIN 30 GM TUBE TP SCH ×2 (08:08→20:18)
--- NOTE | 2019-07-09 08:59 | NUR ---
WOUND CARE CONSULT: PT SEEN FOR LEFT HEEL FRAGILE HEALED AREA (PRESENT ON ADMISSION) AND RT LOWER LEG RE-OPENED ARTERIAL ULCER, PRESENT ON ADMISSION SCARRING WELL PINK AREA OF DISCOLORATION ON LEFT LOWER LEG, NO DRAINAGE. RECOMMEND DPM CONSULT. DR OCONNOR NOTIFIED OF CONSULT REQUEST. PT ON [place] ISOFLEX LOW AIRLOSS BED. ALL SKIN PROTECTION RECOMMENDATIONS DISCUSSED WITH NURSING STAFF. DEFER TO DPM FOR LOWER EXTREMITIES. IN AGREEMENT WITH PLAN OF CARE. Addendum: 07/09/19 at 0902 by DOMINIQUE BLUNT WNDNU Amended: Links added.
[2019-07-09] MEDS: PANTOPRAZOLE 40 MG VIAL IV SCH (10:49)
--- NOTE | 2019-07-09 19:35 | NUR ---
FINANCIAL OPERATIONS ANALYST OPENING NOTE RECEIVED BEDSIDE REPORT. PATIENT IN BED, A/O X1. PATIENT IS ON DROPLET ISOLATION TO R/O COVID 19. ON MECHANICAL VENT, TOLERATING SETTINGS WELL, NO SOB OR NO SIGNS OF RESPIRATORY DISTRESS NOTED. SINUS RHYTHM ON TELE MONITOR, GT CLAMPED, PATENT, NO RESIDUAL NOTED AT THIS TIME. ABDOMEN IS DISTENDED. BAPTISTE CATH INTACT, PATENT, DRAINING CLEAR YELLOW URINE. IV SITE ON LEFT AC 20G, INTACT, PATENT, WITH NS INFUSING AT 75CC/HR, NO SIGNS OF INFILTRATION NOTED. JOSE MIDLINE PATENT, INTACT. BED IN LOW LOCKED POSITION. CALL LIGHT WITHIN REACH, SIDE RAILS UP X2. WILL CONTINUE TO MONITOR
[2019-07-10] VITALS (17 sets, daily range): BP systolic 131–161; BP diastolic 56–80
[2019-07-10] MEDS: BLOOD SUGAR DIAGNOSTIC 1 EACH STRIP IN SCH ×4 (00:16→18:03)
[2019-07-10] MEDS: INSULIN REGULAR, HUMAN 100 UNIT/ML 3 ML VIAL SQ PRN ×2 (00:18→18:18)
--- NOTE | 2019-07-10 00:55 | NUR ---
INOCENCIO RN NOTE RECEIVED REPORT FROM [facility] ICU NURSE FOR ELEANOR.
--- NOTE | 2019-07-10 01:00 | NUR ---
PATIENT IS STABLE, VS WNL. NO SIGH OF SOB OR ACUTE DISTRESS, REPORT GIVEN TO INOCENCIO RNFROILAN FOR CONTINUE OF CARE. PATIENT WILL BE TRANSFERRED TO INOCENCIO PER MDs ORDER.
--- NOTE | 2019-07-10 01:20 | NUR ---
[facility] RN NOTE PATIENT TRANSFERRED TO ROOM 109.
[2019-07-10] MEDS: MEROPENEM 1 G in IV NS 0.9% 100 ML IV SCH ×3 (02:16→17:04)
[2019-07-10] MEDS: ALBUTEROL HALF STRENGTH 1.25 MG/3 ML VIAL.NEB NEB SCH ×6 (03:30→22:56)
[2019-07-10] MEDS: IPRATROPIUM NEB FS 0.5 MG/2.5 ML AMPUL.NEB NEB SCH ×6 (03:30→22:56)
--- NOTE | 2019-07-10 06:45 | NUR ---
[facility] RN CLOSING NOTES PATIENT IS AWAKE APPEARS CALM AND RELAXED. BREATHING NORMAL NO SOB NOTED. NO S/S OF ACUTE DISTRESS NOTED. PATIENT AFEBRILE. CONT ON VENT SETTING TOLERATING ORDERED. GTF CLAMPED BY ICU NURSE FOR FURTHER TESTING. R HAND AND LEFT HAND IV LINE INTACT. NO CHANGE OF CONDITION AT THIS. SUCTION NEEDED THROUGHOUT THE SHIFT. CONTINUE ON ISOLATION. TURNING AND REPOSITIONING Q2H ORDERED. KEPT PT CLEAN, DRY, AND COMFORTABLE.SAFETY MEASURES IN PLACE, BED IN LOW AND LOCKED POSITION. WILL ENDORSE TO DAY SHIFT NURSE FOR ELEANOR.
[2019-07-10 06:48] LABS: EOSINOPHILS % (AUTO) 0.1 % (0.0-6.0); HEMATOCRIT 21 % (39-51); LYMPHOCYTES # (AUTO) 1.1 /CMM (0.8-4.8); LYMPHOCYTES % (AUTO) 10.4 % (20.0-44.0); MEAN CORPUSCULAR HGB CONC 33 g/dl (31.0-36.0); MEAN CORPUSCULAR VOLUME 95 fL (80-96); MONOCYTES # (AUTO) 0.6 /CMM (0.1-1.30); MONOCYTES % (AUTO) 5.7 % (2.0-12.0); NEUTROPHILS # (AUTO) 8.5 /CMM (1.8-8.9); NEUTROPHILS % (AUTO) 83.8 % (43.0-81.0); PLATELET COUNT (AUTO) 162 /CMM (150-450); RED BLOOD CELL COUNT(AUTO) 2.24 MIL/uL (4.5-6.0); WHITE BLOOD COUNT (AUTO) 10.1 K/uL (4.3-11.0)
[2019-07-10] MEDS: VANCOMYCIN 0.75 GM in IV D5W 250 ML IV SCH ×2 (07:05→19:39)
[2019-07-10] MEDS: SUCRALFATE 1 G TABLET PO SCH ×4 (07:05→22:05)
[2019-07-10 07:07] LABS: CALCIUM, SERUM 7.1 mg/dL (8.5-10.1); CREATININE 0.7 mg/dL (0.6-1.3); MAGNESIUM 1.7 mg/dL (1.8-2.4)
[2019-07-10 07:24] LABS: HEMOGLOBIN 6.9 g/dL (13.5-17.5)
--- NOTE | 2019-07-10 07:26 | NUR ---
RECEIVED CALL FROM LAB WITH CRITICAL LAB RESULT HGB 6.9 SPOKE WITH MORGAN
--- NOTE | 2019-07-10 07:30 | NUR ---
RN OPENING NOTE RECEIVED BEDSIDE REPORT. PATIENT IS ON DROPLET ISOLATION TO R/O COVID 19. ON MECHANICAL VENT, TOLERATING SETTINGS WELL, NO SIGNS OF RESPIRATORY DISTRESS NOTED. SINUS RHYTHM ON TELE MONITOR, GT CLAMPED, PATENT, NO RESIDUAL NOTED AT THIS TIME. ABDOMEN IS DISTENDED. BAPTISTE CATH INTACT, PATENT, DRAINING CLEAR YELLOW URINE. IV SITE ON LEFT AC G20, INTACT, PATENT, WITH HEP LOCK IN PLACE. JOSE MIDLINE PATENT, INTACT, NS INFUSING AT 75CC/HR. BED IN LOW LOCKED POSITION. CALL LIGHT WITHIN REACH.
[2019-07-10 07:49] LABS: LYMPHOCYTES % (MANUAL) 14 % (16-48); MONOCYTES % (MANUAL) 4 % (0-11.0); MYELOCYTES % 2 % (0-0); NEUTROPHILS % (MANUAL) 80 (42-76)
--- NOTE | 2019-07-10 08:11 | NUR ---
NOTIFIED DR. GILLIAM OF HGB RESULTS
[2019-07-10] MEDS: ACETYLCYSTEINE 10% SOLN 400 MG/4 ML VIAL NEB SCH ×3 (08:13→22:56)
[2019-07-10] MEDS: ENOXAPARIN SODIUM 40 MG/0.4 ML DISP.SYRIN SQ SCH (08:45)
--- NOTE | 2019-07-10 08:46 | NUR ---
HELD SCHEDULED LOVENOX DUE TO LOW HGB
[2019-07-10] MEDS: methylPREDNISolone SOD SUCC 125 MG/2ML VIAL IV SCH (09:27)
[2019-07-10] MEDS: NITROGLYCERIN 30 GM TUBE TP SCH ×2 (09:29→20:22)
[2019-07-10] MEDS: Magnesium 1GM/D5W 100ML PREMIX 100 ML IV SCH ×2 (09:53→11:00)
[2019-07-10] MEDS: PANTOPRAZOLE 40 MG VIAL IV SCH (10:30)
[2019-07-10] MEDS: POTASSIUM CHLORIDE 20 MEQ TAB.PRT.SR PO SCH ×3 (11:37→13:45)
--- NOTE | 2019-07-10 12:34 | NUR ---
BEGAN TRANSFUSING 1PRBC, INITIAL RATE SET AT 80CC/HR. VITALS CHECKED EVERY 5 MIN DURING FIRST 15 MIN. PT TOLERATING TRANSFUSION WELL, NO SIGNS OF ADVERSE REACTION NOTED.
--- NOTE | 2019-07-10 13:16 | NUR ---
INCREASED TRANSFUSION RATE TO 160CC/HR, PT TOLERATING WELL. WILL CONTINUE TO MONITOR CLOSELY.
--- NOTE | 2019-07-10 13:52 | NUR ---
dr. rivas notified per infection control cannnot discontinue iso coz covid result still pending ,case checker notified pt. has discharge order but still on iso pending covid results.
--- NOTE | 2019-07-10 13:54 | NUR ---
nursing sup made aware.
[2019-07-10] MEDS ORDERED: DOSING PER PHARMACY-TOBRA INHALATION 1 EA XX PRN (19:00)
[2019-07-10] MEDS ORDERED: FEE PK DOSING 1 MIN EA MC ONE (19:05)
--- NOTE | 2019-07-10 19:20 | NUR ---
RN OPENING NOTE PATIENT ON DROPLET ISOLATION TO R/O COVID 19. ON MECHANICAL VENT, TOLERATING SETTINGS WELL, NO SIGNS OF RESPIRATORY DISTRESS NOTED. ON TELE MONITOR SINUS RHYTHM. GT CLAMPED, PATENT, NO RESIDUAL NOTED. ABDOMEN IS DISTENDED MD AWARE PER AM NURSE. BAPTISTE CATH INTACT, PATENT, DRAINING CLEAR YELLOW URINE. IV SITE ON LEFT AC G20, INTACT, PATENT, WITH SL IN PLACE. JOSE MIDLINE PATENT, INTACT, NS INFUSING AT 75CC/HR. BED IN LOW LOCKED POSITION. CALL LIGHT WITHIN REACH. WILL CONT TO MONITOR PT
[2019-07-10] MEDS: FLUCONAZOLE (100 MG) 100 MG TABLET PO SCH (19:47)
[2019-07-10] MEDS: TOBRAMYCIN 120 MG in IV D5W 50 ML IV SCH (20:24)
[2019-07-10] MEDS: IV NS 0.9% 1,000 ML IV PRN (20:32)
[2019-07-11] VITALS: BP 129/64
[2019-07-11] MEDS: BLOOD SUGAR DIAGNOSTIC 1 EACH STRIP IN SCH ×4 (00:24→17:51)
[2019-07-11] MEDS: INSULIN REGULAR, HUMAN 100 UNIT/ML 3 ML VIAL SQ PRN ×3 (00:27→17:54)
[2019-07-11] MEDS: MEROPENEM 1 G in IV NS 0.9% 100 ML IV SCH ×3 (02:09→18:56)
[2019-07-11] MEDS: IPRATROPIUM NEB FS 0.5 MG/2.5 ML AMPUL.NEB NEB SCH ×5 (03:40→20:00)
[2019-07-11] MEDS: ALBUTEROL HALF STRENGTH 1.25 MG/3 ML VIAL.NEB NEB SCH ×5 (03:40→20:00)
[2019-07-11 04:00] VITALS: BP_SYST 135; BP_SYST 159; BP_DIAS 65; BP_DIAS 72
--- NOTE | 2019-07-11 05:55 | NUR ---
RN NOTE BAPTISTE CHANGED PER MD ORDERS, 16 FR USED. PT TOLERATED WELL , DRAINING YELLOW URINE.
[2019-07-11 06:17] LABS: BASOPHILS % (AUTO) 0.1 % (0.0-2.0); HEMATOCRIT 31 % (39-51); HEMOGLOBIN 10.5 g/dL (13.5-17.5); LYMPHOCYTES # (AUTO) 0.8 /CMM (0.8-4.8); LYMPHOCYTES % (AUTO) 6.5 % (20.0-44.0); MEAN CORPUSCULAR HGB CONC 34 g/dl (31.0-36.0); MEAN CORPUSCULAR VOLUME 91 fL (80-96); MONOCYTES # (AUTO) 0.7 /CMM (0.1-1.30); MONOCYTES % (AUTO) 5.2 % (2.0-12.0); NEUTROPHILS # (AUTO) 11.3 /CMM (1.8-8.9); NEUTROPHILS % (AUTO) 88.2 % (43.0-81.0); PLATELET COUNT (AUTO) 203 /CMM (150-450); WHITE BLOOD COUNT (AUTO) 12.8 K/uL (4.3-11.0)
[2019-07-11 06:54] LABS: ALBUMIN 2.4 g/dL (3.4-5.0); BILIRUBIN,TOTAL 1.4 mg/dL (0.2-1.0); CALCIUM, SERUM 8.6 mg/dL (8.5-10.1); CREATININE 0.8 mg/dL (0.6-1.3); MAGNESIUM 2.5 mg/dL (1.8-2.4); PHOSPHORUS 2.9 mg/dL (2.5-4.9); POTASSIUM 3.6 mmol/L (3.5-5.1); TOTAL PROTEIN, SERUM 6.8 g/dL (6.4-8.2)
--- NOTE | 2019-07-11 07:15 | NUR ---
[employer] OFFICER NOTES PATIENT IN BED AWAKE A/O3-4 NO VERBAL. ON DROPLET ISOLATIONS. NPO AND GTUBE FEEDING IS STOPPED. NO RESIDUAL NOTED FROM GTUBE SITE. WHEN ASKED PT FOR PAIN HE DENIES. ABDOMEN IS DISTENDED AND XRAY ORDER IS IN PROCESS. BOTH IV SITES PATENT. CALL LIGHT WITHIN REACH BE REYNALDO THE LOWEST POSITION LOCKED. WILL CONTINUE TO MONITOR THE PATIENT.
--- NOTE | 2019-07-11 07:19 | NUR ---
RN CLOSING NOTE PATIENT AWAKE ON DROPLET ISOLATION TO R/O COVID 19. ON MECHANICAL VENT, TOLERATING SETTINGS WELL, NO SIGNS OF RESPIRATORY DISTRESS NOTED DURING SHIFT. ON TELE MONITOR SINUS RHYTHM. GT CLAMPED, PATENT, NO RESIDUAL NOTED. ABDOMEN IS DISTENDED MD AWARE PER AM NURSE. BAPTISTE CATH CHANGED INTACT, PATENT, DRAINING YELLOW URINE. IV SITE ON LEFT AC G20, INTACT, PATENT, WITH SL IN PLACE. JOSE MIDLINE PATENT, INTACT,NS INFUSING AT 75CC ML/HR. BED IN LOW LOCKED POSITION. CALL LIGHT WITHIN REACH.ENDORSED TO AM NURSE FOR ELEANOR Addendum: 07/11/19 at 1445 by GURJIT ALVAREZ RN OTHER NURSE USED MELANY ECHEVERRIA
[2019-07-11] MEDS: VANCOMYCIN 0.75 GM in IV D5W 250 ML IV SCH ×2 (07:40→17:54)
[2019-07-11] MEDS: SUCRALFATE 1 G TABLET PO SCH ×4 (07:40→22:21)
[2019-07-11 08:00] VITALS: BP 138/56
[2019-07-11] MEDS: ACETYLCYSTEINE 10% SOLN 400 MG/4 ML VIAL NEB SCH ×2 (08:21→15:15)
[2019-07-11] MEDS: TOBRAMYCIN 120 MG in IV D5W 50 ML IV SCH (09:37)
[2019-07-11] MEDS: methylPREDNISolone SOD SUCC 125 MG/2ML VIAL IV SCH (09:38)
[2019-07-11] MEDS: FLUCONAZOLE (100 MG) 100 MG TABLET PO SCH (09:39)
[2019-07-11] MEDS: ENOXAPARIN SODIUM 40 MG/0.4 ML DISP.SYRIN SQ SCH (09:41)
[2019-07-11] MEDS: NITROGLYCERIN 30 GM TUBE TP SCH ×2 (09:42→21:42)
[2019-07-11] MEDS: PANTOPRAZOLE 40 MG VIAL IV SCH (10:31)
[2019-07-11] MEDS ORDERED: SIMETHICONE SUSP 40 MG/0.6 ML BOTTLE GT PRN (11:00)
[2019-07-11 12:00] VITALS: BP 124/68
[2019-07-11] MEDS: GLUCERNA 1.2 1,000 ML BOTTLE NG PRN (12:15)
--- NOTE | 2019-07-11 12:30 | NUR ---
PIPE LAYER HELPER NOTES INSULIN NOT ADMINISTRATED BG 153MG /DL PATIENT IS NPO
--- NOTE | 2019-07-11 12:35 | NUR ---
MASTER PLUMBER NOTES PER DR MANE LOO TO RESUME GTUBE FEEDING.
[2019-07-11 16:00] VITALS: BP 137/72
--- NOTE | 2019-07-11 19:10 | NUR ---
PIPELAYER NOTES PATIENT IN BED AWAKE, NON VERBAL. NO SOB OR DISCOMFORT NOTED AT THIS TIME. ALL NEEDS ATTENDED, ALL MEDICATIONS ADMINISTRATED. NO RESIDUAL NOTED FROM THE G TUBE SITE. IV SITE PATENT ON THE RIGHT ARM. NOTED REDNESS ON THE LEFT ARM IV SITE AND NOTIFIED CLINICAL CYTOPATHOLOGIST NURSE. CALL LIGHT WITHIN REACH , BED AT THE LOWEST POSITION LOCKED. ENDORSED TO CLINICAL CYTOPATHOLOGIST NURSE FOR ELEANOR.
--- NOTE | 2019-07-11 19:30 | NUR ---
RN OPENING NOTE RECEIVED PATIENT IN BED AWAKE NON VERBAL, WITH HOB UP ON DROPLET ISOLATIONS. ON GLUCERNA 1.2 RUNNING AT 45 ML/HR GTUBE FEEDING PER AM NURSE IV SITE TO MIKE MOHR, JOSE MIDLINE #18 PATENT AND INTACT NS RUNNING AT 75 ML/HR. BAPTISTE CATH PATENT AND DRAINING YELLOW URINE, ON MECHANICAL VENT AND TOLERATING SETTINGS. CALL LIGHT WITHIN REACH, BED LOCKED AT THE LOWEST POSITION, WILL CONTINUE TO MONITOR THE PT.
[2019-07-11 20:00] VITALS: BP 131/58
--- NOTE | 2019-07-11 20:27 | NUR ---
RT NOTE PT RECEIVED TRACHED ON MECHANICAL VENTILATION. PT AWAKE/ALERT. AMBU BAG @ BEDSIDE. TX GIVEN, NO ADVERSE REACTIONS NOTED. SX DONE, TRACH SECURED AND PATENT. ALARMS ON AND AUDIBLE. NO DISTRESS NOTED AT THIS TIME. CONT. PULSE OX CONNECTED. WILL MONITOR. Addendum: 07/11/19 at 2028 by HAMILTON PEARSON RT Amended: Links added.
--- NOTE | 2019-07-11 21:45 | NUR ---
2145 PHARMACY AWARE OF CRITICAL TOBRAMYCIN 2.1 RESULT.
[2019-07-11] MEDS: IV NS 0.9% 1,000 ML IV PRN (22:28)
[2019-07-12] VITALS: BP 115/52
[2019-07-12] MEDS: BLOOD SUGAR DIAGNOSTIC 1 EACH STRIP IN SCH ×5 (00:22→23:58)
[2019-07-12] MEDS: INSULIN REGULAR, HUMAN 100 UNIT/ML 3 ML VIAL SQ PRN ×5 (00:27→23:55)
[2019-07-12] MEDS ORDERED: TOBRAMYCIN 120 MG in IV D5W 50 ML IV SCH (02:00)
[2019-07-12] MEDS: MEROPENEM 1 G in IV NS 0.9% 100 ML IV SCH ×3 (02:08→19:05)
[2019-07-12] MEDS: ALBUTEROL HALF STRENGTH 1.25 MG/3 ML VIAL.NEB NEB SCH ×7 (03:53→23:27)
[2019-07-12] MEDS: IPRATROPIUM NEB FS 0.5 MG/2.5 ML AMPUL.NEB NEB SCH ×7 (03:54→23:27)
[2019-07-12 04:00] VITALS: BP 105/51
[2019-07-12 06:58] LABS: CALCIUM, SERUM 8.2 mg/dL (8.5-10.1); CARBON DIOXIDE 26 mmol/L (21-32); CHLORIDE 106 mmol/L (98-107); CREATININE 0.7 mg/dL (0.6-1.3); GLUCOSE 103 mg/dL (74-106); POTASSIUM 3.3 mmol/L (3.5-5.1); SODIUM SERUM 141 mmol/L (136-145); UREA NITROGEN, BLOOD 25 mg/dL (7-18)
[2019-07-12] MEDS: ACETYLCYSTEINE 10% SOLN 400 MG/4 ML VIAL NEB SCH ×4 (07:50→23:27)
[2019-07-12 08:00] VITALS: BP 145/70
--- NOTE | 2019-07-12 08:22 | NUR ---
RT NOTE PT REC'D TRACHED ON MECHANICAL VENTILATION. AMBU BAG @ BEDSIDE. TX GIVEN, NO ADVERSE REACTIONS NOTED. SX DONE, TRACH SECURED AND PATENT. ALARMS ON AND AUDIBLE. VENT PLUGGED TO RED OUTLET. NO DISTRESS NOTED AT THIS TIME. Addendum: 07/12/19 at 0823 by HALIE VU RT Amended: Links added.
[2019-07-12] MEDS ORDERED: POTASSIUM CHLORIDE 20 MEQ POWDER PACKET NG SCH (08:30)
[2019-07-12] MEDS: VANCOMYCIN 0.75 GM in IV D5W 250 ML IV SCH ×2 (08:55→18:05)
[2019-07-12] MEDS: NITROGLYCERIN 30 GM TUBE TP SCH ×3 (09:11→20:43)
[2019-07-12] MEDS: FLUCONAZOLE (100 MG) 100 MG TABLET PO SCH (09:12)
[2019-07-12] MEDS: methylPREDNISolone SOD SUCC 125 MG/2ML VIAL IV SCH (09:12)
[2019-07-12] MEDS: ENOXAPARIN SODIUM 40 MG/0.4 ML DISP.SYRIN SQ SCH (09:13)
[2019-07-12] MEDS: SUCRALFATE 1 G TABLET PO SCH ×4 (09:17→21:08)
[2019-07-12 10:28] LABS: ABG BASE EXCESS -0.8 mmol/L; ABG OXYGEN SATURATION 89.1 % (92.0-98.5); ABG PCO2 34.4 mmHg (35.0-45.0); ABG PO2 54.3 mmHg (75.0-100.0); AaDO2 263.5 mmHg; COHb 0.3 % (0.5-1.5); MetHb 0.7 % (0.0-1.5); O2Hb 88.2 % (94.0-97.0); SITE, ABG Right Radial; VENT MODE, BG AC 16 550 50% +5
[2019-07-12] MEDS: PANTOPRAZOLE 40 MG VIAL IV SCH (10:41)
--- NOTE | 2019-07-12 10:55 | NUR ---
RN NOTE RECEIVED REPORT FROM ALBERTA WARD. THE PATIENT IS RECEIVED IN BED AND AWAKE. PATIENT ALERT TO SELF, COMMUNICATES BY EYES AND MAKING SOUNDS. THE PATIENT IS ON VENT AND TOLERATES THE SETTING WELL. NO S/S DISTRESS NOTED. TELE MONITORING READING IS ST 78. BAPTISTE CATH PRESENT AND NOTED CLEAR, YELLOW COLOR OUTPUT. NO BLADDER DISTENSION NOTED. GT FEEDING GLUCERNA 1.2 INFUSING AT 65ML/HR. ABDOMEN SOFT AND NON-DISTENDED.JOSE MIDLINE G 18 PATENT AND NS INFUSING AT 75ML/HR. NO S/S INFILTRATION NOTED. THE BED LOW AND LOCKED. SIDE RAILS UP X3. CALL LIGHT WITHIN REACH. COVID-19 ISOLATION PRECAUTIONS OBSERVED. WILL CONTINUE TO MONITOR.
[2019-07-12 12:00] VITALS: BP 147/72
[2019-07-12 16:00] VITALS: BP 141/75
[2019-07-12] MEDS: GLUCERNA 1.2 1,000 ML BOTTLE NG PRN (16:49)
[2019-07-12] MEDS: IV NS 0.9% 1,000 ML IV PRN (16:56)
--- NOTE | 2019-07-12 19:03 | NUR ---
RN NOTE THE PATIENT IS RECEIVED IN BED AND AWAKE. PATIENT ALERT TO SELF, COMMUNICATES BY EYES AND MAKING SOUNDS. THE PATIENT IS ON VENT AND TOLERATES THE SETTING WELL. NO S/S DISTRESS NOTED. TELE MONITORING READING IS ST 71. BAPTISTE CATH PRESENT AND NOTED CLEAR, YELLOW COLOR OUTPUT. NO BLADDER DISTENSION NOTED. GT FEEDING GLUCERNA 1.2 INFUSING PER ORDER AND NOTED ONLY 10 ML RESIDUAL. ABDOMEN SOFT AND NON-DISTENDED. JOSE MIDLINE G 18 PATENT AND NS INFUSING AT 75ML/HR. NO S/S INFILTRATION NOTED. COVID-19 ISOLATION PRECAUTIONS OBSERVED. BED LOW AND LOCKED. SIDE RAILS UP X3. CALL LIGHT WITHIN REACH. WILL ENDORSE TO CLINICAL EDUCATION ACADEMIC COORDINATOR.
--- NOTE | 2019-07-12 19:40 | NUR ---
RT NOTE PT RECEIVED TRACHED ON MECHANICAL VENTILATION. PT AWAKE/ALERT. AMBU BAG @ BEDSIDE. TX GIVEN, NO ADVERSE REACTIONS NOTED. SX DONE, TRACH SECURED AND PATENT. ALARMS ON AND AUDIBLE. NO DISTRESS NOTED AT THIS TIME. CONT. PULSE OX CONNECTED. VENT PLUGGED TO RED OUTLET. WILL MONITOR. Addendum: 07/12/19 at 1943 by HAMILTON PEARSON RT Amended: Links added.
[2019-07-12 20:00] VITALS: BP 127/67
--- NOTE | 2019-07-12 20:00 | NUR ---
RN OPENING NOTE RECEIVED PATIENT IN BED AWAKE NON VERBAL, WITH HOB ELEVATED ON DROPLET ISOLATIONS.PRECAUTIONARY MEASURES OBSERVED AT ALL TIMES. ON GLUCERNA 1.2 RUNNING AT 65 ML/HR WELL TOLERATED .IV SITE TO JOSE MIDLINE #18 PATENT AND INTACT IVF NS AT 75 ML/HR. INFUSING WELL BAPTISTE CATH PATENT /INTACT DRAINING YELLOWISH URINE OUTPUT, ON MECHANICAL VENT SETTING AC TOLERATING WELL,SR ON THE MONITOR ,NO SOB NO DISTRESS NOTED SATING 100% V/S STABLE AFEBRILE ,CALL LIGHT WITHIN REACH, BED LOCKED AT THE LOWEST POSITION, WILL CONTINUE TO MONITOR THE PT.
--- NOTE | 2019-07-12 21:00 | NUR ---
RN NOTES DUE MEDS GIVEN ORDERED , NO ASE NOTED .TURNED AND REPOSITION q 2 HRS , SUCTION SECRETION DONE .KEPT PT DRY AND COMFORTABLE NO ELEANOR NOTED .
[2019-07-12] MEDS: TOBRAMYCIN 80 MG in IV D5W 50 ML IV SCH (21:06)
[2019-07-13] VITALS: BP 110/52
--- NOTE | 2019-07-13 | NUR ---
RN NOTES BLOOD SUGAR AT 12MN IS 177MMO/DL 4 UNITS OF REGULAR INSULIN GIVEN PER SLIDING SCALE , PTS ON GT FEEDING OF GLUCERNA 1.2 AT 65CC/HR WILL CHECK BS AGAIN AT 6AM.
[2019-07-13] MEDS: MEROPENEM 1 G in IV NS 0.9% 100 ML IV SCH ×2 (01:35→10:50)
[2019-07-13] MEDS: ALBUTEROL HALF STRENGTH 1.25 MG/3 ML VIAL.NEB NEB SCH ×6 (03:32→23:01)
[2019-07-13] MEDS: IPRATROPIUM NEB FS 0.5 MG/2.5 ML AMPUL.NEB NEB SCH ×6 (03:32→23:01)
[2019-07-13 04:00] VITALS: BP_SYST 108; BP_DIAS 51; BP_DIAS 52
--- NOTE | 2019-07-13 06:00 | NUR ---
RN NOTES BLOOD SUGAR AT 0600HRS IS 131 MMOL 2 UNITS OF REGULAR INSULIN GIVEN PER SLIDING SCALE.
[2019-07-13] MEDS: BLOOD SUGAR DIAGNOSTIC 1 EACH STRIP IN SCH ×3 (06:25→18:24)
[2019-07-13] MEDS: INSULIN REGULAR, HUMAN 100 UNIT/ML 3 ML VIAL SQ PRN ×3 (06:29→18:26)
[2019-07-13] MEDS: VANCOMYCIN 0.75 GM in IV D5W 250 ML IV SCH (06:31)
--- NOTE | 2019-07-13 06:47 | NUR ---
RN NOTES PT REMAINS IN BED ON MECHANICAL VENTILATOR TOLERATING WELL , WILL ENDORSE TO RN DAY SHIFT FOR CONTINUITY OF CARE.
[2019-07-13 06:48] LABS: CALCIUM, SERUM 8.4 mg/dL (8.5-10.1); CREATININE 0.7 mg/dL (0.6-1.3); POTASSIUM 3.9 mmol/L (3.5-5.1)
--- NOTE | 2019-07-13 07:05 | NUR ---
SELF PAY REPRESENTATIVE NOTES OPENING PATIENT IN BED A/OX3-4 NON VERBAL. SINUS RHYTHM 70`S. PATIENT IS WAITING FOR COVID 19 RESULTS ON DROPLET ISOLATION. NO SOB OR DISCOMFORT NOTED AT THIS TIME. NO RESIDUAL NOTED FROM GT SITE. IV RIGHT UPPER ARM PATENT RUNNING NS AT 75ML/H. CALL LIGHT WITHIN REACH . BED AT THE LOWEST POSITION LOCKED. WILL CONTINUE TO MONITOR THE PATIENT.
[2019-07-13 08:00] VITALS: BP 130/76
[2019-07-13] MEDS: ACETYLCYSTEINE 10% SOLN 400 MG/4 ML VIAL NEB SCH ×3 (08:38→23:01)
[2019-07-13] MEDS: SUCRALFATE 1 G TABLET PO SCH ×4 (09:17→22:05)
[2019-07-13] MEDS: methylPREDNISolone SOD SUCC 125 MG/2ML VIAL IV SCH (09:17)
[2019-07-13] MEDS: TOBRAMYCIN 80 MG in IV D5W 50 ML IV SCH ×2 (09:18→22:05)
[2019-07-13] MEDS: FLUCONAZOLE (100 MG) 100 MG TABLET PO SCH (09:18)
[2019-07-13] MEDS: NITROGLYCERIN 30 GM TUBE TP SCH ×2 (09:18→22:05)
[2019-07-13] MEDS: ENOXAPARIN SODIUM 40 MG/0.4 ML DISP.SYRIN SQ SCH (09:21)
[2019-07-13] MEDS: PANTOPRAZOLE 40 MG VIAL IV SCH ×2 (09:22→10:49)
[2019-07-13] MEDS: GLUCERNA 1.2 1,000 ML BOTTLE NG PRN ×2 (09:42→23:05)
[2019-07-13 12:00] VITALS: BP 121/52
[2019-07-13 16:00] VITALS: BP 122/59
--- NOTE | 2019-07-13 19:20 | NUR ---
REPLANTING MACHINE CREWMAN NOTES PATIENT IN BED AWAKE, NO SOB OR DISCOMFORT NOTED, VITALS WNL. RU ARM MIDLINE PATENT. NO RESIDUAL NOTED AT GT SIDE. ALL NEEDS ATTENDED , MEDICATIONS ADMINISTRATED. CALL LIGHT WITHIN REACH. BED AT THE LOWEST POSITION LOCKED. ENDORSED TO WEED BURNER NURSE FOR ELEANOR.
--- NOTE | 2019-07-13 19:30 | NUR ---
RN OPENING NOTES: PATIENT IN BED, ON VENT VIA TRACH, TOLERATING CURRENT SETTINGS WELL. NO SOB. NO S/S OF PAIN. HOB ELEVATED. ON GTF AT 65 MLS/HR, TOLERATING WELL, NO RESIDUALS. JOSE MIDLINE C/D/I. ON NS AT 75 MLS/HR. BAPTISTE INTACT AND DRAINING URINE. SAFETY PRECAUTIONS IMPLEMENTED. BED LOCKED, LOW POSITION. HOB ELEVATED. CALL LIGHT WITHIN REACH. WILL CONT. TO MONITOR.
[2019-07-13 20:00] VITALS: BP 120/64
[2019-07-13] MEDS: IV NS 0.9% 1,000 ML IV PRN (23:15)
[2019-07-14] VITALS (7 sets, daily range): BP systolic 113–152; BP diastolic 55–79
--- NOTE | 2019-07-14 00:20 | NUR ---
RN NOTE: 0020, CALLED PHARMACY AND SPOKE WITH JAZMÍN. CHARGE NURSE SPOKE WITH LAB AND SAID THEY TRIED X2, PATIENT IS HARD STICK AND UNABLE TO GET FROM HIS JOSE MIDLINE. TROUGH NOT DONE. PHARMACIST MADE AWARE. ASKED IF I SHOULD GIVE THE TOBRAMYCIN DOSE. PER KELI, OK TO GIVE SCHEDULED TOBRAMYCIN AT THIS TIME AND HAVE LAB TO TRY TO DRAW BLOOD FOR PEAK AFTER 30 MINS. AT 0040, NOTIFIED NGA FROM LAB.
[2019-07-14] MEDS: BLOOD SUGAR DIAGNOSTIC 1 EACH STRIP IN SCH ×5 (00:22→23:50)
[2019-07-14] MEDS: INSULIN REGULAR, HUMAN 100 UNIT/ML 3 ML VIAL SQ PRN ×4 (00:23→23:52)
[2019-07-14] MEDS: TOBRAMYCIN 80 MG in IV D5W 50 ML IV SCH ×3 (00:28→22:09)
--- NOTE | 2019-07-14 01:30 | NUR ---
RN NOTE: LAB UNABLE TO GET PEAK LEVEL FROM PATIENT. CHARGE NURSE AWARE.
[2019-07-14] MEDS: ALBUTEROL HALF STRENGTH 1.25 MG/3 ML VIAL.NEB NEB SCH ×5 (03:56→20:01)
[2019-07-14] MEDS: IPRATROPIUM NEB FS 0.5 MG/2.5 ML AMPUL.NEB NEB SCH ×5 (03:56→20:01)
--- NOTE | 2019-07-14 06:40 | NUR ---
RN CLOSING NOTES: PATIENT IN BED, ON VENT VIA TRACH, TOLERATING CURRENT SETTINGS WELL. NO RESPIRATORY DISTRESS. O2 SAT 95-100%. NO S/S OF PAIN. HOB ELEVATED. ON GTF AT 65 MLS/HR, TOLERATING WELL, NO RESIDUALS. JOSE MIDLINE C/D/I. ON NS AT 75 MLS/HR. BAPTISTE INTACT AND DRAINING URINE. SAFETY PRECAUTIONS IMPLEMENTED. BED LOCKED, LOW POSITION. HOB ELEVATED. STILL PENDING FOR COVID RESULT. WILL ENDORSE TO AM SHIFT NURSE TO ORDER PEAK AND TROUGH FOR SCHEDULED TOBRAMYCIN DOSE IN AM AND CONTINUITY OF CARE.
[2019-07-14 06:49] LABS: EOSINOPHILS % (AUTO) 0.1 % (0.0-6.0); HEMATOCRIT 38 % (39-51); HEMOGLOBIN 11.8 g/dL (13.5-17.5); LYMPHOCYTES # (AUTO) 1.7 /CMM (0.8-4.8); LYMPHOCYTES % (AUTO) 12.1 % (20.0-44.0); MEAN CORPUSCULAR HGB CONC 31 g/dl (31.0-36.0); MEAN CORPUSCULAR VOLUME 94 fL (80-96); MONOCYTES # (AUTO) 0.8 /CMM (0.1-1.30); MONOCYTES % (AUTO) 5.6 % (2.0-12.0); NEUTROPHILS # (AUTO) 11.8 /CMM (1.8-8.9); NEUTROPHILS % (AUTO) 82.2 % (43.0-81.0); PLATELET COUNT (AUTO) 162 /CMM (150-450); RED BLOOD CELL COUNT(AUTO) 4.02 MIL/uL (4.5-6.0); WHITE BLOOD COUNT (AUTO) 14.3 K/uL (4.3-11.0)
[2019-07-14 06:59] LABS: CALCIUM, SERUM 8.6 mg/dL (8.5-10.1); CREATININE 0.7 mg/dL (0.6-1.3); MAGNESIUM 2.1 mg/dL (1.8-2.4); POTASSIUM 4.9 mmol/L (3.5-5.1)
--- NOTE | 2019-07-14 07:09 | NUR ---
ENDORSED TO AM SHIFT NURSE TO ORDER PEAK AND TROUGH FOR SCHEDULED TOBRAMYCIN DOSE IN AM AND CONTINUITY OF CARE.
[2019-07-14] MEDS: SUCRALFATE 1 G TABLET PO SCH ×4 (07:19→22:02)
[2019-07-14] MEDS: ACETYLCYSTEINE 10% SOLN 400 MG/4 ML VIAL NEB SCH ×2 (07:43→16:53)
--- NOTE | 2019-07-14 07:43 | NUR ---
RN OPENING NOTES RECEIVED PATIENT RESTING IN BED COMFORTABLY. PT IS AOX1, NON-VERBAL, AND BED BOUND. HE IS ON MECH VENT WITH SHILEY XLT 8, TOLERATING VENT SETTINGS WELL, NO SOB OR RESP DISTRESS. TELE MONITOR IS SHOWING SR WITH PVC. BAPTISTE CATH IS PATENT AND INTACT, DRAINING CLEAR AND YELLOW URINE. GTUBE IS INTACT, GLUCERNA AT 1.2 @65ML/HR, NO RESIDUAL. JOSE MIDLINE IS PATENT AND INTACT, NS AT 75 ML/HR. SAFETY MEASURES HAVE BEEN IMPLEMENTED, CALL LIGHT IS WITHIN REACH, BED IS IN LOWEST AND LOCKED POSITION, SIDE RAILS UP X2, WILL CONTINUE TO MONITOR
[2019-07-14 08:07] LABS: LYMPHOCYTES % (MANUAL) 9 % (16-48); MONOCYTES % (MANUAL) 5 % (0-11.0); MYELOCYTES % 2 % (0-0); NEUTROPHILS % (MANUAL) 84 (42-76)
[2019-07-14] MEDS: methylPREDNISolone SOD SUCC 125 MG/2ML VIAL IV SCH (09:03)
[2019-07-14] MEDS: FLUCONAZOLE (100 MG) 100 MG TABLET PO SCH (09:03)
[2019-07-14] MEDS: ENOXAPARIN SODIUM 40 MG/0.4 ML DISP.SYRIN SQ SCH (09:04)
[2019-07-14] MEDS: NITROGLYCERIN 30 GM TUBE TP SCH ×2 (09:23→21:40)
--- NOTE | 2019-07-14 10:53 | NUR ---
RN NOTES TOBRAMYCIN TROUGH HAS BEEN DELAYED. SPOKE WITH PHARMACY, WAS INSTRUCTED TO HOLD 1000 DOSE AND THEY WILL FOLLOW UP, WILL CONTINUE TO MONITOR
[2019-07-14] MEDS: PANTOPRAZOLE 40 MG VIAL IV SCH (11:43)
--- NOTE | 2019-07-14 12:11 | NUR ---
RN NOTES TOBRAMYCIN TROUGH IS STILL PENDING. SPOKE WITH PHARMACY AND WAS GIVEN THE OK TO ADMINISTER 1200 DOSE.
[2019-07-14 13:51] LABS: ABG BASE EXCESS 0.9 mmol/L; ABG OXYGEN SATURATION 83.9 % (92.0-98.5); ABG PCO2 41.7 mmHg (35.0-45.0); ABG PH 7.407 (7.350-7.450); ABG PO2 45.7 mmHg (75.0-100.0); AaDO2 263.9 mmHg; COHb 0.2 % (0.5-1.5); MetHb 0.4 % (0.0-1.5); O2Hb 83.4 % (94.0-97.0); SITE, ABG Right Radial; VENT MODE, BG AC 16 550 50% +5
[2019-07-14] MEDS: IV NS 0.9% 1,000 ML IV PRN (14:24)
[2019-07-14 15:59] LABS: ABG BASE EXCESS -1.3 mmol/L; ABG OXYGEN SATURATION 98.6 % (92.0-98.5); ABG PCO2 30.8 mmHg (35.0-45.0); ABG PH 7.465 (7.350-7.450); ABG PO2 156.9 mmHg (75.0-100.0); COHb 0.3 % (0.5-1.5); MetHb 0.4 % (0.0-1.5); O2Hb 97.9 % (94.0-97.0); VENT MODE, BG AC 16 550 50% +5
[2019-07-14] MEDS: GLUCERNA 1.2 1,000 ML BOTTLE NG PRN (17:19)
--- NOTE | 2019-07-14 18:54 | NUR ---
RN CLOSING NOTES PATIENT IS RESTING IN BED COMFORTABLY AT THIS TIME. VENT SETTINGS HAVE BEEN ADJUSTED PATIENT TOLERATES. NO S/SX OF DISTRESS AT THIS TIME. NO ACUTE CHANGES OCCURRED THROUGHOUT THE SHIFT, VITAL SIGNS ARE STABLE, PT NEEDS HAVE BEEN MET. SAFETY MEASURES HAVE BEEN IMPLEMENTED, CALL LIGHT IS WITHIN REACH, BED IS IN LOWEST AND LOCKED POSITION, SIDE RAIL UP X2, WILL ENDORSE TO NIGHTSHIFT RN FOR ELEANOR.
--- NOTE | 2019-07-14 23:37 | NUR ---
RT NOTE Pt rec'd trached on the [facility] vent on ac mode on noted settings. Pt shows no signs of resp distress or sob. Trach is patent and secured. Pt sx'd for thick mod amt of pale yellow secretions. Alarms are set and audible. Vent plugged into red outlet, Ambu bag bedside. Will continue to monitor closely. Addendum: 07/14/19 at 2345 by CHACHO MANCERA RT Amended: Links added.
[2019-07-15] VITALS: BP_SYST 127; BP_SYST 136; BP_DIAS 68; BP_DIAS 97
[2019-07-15] MEDS: ALBUTEROL HALF STRENGTH 1.25 MG/3 ML VIAL.NEB NEB SCH ×4 (00:15→12:26)
[2019-07-15] MEDS: ACETYLCYSTEINE 10% SOLN 400 MG/4 ML VIAL NEB SCH ×2 (00:15→07:48)
[2019-07-15] MEDS: IPRATROPIUM NEB FS 0.5 MG/2.5 ML AMPUL.NEB NEB SCH ×4 (00:15→12:26)
[2019-07-15 04:00] VITALS: BP_SYST 118; BP_SYST 122; BP_DIAS 62; BP_DIAS 68
[2019-07-15] MEDS: IV NS 0.9% 1,000 ML IV PRN (04:16)
[2019-07-15] MEDS: INSULIN REGULAR, HUMAN 100 UNIT/ML 3 ML VIAL SQ PRN ×2 (06:22→11:45)
[2019-07-15] MEDS: BLOOD SUGAR DIAGNOSTIC 1 EACH STRIP IN SCH ×2 (06:22→11:06)
--- NOTE | 2019-07-15 06:24 | NUR ---
rn notes no significant change of condition, alert to self, non verbal. no distress noted. breathing even and unlabored. vent setting well tolerated. no physical manifestation of pain or discomfort. still waiting for covid-19 result. kept clean and dry. will endorse to next shift for continuity of care
[2019-07-15 06:47] LABS: CALCIUM, SERUM 8.6 mg/dL (8.5-10.1); CREATININE 0.6 mg/dL (0.6-1.3); POTASSIUM 4.7 mmol/L (3.5-5.1)
--- NOTE | 2019-07-15 07:39 | NUR ---
RN OPENING NOTES RECEIVED PATIENT RESTING COMFORTABLY IN BED. PT IS A/O X1, NON VERBAL. PT IS ON MECHANICAL VENTILATOR WITH SETTINGS ORDERED, TOLERATING WELL, SATURATING WELL. NO SOB OR RESPIRATORY DISTRESS NOTED. ON TELE MONITOR WITH SR W/ PVC NOTED. PT HAS A BAPTISTE IN PLACE, INTACT AND DRAINING URINE. GTF IS RUNNING @ 65ML/HR, NO RESIDUAL NOTED, TOLERATING WELL. SAFETY MAINTAINED, CALL LIGHT WITHIN REACH, WILL CONTINUE TO MONITOR CLOSELY.
[2019-07-15 08:00] VITALS: BP 138/74
[2019-07-15] MEDS: SUCRALFATE 1 G TABLET PO SCH ×2 (08:06→11:06)
[2019-07-15] MEDS: FLUCONAZOLE (100 MG) 100 MG TABLET PO SCH (08:06)
[2019-07-15] MEDS: ENOXAPARIN SODIUM 40 MG/0.4 ML DISP.SYRIN SQ SCH (08:06)
[2019-07-15] MEDS: methylPREDNISolone SOD SUCC 125 MG/2ML VIAL IV SCH (08:07)
[2019-07-15] MEDS: NITROGLYCERIN 30 GM TUBE TP SCH (08:11)
[2019-07-15] MEDS: GLUCERNA 1.2 1,000 ML BOTTLE NG PRN (08:12)
--- NOTE | 2019-07-15 09:52 | NUR ---
RN NOTE SPOKE TO PHARMACY REGARDING THROMBOMYCIN DUE AT 1200. OK TO GIVE, MIGHT INCREASE THE EVENING DOSE DUE TO PEAK LEVEL BEING LOW. WILL CARRYOUT ORDERS. SAFETY MAINTAINED, CALL LIGHT WITHIN REACH, WILL CONTINUE TO MONITOR.
[2019-07-15 12:00] VITALS: BP 134/56
[2019-07-15] MEDS ORDERED: D5W IV SCH (12:00)
[2019-07-15] MEDS ORDERED: TOBRAMYCIN IV SCH (12:00)
--- NOTE | 2019-07-15 15:30 | NUR ---
RN CLOSING NOTES PATIENT PICKED UP BY AMBULANCE TO BE TRANSFERRED TO [facility], WHERE HE HAVE CAME FROM. REPORT WAS CALLED AND GIVEN TO ELLY AT 1330. PATIENT IS IN STABLE CONDITION, VENT DEPENDENT, CARRIED OUT BY AMBULANCE VIA A GURNEY. PATIENT SAFETY MAINTAINED, ENDORSED TO ELLY TO CONTINUE CARE AT [facility].
== END 2019-07-15 16:09 | disposition expired | DRG 870 ==
LOC: ER 20:32 → TELE-TD 23:40 → TELE1 06-30 00:45 → ICU 07-05 08:27 → TELE-TD 07-10 01:24 → TELE1 07-10 11:33
PROVIDERS: ADMIT Internal Medicine; ATTEND Legal Medicine
PROC: 5A1955Z Respiratory Ventilation, Greater than 96 Consecutive Hours (ICD-10-PCS; principal; 2019-06-29)
PROC: 30233N1 Transfusion of Nonautologous Red Blood Cells into Peripheral Vein, Percutaneous Approach (ICD-10-PCS; 2019-06-29)
PROC: 05HB33Z Insertion of Infusion Device into Right Basilic Vein, Percutaneous Approach (ICD-10-PCS; 2019-07-07)
DX: A41.9 Sepsis, unspecified organism (principal); G93.41 Metabolic encephalopathy; N17.0 Acute kidney failure with tubular necrosis; J96.21 Acute and chronic respiratory failure with hypoxia; R53.2 Functional quadriplegia; J18.9 Pneumonia, unspecified organism; D68.69 Other thrombophilia; E87.1 Hypo-osmolality and hyponatremia; N39.0 Urinary tract infection, site not specified; Z99.11 Dependence on respirator [ventilator] status; J98.11 Atelectasis; E87.0 Hyperosmolality and hypernatremia; L97.829 Non-pressure chronic ulcer of other part of left lower leg with unspecified severity; L97.819 Non-pressure chronic ulcer of other part of right lower leg with unspecified severity; T17.990A Other foreign object in respiratory tract, part unspecified in causing asphyxiation, initial encounter; Z93.0 Tracheostomy status; Z93.1 Gastrostomy status; Z79.4 Long term (current) use of insulin; E83.42 Hypomagnesemia; E83.51 Hypocalcemia; E87.6 Hypokalemia; E86.1 Hypovolemia; F03.90 Unspecified dementia, unspecified severity, without behavioral disturbance, psychotic disturbance, mood disturbance, and anxiety; Z79.82 Long term (current) use of aspirin; G89.29 Other chronic pain; R13.10 Dysphagia, unspecified; E11.22 Type 2 diabetes mellitus with diabetic chronic kidney disease; D63.8 Anemia in other chronic diseases classified elsewhere; E11.65 Type 2 diabetes mellitus with hyperglycemia; G40.909 Epilepsy, unspecified, not intractable, without status epilepticus; I25.10 Atherosclerotic heart disease of native coronary artery without angina pectoris; I70.0 Atherosclerosis of aorta; M81.0 Age-related osteoporosis without current pathological fracture; Z79.51 Long term (current) use of inhaled steroids; Z79.899 Other long term (current) drug therapy; I12.9 Hypertensive chronic kidney disease with stage 1 through stage 4 chronic kidney disease, or unspecified chronic kidney disease; N40.0 Benign prostatic hyperplasia without lower urinary tract symptoms; B96.20 Unspecified Escherichia coli [E. coli] as the cause of diseases classified elsewhere; M48.00 Spinal stenosis, site unspecified; N18.3 Chronic kidney disease, stage 3 (moderate); J44.9 Chronic obstructive pulmonary disease, unspecified; T38.0X5A Adverse effect of glucocorticoids and synthetic analogues, initial encounter; Y92.9 Unspecified place or not applicable; Y95 Nosocomial condition; X58.XXXA Exposure to other specified factors, initial encounter
CPT/HCPCS: 31720; 36415; 36600; 71045-TC; 74018; 80048-TC; 80053-TC; 80076-TC; 80170-TC; 80202-TC; 81000-TC; 82728-TC; 82803-TC; 82962-TC; 83540-TC; 83605-TC; 83735-TC; 83880; 83970; 84100-TC; 84484-TC; 85025-TC; 85027-TC; 85730-TC; 86850-TC; 86921-TC; 87040-TC; 87070-TC; 87081-TC; 87086-TC; 87186-TC; 93970-TC; 94002-TC; 94003-TC; 94760-TC; 94762-TC; 94799-TC; 99082-TC; A4216; A6253; A7526; C9113; G0378; J0696; J1650; J1815; J2185; J2543; J2916; J2930; J3260; J3370; J3475; J3480; J7030; J7040; J7050; J7060; P9016-BL; U0002